=== PATIENT | female | born 1950 | race African-American/Black ===

== ENCOUNTER 2024-08-07 09:36 | Emergency (ER) | payer MEDICARE, MEDICAID, SELFPAY ==
[2024-08-07] VITALS (22 sets, daily range): BP systolic 127–152; BP diastolic 77–89; PULSE 73–99; RESP 16; TEMP 37; O2SAT 97–100
--- NOTE | ~2024-08-07 | XR_ITS ---
EXAMINATION: XR chest 1V portable DATE: 08/07/2024 10:39 INDICATION: Cough and aspiration TECHNIQUE: frontal view of the chest was obtained. COMPARISON: None FINDINGS: Multiple skinfolds project over the right hemithorax. Visualized lungs are clear with no focal airspa ce opacities, pulmonary edema, pleural effusion or pneumothorax. The cardiomediastinal silhouette is normal. Degenerative change at the right shoulder which is partially obscured by the patient's superi mposed hand. Suggestion of prior left acromioplasty and distal clavicle resection. IMPRESSION: 1. No acute cardiopulmonary disease. Reviewed, dictated and finalized at location A. EL TECHNICIAN
--- NOTE | 2024-08-07 10:19 | ED_ITS ---
HPI - General Adult General Chief complaint: Unspecified Stated complaint: choking on sputum, resolved Time Seen by Provider: 08/07/24 10:02 History of Present Illness HPI narrative: 74-year-old female presenting after choking. Coming from a nursing facility. Her daughter is at bedside and states that the patient is currently at baseline. She reportedly had a coughing episode after eating this morning and her oxygen saturation dropped to the upper 80s. She was suctioned and her vitals normalized and EMS was called. Also concerned that her sodium might be too high as it was recently. Related Data Allergies Allergy/AdvReac Type Severity Reaction Status Date / Time No Known Allergies Allergy Verified 08/07/24 11:55 Review of Systems 2 Review of Systems: All systems reviewed & are unremarkable except as noted in HPI and below Exam 2 Narrative: GENERAL: Chronically ill-appearing, no acute distress, chronic contractures, nonverbal at baseline HEAD: Normocephalic, atraumatic. EYES: PERRLA and EOMI. ENT: Mucous membranes moist. NECK: Supple. CHEST: Clear to auscultation. No respiratory distress. HEART: Regular rate and rhythm. EXTREMITIES: Normal range of motion SKIN: Warm, dry, no rash. NEURO: Nonverbal and contracted at baseline PSYCH: Normal mood and affect. Course Vital Signs Vital signs: Vital Signs Temperature 98.6 F 08/07/24 09:32 Pulse Rate 99 08/07/24 09:32 Respiratory Rate 16 08/07/24 09:32 Blood Pressure 134/79 08/07/24 09:32 Pulse Oximetry 100 08/07/24 09:32 Oxygen Delivery Room Air 08/07/24 09:32 Temperature 98.6 F 08/07/24 09:32 Pulse Rate 73 08/07/24 14:46 Respiratory Rate 16 08/07/24 14:46 Blood Pressure 127/82 08/07/24 14:46 Pulse Oximetry 100 08/07/24 14:46 Oxygen Delivery Room Air 08/07/24 09:32 Medical Decision Making MDM Narrative Medical decision making narrative: 74-year-old female presenting with a choking episode. Vitals here within normal limits. She saturating 100% on room air. Exam remarkable for the above. Chest x-ray without acute abnormalities. Patient's daughter was concerned for dehydration so BMP was checked and sodium is 154. She is receiving a L of fluids for hydration and then she is safe for outpatient management. Discussed appropriate supportive care and follow-up. Her daughter is agreeable with this plan. Discharged in stable condition. Differential Diagnosis Differential Diagnosis: Choking episode, cough, aspiration, dehydration Medical Records Medical records reviewed: Yes I reviewed the external patient's medical records. Vital Signs Vital Signs: Vital Signs Temperature 98.6 F 08/07/24 09:32 Pulse Rate 99 08/07/24 09:32 Respiratory Rate 16 08/07/24 09:32 Blood Pressure 134/79 08/07/24 09:32 Pulse Oximetry 100 08/07/24 09:32 Oxygen Delivery Room Air 08/07/24 09:32 Temperature 98.6 F 08/07/24 09:32 Pulse Rate 73 08/07/24 14:46 Respiratory Rate 16 08/07/24 14:46 Blood Pressure 127/82 08/07/24 14:46 Pulse Oximetry 100 08/07/24 14:46 Oxygen Delivery Room Air 08/07/24 09:32 Lab Data Lab results reviewed: Yes I reviewed the patient's lab results. 08/07/24 11:24 Labs: Lab Results 08/07/24 Range/Units 11:24 Sodium 154 H (137-145) mmol/L Potassium 4.1 (3.4-5.0) mmol/L Chloride 117 H (98-107) mmol/L Carbon Dioxide 29 (22-30) mmol/L Anion Gap 8 (4-12) mmol/L BUN 17 (7-17) mg/dL Creatinine 0.70 (0.7-1.0) mg/dL Estim Creat Clear Calc 36 ml/min Estimated GFR > 60 (59 - ) Glucose 118 H (65-110) mg/dL Calcium 11.1 H (8.4-10.2) mg/dL Imaging Data Radiologist's impression: ITS Impressions Chest X-Ray 08/07/24 10:46 IMPRESSION: 1. No acute cardiopulmonary disease. Critical Care Time Critical Care Time Critical Care Time: No Discharge Plan Discharge Clinical Impression: Choking episode, Dehydration Patient Disposition: NH [facility]sp/Asst Living Condition: Stable Instructions: Antibiotic Form Additional Instructions: Please try to drink more hydrating fluids such as water, Gatorade, Powerade. Follow-up closely with your PCP. If your symptoms worsen or other concerning symptoms arise, please return to the ER. Patient Language: Romanian Follow-up/Referrals: Mikcey,MD Julian [Primary Care Provider] -
[2024-08-07 11:40] LABS: Anion Gap 8 mmol/L (4-12); Blood Urea Nitrogen 17 mg/dL (7-17); Calcium 11.1 mg/dL (8.4-10.2); Carbon Dioxide 29 mmol/L (22-30); Chloride 117 mmol/L (98-107); Estimated CRCL calculation 36 ml/min; Estimated Glomerular Filt Rate > 60; Glucose 118 mg/dL (65-110); Potassium 4.1 mmol/L (3.4-5.0); Sodium 154 mmol/L (137-145)
[2024-08-07] MEDS: Please add drug allergy info to patient profile. 1 EACH XX (12:01)
[2024-08-07] MEDS: SODIUM CHLORIDE 0.9% IV 1,000 ML 999 ML IV CONT (12:01)
--- NOTE | 2024-08-07 14:31 | PC.NURSE ---
Tolerated liquids well without choking.
--- OUTSIDE RECORDS SUMMARY | 2024-08-11 01:38 | XMS_ITS | Clinical Summary ---
Author Organization [facility] Address [facility]. [place], [place] [id number] [place] [id number] Care Team Providers Care Lumber Marker Name Role Phone Chuck Gibson MD Primary Care Provider [phone] Allergies No known active allergies Medications Cholecalciferol (VITAMIN D3) 50 MCG (1999 UT) Tab Take 1 tablet (2,000 Units total) by mouth daily. Active divalproex DR sprinkle 125 MG capsule Take 1 capsule (125 mg total) by mouth 3 (three) times a day. Active risperiDONE 1 MG tablet Take 1 tablet (1 mg total) by mouth 2 (two) times daily. Active memantine 10 MG tablet Take 1 tablet (10 mg total) by mouth 2 (two) times daily. Active acetaminophen 325 MG tablet Take 2 tablets (650 mg total) by mouth every 6 (six) hours as needed for Pain. 30 tablet 02/19/2020 Active Senna (SENNOSIDES) 8.6 MG tablet Take 1 tablet (8.6 mg total) by mouth 2 (two) times a day. Active Active Problems Problem Noted Date Diagnosed Date Hip fracture ([facility]) 02/16/2020 Social History Tobacco Use Types Packs/Day Years Used Date Smoking Tobacco: Former Cigarettes Smokeless Tobacco: Never Alcohol Use Standard Drinks/Week Comments No 0 (1 standard drink = 0.6 oz pur e alcohol) AUDIT-C Answer Date Recorded Frequency of Alcohol Consumption Never 2019 Average Number of Drinks Not on file 019 Frequency of Binge Drinking Not on file 02/22 Comments No Sex and Gender Information Value Date Recorded Sex Assigned at Female 02/16/2020 11:50 PM CDT Legal Sex Female 6:29 PM CDT Gender Identity Female 02/16/2020 11:50 PM CDT Sexual Orientation Not on file Last Filed Vital Signs Vital Sign Reading Time Taken Comments Blood Pressure 112/68 02/03/2023 4:00 AM CDT Pulse 79 02/03/2023 4:30 AM CDT Temperature 37.3 ??C (99.2 ??F) 02/02/2023 9:43 PM CD T Respiratory Rate 16 02/03/2023 4:30 AM CDT Oxygen Saturation 100% 02/03/2023 4:30 AM CDT Inhaled Oxygen Concentration - - Weight 49.2 kg (108 lb 7.5 oz) 02/02/2023 9:43 P M CDT Height 162.6 cm (5' 4 ) 02/02/2023 9:43 PM CDT Body Mass Index 18.62 02/02/2023 9:43 PM CDT Plan of Treatment Health Maintenance Due Date Last Done Comments Colorectal Cancer Screening Colonoscopy (10 Years) 1951 DTaP, Tdap and Td Vaccines ( 1 - Tdap) 1970 Mammogram Screening 1991 Zoster Vaccines (1 of 2) 2001 RSV Immunization or 60+ Years (1 - 1-dose 60+ series) 2011 Annual Medicare Wellness Visit 2016 Dexa Scan (General) 2016 Pneumococcal Vaccine: 65+ Years (1 of 1 - PCV) 2016 COVID-19 Vaccine (3 - 2023-2 5 season) 2024 09/22/2020, 09/01/2020 Influenza Adult (#1) 2024 Hepatitis C Completed 02/02/2023 Meningococcal Vaccine Aged Out No shree neeraj eligible based on patient's age to complete this topic RSV Immunizations Under 20 Months Aged Out No longer eligible b ased on patient's age to complete this topic Medical Devices Implanted Type Area Barrel Washer Device Identifier Shelf Expiration Date Model / Serial / Lot Depuy Articul/Bahman Self Centering Bipolar Head Implanted:Qty: 1 on 02/17/2020 by Garfield Canseco MD at [facility] Hip Components Left: Hip [employer] 09/24/2024 1035-47-0 00 / / [id number] Depuy Articul/Bahman Femoral Head Implanted:Qty: 1 on 02/17/2020 by Garfield Canseco MD at [facility] Hip Components Left: Hip [employer] 08/24/2024 1365-11-0 00 / / [id number] Depuy Femoral Stem Actis [employer] Hip Prosthesis Cementless Implanted:Qty: 1 on 02/17/2020 by Garfield Canseco MD at [facility] Hip Components Left: Hip [employer] 09/24/2029 1010-11-0 60 / / [id number] Procedures Procedure Name Priority Date/Time Associated Diagnosis Comments HEPATITIS PANEL,ACUTE Routine 02/02/2023 2:56 AM CDT from Last 3 Months or Most Recently Relevant to Health Maintenance Results * HEPATITIS PANEL,ACUTE (02/02/2023 2:56 AM CDT) HEPATITIS B SURFACE AG NON-REACTI VE NON-REACTI VE 02/03/2023 3:43 AM CDT [facility] HEP B CORE IGM NON-REACTI VE NON-REACTI VE 02/03/2023 4:10 AM CDT [facility] HAV IGM NON-REACTI VE NON-REACTI VE 02/03/2023 4:10 AM CDT [facility] HEPATITIS C AB NON-REACTI VE NON-REACTI VE 02/03/2023 4:10 AM CDT [facility] 02/02/2023 2:56 AM CDT us Del Tang MD,PHD LABORATORY Final Resu lt [facility] [address] [place] [address], from Last 3 Months or Most Recently Relevant to Health Maintenance Additional Health Concerns Infection Onset Date Last Indicated ESBL - Extended Spectrum Bet a-lactamase Comment:02/02/23 +ESBL Urine 02/02/2023 02/02/2023 Insurance MEDICARE MEDICAID Advance Directives Documents on File Type Date Recorded Patient Watch Assembly Instructor Expl anation Advance Directives and Living Will 02/03/2023 2:25 PM Advance Directives and Living Will 02/20/2020 11:12 AM 06/27/18 POA FOR HEALTHCARE Advance Directives and Living Will 02/20/2020 11:10 AM 09/29/19 POLST FORM * Full Code (Latest Code Status on File) Date Activated Date Inactivated Comments 02/16/2020 11:06 PM 02/19/2020 9:13 PM Care Teams Lumber Marker Relationship Specialty Start Date End Date Chuck Gibson MD PCP - General FAMILY PRACTICE 03/08/19
--- OUTSIDE RECORDS SUMMARY | 2024-08-11 01:38 | XMS_ITS | Encounter Summary ---
Author Organization [facility] Address [address] [place] [address]. [place] [address] Care Team Providers Care Audit Officer Name Role Phone Chuck Gibson MD Primary Care Provider [phone] Reason for Referral * Imaging (Emergency) - Closed Specialty Diagnoses / Procedures Referred By Contac t Referred To Contact RADIOLOGY Procedures CT HEAD WO Del Veliz MD,PHD [address] [place] [address] Phone: tel: fax: Referral ID Status Reason Start Date Expiration Date Visits Re quested Visits Authorized [id number] Closed 02/02/2023 02/03/2024 1 1 * Imaging (Urgent) - Closed Specialty Diagnoses / Procedures Referred By Contac t Referred To Contact RADIOLOGY Procedures CT CHEST+ABD+PEL WO Del Veliz MD,PHD [address] [place] [address] Phone: tel: fax: Referral ID Status Reason Start Date Expiration Date Visits Re quested Visits Authorized [id number] Closed 02/02/2023 02/03/2024 1 1 Reason for Visit * Reason Comments Abnormal Lab Results Encounter Details Date Type Department Care Team (Late st Contact Info) Description 02/02/2023 9:32 PM CDT - 02/03/2023 7:02 AM CDT Emergency [facility] [place] [address] Del Tang MD,PHD [address] [place] [id number] Abnormal Lab Results Discharge Disposition: [facility] Social History Tobacco Use Types Packs/Day Years [...] PM CDT Sexual Orientation Not on file documented as of this encounter Last Filed Vital Signs Vital Sign Reading [...] Mass Index 18.62 02/02/2023 9:43 PM CDT documented in this encounter Functional Status * RETIRED Are you deaf or do you have serious difficulty hearing Answer Date of Assessment Author Status No 02/16/2020 11:58 PM CDT Acti ve * RETIRED Are you blind or do you have serious difficulty seeing, even when wearing glasses? Answer Date of Assessment Author Status Yes 02/16/2020 11:58 PM CDT Acti ve * Do you have serious difficulty walking or climbing stairs? Answer Date of Assessment Author Status Yes 02/16/2020 11:58 PM Ange Dye RN Active * Do you have difficulty dressing or bathing? Answer Date of Assessment Author Status Yes 02/16/2020 11:58 PM Ange Dye RN Active * Because of a physical, mental, or emotional condition, do you have difficulty doing errands alone such as visiting a doctor's office or shopping? Answer Date of Assessment Author Status Yes 02/16/2020 11:58 PM Ange Dye RN Active documented as of this encounter Mental Status * Because of a physical, mental, or emotional condition, do you have serious difficulty concentrating, remembering, or making decisions? Answer Entry Date Author Status Yes 02/16/2020 11:58 PM Ange Dye RN Active documented in this encounter Discharge Instructions * Attachments The following attachments cannot be sent through Care Everywhere. * Urinary Tract Infection Discharge Instructions, Adult (Uruguayan) * Constipation Discharge Instructions, Adult ([place]ayan) documented in this encounter Medications at Time of Discharge acetaminophen 325 MG tablet Take 2 tablets (650 mg total) by mouth every 6 (six) hours as needed for Pain. 30 tablet 02/19/[address] sprinkle 125 MG capsule Take 1 capsule (125 mg total) by mouth 3 (three) times a day. memantine 10 MG tablet Take 1 tablet (10 mg total) by mouth 2 (two) times daily. Senna (SENNOSIDES) 8.6 MG tablet Take 1 tablet (8.6 mg total) by mouth 2 (two) times a day. Cholecalciferol (VITAMIN D3) 50 MCG (2000 UT) Tab Take 1 tablet (2,000 Units total) by mouth daily. risperiDONE 1 MG tablet Take 1 tablet (1 mg total) by mouth 2 (two) times daily. cephALEXin (KEFLEX) 500 MG capsule Take 1 capsule (500 mg total) by mouth 4 (four) times daily for 14 days. 56 capsule 02/03/2023 3 lactulose 20 GM/30ML solution Take 30 mLs (20 g total) by mouth daily as needed (constipation). Once daily for the next 3 days, and then once daily as needed for constipation 240 mL 02/03/2023 3 documented as of this encounter ED Notes * Minerva Jamison RN - 02/03/2023 6:59 AM CDT Ems here for tranport. * Bridget Pruitt RN - 02/03/2023 4:15 AM CDT Report called to Lisseth at [facility]. * Bridget Pruitt RN - 02/03/2023 4:10 AM CDT [facility] to [facility] ETA 0500 * Del Tang MD,PHD - 02/02/2023 10:26 PM CDT EMERGENCY DEPARTMENT ENCOUNTER Chief Complaint Chief Complaint Patient presents with Abnormal Lab Results History of Present Illness 72-year-old female presenting to the emergency department due to abnormal labs obtained from her outside facility. As reported by her type facility the patient has not eaten for several days. They obtained labs which indicated that she had a leukocytosis and high sodium. Patient is completely nonverbal and contracted in all 4 extremities and unable to provide subjective history. Physical Exam Filed Vitals: 02/02/23 2139 02/02/23 2143 02/02/23 2200 BP: (!) 159/95 (!) 159/95 119/74 Pulse: 92 94 95 Resp: 18 18 16 Temp: 99.2 ??F (37.3 ??C) SpO2: 93% Weight: 49.2 kg (108 lb 7.5 oz) Height: 5' 4 (1.626 m) CONSTITUTIONAL: Patient is awake, alert, in no acute distress, nonverbal HEAD AND FACE: Normocephalic, atraumatic EYES: Normal sclera, extraocular motions grossly normal NECK: Supple, no obvious asymmetry CARDIOVASCULAR: Regular rate and rhythm RESPIRATORY: No respiratory distress or tachypnea ABDOMEN: Abdominal muscles contracted likely chronically NEUROLOGIC: Nonverbal, contracted in all 4 extremities EXTREMITIES: Warm, very low muscle bulk Diagnostic Studies / Procedures LABORATORY STUDIES: Results for orders placed or performed during the hospital encounter of 02/02/23 CBC W/DIFF AUTOMATED Result Value Ref Range WBC 12.2 (H) 4.5 - 11.0 x10'3/uL RBC 4.01 (L) 4.20 - 5.40 x10'6/uL HGB 12.4 12.0 - 16.0 G/DL HCT 39.4 38.0 - 48.0 % MCV 98.3 81.0 - 99.0 FL MCH 30.9 27.0 - 31.0 PG MCHC 31.5 (L) 32.0 - 36.0 G/DL RDW 14.2 11.5 - 14.5 % PLT 342 130 - 400 x10'3/uL MPV 11.1 9.3 - 12.2 FL DIFFERENTIAL TYPE MANUAL DIFFERENTIAL SEG NEUTROPHILS 73 % LYMPHOCYTES 11 % MONOCYTES 16 % ABS. NEUTROPHIL COUNT 8.91 (H) 1.80 - 7.70 x10'3/uL ABS.LYMPHOCYTES CALCULATED 1.34 1.00 - 4.80 x10'3/uL ABS. MONOCYTES CALCULATED 1.95 (H) 0.24 - 0.86 x10'3/uL RBC MORPHOLOGY SLIDE REVIEWED DEANNA 1+ PLT EST. ADEQUATE COMPREHENSIVE METABOLIC PANEL Result Value Ref Range GLUCOSE 112 (H) 70 - 99 MG/DL BUN 19 (H) 7 - 18 MG/DL CREATININE S/P/B 0.75 0.55 - 1.02 MG/DL SODIUM S/P/B 145 136 - 145 MMOL/L POTASSIUM S/P/B 4.5 3.5 - 5.1 MMOL/L CHLORIDE S/P/B 114 (H) 100 - 108 MMOL/L CO2 28.8 21 - 32 MMOL/L CALCIUM S/P/B 10.7 (H) 8.5 - 10.1 MG/DL BILIRUBIN TOTAL S/P/B 0.8 0.2 - 1.2 MG/DL TOTAL PROTEIN S/P/B 8.1 6.4 - 8.2 G/DL ALBUMIN S/P/B 2.9 (L) 3.4 - 5.0 G/DL AST 55 (H) 15 - 37 U/L ALT 59 (H) 14 - 55 U/L ALKALINE PHOSPHATASE S/P/B 103 50 - 136 U/L ANION GAP 2.2 (L) 5 - 15 MMOL/L BUN CREATININE RATIO 25.4 6 - 26 A/G RATIO 0.6 (L) 1.0 - 2.0 RATIO GFR ESTIMATE 85 (L) >90 ML/MIN/1.73 M2 URINALYSIS Result Value Ref Range Specimen Type URINE STRAIGHT CATH COLOR (U) YELLOW TRANSPARENCY TURBID SPECIFIC GRAVITY (U) 1.026 1.001 - 1.030 U PH 5.5 5.0 - 9.0 LEUKOCYTES (U) 250 (A) NEGATIVE NITRITES 2+ (A) NEGATIVE PROTEIN (U) 70 (H) <30 MG/DL URINE GLUCOSE NORMAL NORMAL MG/DL KETONES (U) TRACE (A) NEGATIVE MG/DL UROBILINOGEN NORMAL NORMAL MG/DL BILIRUBIN (U) NEGATIVE NEGATIVE MG/DL BLOOD (U) 1+ (A) NEGATIVE CULTURE & SENSITIVITY INDICATED? SPECIMEN SETUP FOR CULTURE MUCUS FEW /LPF WBC/HPF 69 (H) <6 /HPF RBC/HPF 4 <6 /HPF BACTERIA (U) MANY (A) NONE /HPF SQUAMOUS EPITHELIALS RARE /HPF PROCALCITONIN (PCT) Result Value Ref Range Procalcitonin 0.12 <0.5 NG/ML VALPROIC ACID Result Value Ref Range VALPROIC ACID 63.9 50 - 100 MCG/ML DOSE UNKNOWN LAST DOSE ACETAMINOPHEN Result Value Ref Range ACETAMINOPHEN S/P/B <2.0 (L) 10.0 - 30.0 MCG/ML HEPATITIS PANEL,ACUTE Result Value Ref Range HEPATITIS B SURFACE AG NON-REACTIVE NON-REACTIVE HEP B CORE IGM NON-REACTIVE NON-REACTIVE HAV IGM NON-REACTIVE NON-REACTIVE HEPATITIS C AB NON-REACTIVE NON-REACTIVE LACTIC ACID Result Value Ref Range LACTIC ACID 2.3 (H) 0.4 - 2.0 MMOL/L LACTIC ACID Result Value Ref Range LACTIC ACID 1.0 0.4 - 2.0 MMOL/L CORONAVIRUS (COVID-19) INFLUENZA A & B ANTIGEN IA PANEL Specimen: NASAL Result Value Ref Range CORONAVIRUS ANTIGEN IA NEGATIVE NEGATIVE INFLUENZA A NEGATIVE NEGATIVE INFLUENZA B NEGATIVE NEGATIVE Specimen Type NASAL IMAGING STUDIES CT CHEST+ABD+PEL WO CON Final Result by User, [email or web address] (02/02 5720) INDICATION: Elevated sodium level and white count. Sepsis. Anorexia. Concern for UTI. COMPARISON: None. TECHNIQUE: Axial images were obtained through the chest, abdomen, and pelvis without intravenous and oral contrast. Additional images were reconstructed in the coronal plane. DOSE OPTIMIZATION: This facility uses dose optimization techniques as appropriate to perform exams, including at least one of the following techniques: 1. Automated exposure control. 2. Adjustment of the mA and/or kV according to patient size (this includes techniques or standardized protocols for targeted exams where dose is matched to the indication/reason for exam, i.e. extremities or head). 3. Use of iterative reconstructive technique. FINDINGS: CT Thorax: Pulmonary artery and thoracic aorta: There are thoracic aortic vascular calcifications. There is no aneurysm. Evaluation of the vasculature is limited given the absence of intravenous contrast. Heart: Normal in size and no pericardial effusion. There are coronary arterial calcifications and a possible coronary arterial stent. Mediastinum: No enlarged hilar or mediastinal lymph nodes. No masses. Lungs: No pulmonary nodules or masses. No airspace disease. No pleural effusion. No pneumothorax. Axilla: No enlarged lymph nodes. Chest wall: Unremarkable. Osseous Structures: There is no acute bony process. The visualized spine is intact. CT Abdomen/Pelvis: Liver: Normal. Gallbladder: Normal. Pancreas: Poorly defined on this unenhanced examination. Spleen: Normal. Adrenal glands: Normal. Kidneys: There is a tiny, less than 2 mm nonobstructing calculus in the upper pole of the left kidney. There is no hydronephrosis. The right kidney appears unremarkable on this unenhanced examination. Abdominal wall: Normal. Stomach: Normal. Large and small bowel: There is a moderate to large degree of colonic stool. The small bowel loops appear unremarkable given the absence of oral contrast. Appendix: Normal. Mesentery: Normal. Free fluid: None. Lymph nodes: No enlarged nodes. Vasculature: There are atherosclerotic calcifications of the aorta and iliac arteries. There is no aneurysm. Urinary bladder: Normal. Uterus: Several large coarse calcifications are noted within the uterine myometrium, most consistent with calcified uterine fibroids. Adnexa: Not visualized. Visualized osseous structures: There is no acute bony process. The visualized spine is intact. IMPRESSION: CT Thorax: 1. No acute process. 2. Atherosclerotic changes of the thoracic aorta. 3. Coronary arterial calcification. CT Abdomen/Pelvis: 1. Tiny, less than 2 mm nonobstructing left renal calculus. 2. Moderate to large degree of colonic stool is most consistent with constipation. 3. Multiple calcified uterine fibroids. 4. Atherosclerotic changes of the aorta and iliac arteries. 5. No acute process. Referred By: Interpreted By: Parker Connors MD, 02/02/2023 10:[address] HEAD WO CON Final Result by User, [email or web address] (02/02 2310) Date: 02/02/2023 10:36 PM Exam: CT HEAD WO CON Comparison: CT head dated 2019. Technique: Thin section images were obtained from the skull base through the vertex without IV contrast infusion. Coronal and sagittal reconstructions. A dose lowering technique was used for this procedure, which may include, but is not limited to, dose reduction technique, automated exposure control, the use of iterative reconstruction, and ALARA (As Low As Reasonably Achievable)/ Image gently techniques. History: Elevated sodium levels and white blood cell count. Decreased appetite. Concerns for UTI. Acute mental status of unknown cause. Findings: There is mild atrophy. There is moderate to advanced white matter disease. There is no intracranial hemorrhage. The schrader white matter differentiation is preserved. There is no hyperdense arterial sign. There is no acute vascular distribution infarct. There are old lacunar infarcts in the basal ganglia and left daniels radiata. There are no masses nor mass effect. The basilar cisterns are preserved. The ventricular system is considerably dilated out of proportion to the degree of atrophy. The ventricular dilation has worsened since the prior study and the findings could indicate normal pressure hydrocephalus. The visualized paranasal sinuses and mastoids are clear. The calvarium is intact. Impression: 1. No acute intracranial abnormality. 2. Mild cerebral atrophy. Moderate to advanced white matter disease. 3. Considerable ventricular dilation out of proportion atrophy. This is a nonspecific finding, but could signify normal pressure hydrocephalus or communicating hydrocephalus. Would consider further workup with MRI brain including CSF flow sequences. Referred By: Interpreted By: Obduilo Rolon MD, 02/02/2023 10:59 PM ED Course / Medical Decision Making I reviewed the patient's labs, which are significant for borderline hyperglycemia, prerenal azotemia, and LFT derangements are noted on CMP. Her first lactic acid is borderline elevated 2.3, but improved to 1.0 following IV hydration. Her valproic acid level is therapeutic. Her acetaminophen level is nondetectable. Hepatitis panel is completely nonreactive. I reviewed the radiologist's interpretation of the patient's radiologic diagnostics, which demonstrates senescent changes on CT of the head without acute intracranial abnormality. A CT of the abdomenpelvis reveals constipation without other pathology requiring immediate medical or surgical intervention. I interpreted the patient's pulse oximeter at rest, which is 100% on room air, which is normal and determined that this patient is not hypoxic I interpreted the patient's patient monitor as showing a sinus rhythm and hemodynamic stability <<<<REPEAT VOLUME STATUS AND TISSUE PERFUSION ASSESSMENT FOR SEPSIS>>>> Sepsis was identified at 110 with the result of her urinalysis identifying a urinary tract infection. Blood cultures and a serum lactate were added onto her work-up. The patient was treated with broad-spectrum antibiotics (ceftriaxone), which was given after blood cultures were obtained. The patient was also treated with IV fluids judiciously, a full 30 cc/kg IV fluid bolus was not indicated because the patient was not hypotensive and the patient's serum lactate was less than 4 The initial lactate was 2.3 The patient's repeat lactate after fluids and antibiotics was 1.0 Medication management: The patient was treated with ceftriaxone for urinary tract infection in the emergency department. Lactulose was administered for treatment of constipation. The patient is prescribed lactulose and Keflex for continued treatment The following social determinates of health were considered when determining a disposition: [facility] a [facility] where ongoing medical care and assistance with activity of daily living will be provided The patient readily tolerates PO intake of water. She is at her mental status baseline. Her vital signs are normal. The feared condition of hypernatremia is not demonstrated on labs obtained in the emergency department. Further treatment of her urinary tract infection and further evaluation and treatment of her condition and incidental imaging findings at her nursing facility in the setting of the patient tolerating p.o. intake is deemed appropriate. Clinical Impression Urinary tract infection (Primary) Constipation Disposition: Discharge to sending facility Del Tang MD,PHD 02/03/23 0545 * Nurse Allison Sarmiento II - 02/02/2023 9:34 PM CDT Pt to ED from [facility] for elevated sodium level and wbc count. [facility] staff said pt has had decreased appetite and have concerns for UTI . Pt is nonverbal and A&O x0 at baseline. Cosigned by Bridget Pruitt RN at 02/02/2023 9:51 PM CDT * Alex Morley RN - 02/02/2023 9:32 PM CDT Bed: 07A Expected date: Expected time: Means of arrival: Comments: Bernadette [id number] documented in this encounter Plan of Treatment Not on file documented as of this encounter Procedures Procedure Name Priority Date/Time Associated Diagnosis Comments LACTIC ACID TIMED 02/03/2023 2:56 AM CDT LACTIC ACID TIMED 02/03/2023 1:02 AM CDT CULTURE, BACTERIA, BLOOD STAT 02/03/2023 1:02 AM CDT CULTURE, BACTERIA, BLOOD STAT 02/03/2023 1:00 AM CDT HC URINALYSIS AUTO W/O MICRO STAT 02/02/2023 11:54 PM CDT URINE BACTERIA CULTURE Routine 11:[address] HEAD WO CON STAT 02/02/2023 10:[address] CHEST+ABD+PEL WO CON STAT 02/02/2023 10:53 PM CDT PROCALCITONIN (PCT) Routine 02/02/2023 9 :55 PM CDT COMPREHENSIVE METABOLIC PANEL STAT 02/02/2023 9:55 PM CDT CBC W/DIFF AUTOMATED STAT 02/02/2023 9:55 PM CDT VALPROIC ACID STAT 02/02/2023 9:55 PM CDT ACETAMINOPHEN STAT 02/02/2023 9:55 PM CDT CORONAVIRUS (COVID-19) INFLUENZA A & B ANTIGEN IA PANEL STAT 02/02/2023 10:39 AM CDT HEPATITIS PANEL,ACUTE Routine 02/02/2023 2:56 AM CDT documented in this encounter Results * LACTIC ACID (02/03/2023 2:56 AM CDT) LACTIC ACID VENOUS 1.0 0.4 - 2.0 MMOL/L 02/03/2023 3:23 AM CDT [facility] 02/03/2023 2:56 AM CDT Del Tang MD,PHD LABORATORY Final Resu lt [facility] [address] [place] [address], [place] [phone] * CULTURE, BACTERIA, BLOOD (02/03/2023 1:02 AM CDT) SPEC DESCRIPTION BLOOD 02/03/2023 12:26 AM CDT [facility] SPECIAL REQUESTS NO SPECIAL REQUEST 02/03/2023 12:26 AM CDT [facility] CULTURE RESULT NO GROWTH 5 DAYS 02/08/2023 8:39 AM CDT [facility] BLOOD SPECIMEN OBTAINED FOR BLOOD CULTURE / Unknown 02/03/2023 1:02 AM CDT 02/03/2023 1:06 AM CDT Del Tang MD,PHD MICROBIOLOGY - GENERAL ORD ERABLES Final Result [facility] [address] [place] [id number], [place] [phone] * (ABNORMAL) LACTIC ACID (02/03/2023 1:02 AM CDT) LACTIC ACID VENOUS 2.3(H) 0.4 - 2.0 MMOL/L 02/03/2023 1:27 AM CDT [facility] Comment: BPM CALLED CRITICAL RESULTS AT [id number] TO AND READ BACK BY DIANA GALLO RN 02/03/2023 1:02 AM CDT Del Tang MD,PHD LABORATORY Final Resu lt [facility] [address] [place] [address], [place] [phone] * CULTURE, BACTERIA, BLOOD (02/03/2023 1:00 AM CDT) SPEC DESCRIPTION BLOOD 02/03/2023 12:26 AM CDT [facility] SPECIAL REQUESTS NO SPECIAL REQUEST 02/03/2023 12:26 AM CDT [facility] CULTURE RESULT NO GROWTH 5 DAYS 02/08/2023 8:39 AM CDT [facility] BLOOD SPECIMEN OBTAINED FOR BLOOD CULTURE / Unknown 02/03/2023 1:00 AM CDT 02/03/2023 1:06 AM CDT Del Tang MD,PHD MICROBIOLOGY - GENERAL ORD ERABLES Final Result Performing Organization Address City/State/[facility] Co de Phone Number [facility] [address] [place] [address], [place] [phone] * (ABNORMAL) CULTURE URINE (02/02/2023 11:54 PM CDT) SPEC DESCRIPTION URINE STRAIGHT CATH 02/03/2023 12:15 AM CDT [facility] SPECIAL REQUESTS NO SPECIAL REQUEST 02/03/2023 12:15 AM CDT [facility] CULTURE RESULT >100,000 COL/ML ESCHERICHIA COLI PROBABLE EXTENDED SPECTRUM BETA LACTAMASE INTERVENTION SPECIALIST (A) 02/05/2023 8:27 AM CDT [facility] URINE SPECIMEN OBTAINED BY SINGLE CATHETERIZATION OF URINARY BLADDER / Unknown 02/02/2023 11:54 PM CDT 02/03/2023 12:15 AM CDT Narrative Organism Antibiotic Method Susceptibility Escherichia coli AMPICILLIN JOSE (VITEK) >=32: Resistant Escherichia coli AMPICILLIN/SULBACTAM JOSE (VITEK) >=32: Resistant Escherichia coli CEFEPIME JOSE (VITEK) <=1: Resistant Escherichia coli CEFTRIAXONE JOSE (VITEK) 16: Resistant Escherichia coli CEFTAZIDIME JOSE (VITEK) <=1: Resistant Escherichia coli CEFAZOLIN JOSE (VITEK) >=64: Resistant Escherichia coli ESBL JOSE (VITEK) POS: Resistant Escherichia coli NITROFURANTOIN JOSE (VITEK) <=16: Sensitive Escherichia coli GENTAMICIN JOSE (VITEK) <=1: Sensitive Escherichia coli LEVOFLOXACIN JOSE (VITEK) <=0.12: Sensitive Escherichia coli MEROPENEM JOSE (VITEK) <=0.25: Sensitive Escherichia coli PIPRACIL/TAZO JOSE (VITEK) <=4: Sensitive Escherichia coli TRIMETH-SULFAMETH. JOSE (VITEK) <=20: Sensitive Del Tang MD,PHD MICROBIOLOGY - GENERAL ORD ERABLES Final Result [facility] [address] [place] [id number], * (ABNORMAL) URINALYSIS (02/02/2023 11:54 PM CDT) SPECIMEN TYPE URINE STRAIGHT CATH 02/02/2023 11:54 PM CDT [facility] COLOR (U) YELLOW 02/03/2023 12:14 AM CDT [facility] TRANSPARENCY TURBID 02/03/2023 12:14 AM CDT [facility] SPECIFIC GRAVITY (U) 1.026 1.001 - 1.030 02/03/2023 12:14 AM CDT [facility] U PH 5.5 5.0 - 9.0 02/03/2023 12:14 AM CDT [facility] LEUKOCYTES (U) 250(A) NEGATIVE 02/03/2023 12:14 AM CDT [facility] NITRITES 2+(A) NEGATIVE 02/03/2023 12:14 AM CDT [facility] PROTEIN (U) 70(H) <30 MG/DL 02/03/2023 12:14 AM CDT [facility] URINE GLUCOSE NORMAL NORMAL MG/DL 02/03/2023 12:14 AM CDT [facility] KETONES MG/DL (U) TRACE(A) NEGATIVE MG/DL 02/03/2023 12:14 AM CDT [facility] UROBILINOGEN NORMAL NORMAL MG/DL 02/03/2023 12:14 AM CDT [facility] BILIRUBIN (U) NEGATIVE NEGATIVE MG/DL 02/03/2023 12:14 AM CDT [facility] BLOOD (U) 1+(A) NEGATIVE 02/03/2023 12:14 AM CDT [facility] CULTURE & SENSITIVITY INDICATED? SPECIMEN SETUP FOR CULTURE 02/03/2023 12:14 AM CDT [facility] MUCUS FEW /LPF 02/03/2023 12:14 AM CDT [facility] WBC/HPF 69(H) <6 /HPF 02/03/2023 12:14 AM CDT [facility] RBC/HPF 4 <6 /HPF 02/03/2023 12:14 AM CDT [facility] BACTERIA (U) MANY(A) NONE /HPF 02/03/2023 12:14 AM CDT [facility] SQUAMOUS EPITHELIALS RARE /HPF 02/03/2023 12:14 AM CDT [facility] URINE, STRAIGHT CATH 02/02/2023 11:54 PM CDT us Del Tang MD,PHD URINE ORDERABLES Final Res ult [facility] [address] [place] [address], [place] [phone] * CT HEAD WO CON (02/02/2023 10:53 PM CDT) Anatomical Region Laterality Modality Head Computed Tomogra phy 02/02/2023 10:5 9 PM CDT Impressions 02/02/2023 11:09 PM CDT Impression: 1. ??No acute intracranial abnormality. 2. ??Mild cerebral atrophy. ??Moderate to advanced white matter disease. 3. ??Considerable ventricular dilation out of proportion atrophy. ??This is a nonspecific finding, but could signify normal pressure hydrocephalus or communicating hydrocephalus. ??Would consider further workup with MRI brain including CSF flow sequences. Referred By: ?? Interpreted By: Obdulio Rolon MD, 02/02/2023 10:59 PM Narrative 02/02/2023 11:09 PM CDT Date: 02/02/2023 10:36 PM Exam: CT HEAD WO CON Comparison: CT head dated 2019. Technique: Thin section images were obtained from the skull base through the vertex without IV contrast infusion. Coronal and sagittal reconstructions. A dose lowering technique was used for this procedure, which may include, but is not limited to, dose reduction technique, automated exposure control, the use of iterative reconstruction, and ALARA (As Low As Reasonably Achievable)/ Image gently techniques. History: Elevated sodium levels and white blood cell count. ??Decreased appetite. ??Concerns for UTI. ??Acute mental status of unknown cause. Findings: There is mild atrophy. ??There is moderate to advanced white matter disease. There is no intracranial hemorrhage. The schrader white matter differentiation is preserved. There is no hyperdense arterial sign. There is no acute vascular distribution infarct. ??There are old lacunar infarcts in the basal ganglia and left daniels radiata. ??There are no masses nor mass effect. The basilar cisterns are preserved. ??The ventricular system is considerably dilated out of proportion to the degree of atrophy. ??The ventricular dilation has worsened since the prior study and the findings could indicate normal pressure hydrocephalus. ??The visualized paranasal sinuses and mastoids are clear. The calvarium is intact. Procedure Note Obdulio Rolon MD - 02/02/2023 Date: 02/02/2023 10:36 PM Exam: CT HEAD WO CON Comparison: CT head dated 2019. Technique: Thin section images were obtained from the skull base throughthe vertex without IV contrast infusion. Coronal and sagittalreconstructions. A dose lowering technique was used for this procedure,which may include, but is not limited to, dose reduction technique,automated exposure control, the use of iterative reconstruction, and ALARA(As Low As Reasonably Achievable)/ Image gently techniques. History: Elevated sodium levels and white blood cell count. Decreasedappetite. Concerns for UTI. Acute mental status of unknown cause. Findings: There is mild atrophy. There is moderate to advanced whitematter disease. There is no intracranial hemorrhage. The schrader white matterdifferentiation is preserved. There is no hyperdense arterial sign. Thereis no acute vascular distribution infarct. 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 There are no masses normass effect. The basilar cisterns are preserved. The ventricular systemis considerably dilated out of proportion to the degree of atrophy. Theventricular dilation has worsened since the prior study and the findingscould indicate normal pressure hydrocephalus. The visualized paranasalsinuses and mastoids are clear. The calvarium is intact. Impression: 1. No acute intracranial abnormality. 2. Mild cerebral atrophy. Moderate to advanced white matter disease. 3. Considerable ventricular dilation out of proportion atrophy. This aye nonspecific finding, but could signify normal pressure hydrocephalus orcommunicating hydrocephalus. Would consider further workup with MRI brainincluding CSF flow sequences. Referred By: Interpreted By: Obdulio Rolon MD, 02/02/2023 10:59 PM us Del Tang MD,PHD CT Final Resu lt * CT CHEST+ABD+PEL WO CON (02/02/2023 10:53 PM CDT) Anatomical Region Laterality Modality Chest, Abdomen, Pelvis Computed Tomography 02/02/2023 10:5 5 PM CDT Impressions 02/02/2023 11:01 PM CDT IMPRESSION: CT Thorax: 1. ??No acute process. 2. ??Atherosclerotic changes of the thoracic aorta. 3. ??Coronary arterial calcification. CT Abdomen/Pelvis: 1. ??Tiny, less than 2 mm nonobstructing left renal calculus. 2. ??Moderate to large degree of colonic stool is most consistent with constipation. 3. ??Multiple calcified uterine fibroids. 4. ??Atherosclerotic changes of the aorta and iliac arteries. 5. ??No acute process. Referred By: ?? Interpreted By: Parker Connors MD, 02/02/2023 10:55 PM Narrative 02/02/2023 11:01 PM CDT INDICATION: Elevated sodium level and white count. ??Sepsis. ??Anorexia. ??Concern for UTI. COMPARISON: None. TECHNIQUE: Axial images were obtained through the chest, abdomen, and pelvis without ??intravenous and oral contrast. ??Additional images were reconstructed in the coronal plane. DOSE OPTIMIZATION: This facility uses dose optimization techniques as appropriate to perform exams, including at least one of the following techniques: 1. Automated exposure control. 2. Adjustment of the mA and/or kV according to patient size (this includes techniques or standardized protocols for targeted exams where dose is matched to the indication/reason for exam, i.e. extremities or head). 3. Use of iterative reconstructive technique. FINDINGS: CT Thorax: Pulmonary artery and thoracic aorta: There are thoracic aortic vascular calcifications. ??There is no aneurysm. ??Evaluation of the vasculature is limited given the absence of intravenous contrast. Heart: Normal in size and no pericardial effusion. There are coronary arterial calcifications and a possible coronary arterial stent. Mediastinum: No enlarged hilar or mediastinal lymph nodes. No masses. Lungs: No pulmonary nodules or masses. No airspace disease. No pleural effusion. No pneumothorax. Axilla: No enlarged lymph nodes. Chest wall: Unremarkable. Osseous Structures: There is no acute bony process. ??The visualized spine is intact. CT Abdomen/Pelvis: Liver: Normal. Gallbladder: Normal. Pancreas: Poorly defined on this unenhanced examination. Spleen: Normal. Adrenal glands: Normal. Kidneys: There is a tiny, less than 2 mm nonobstructing calculus in the upper pole of the left kidney. ??There is no hydronephrosis. ??The right kidney appears unremarkable on this unenhanced examination. Abdominal wall: Normal. Stomach: Normal. Large and small bowel: There is a moderate to large degree of colonic stool. ??The small bowel loops appear unremarkable given the absence of oral contrast. Appendix: Normal. Mesentery: Normal. Free fluid: None. Lymph nodes: No enlarged nodes. Vasculature: There are atherosclerotic calcifications of the aorta and iliac arteries. There is no aneurysm. Urinary bladder: Normal. Uterus: Several large coarse calcifications are noted within the uterine myometrium, most consistent with calcified uterine fibroids. Adnexa: Not visualized. Visualized osseous structures: There is no acute bony process. ??The visualized spine is intact. Procedure Note Parker Connors MD - 02/02/2023 INDICATION: Elevated sodium level and white count. Sepsis. Anorexia.Concern for UTI. COMPARISON: None. TECHNIQUE: Axial images were obtained through the chest, abdomen, andpelvis without intravenous and oral contrast. Additional images werereconstructed in the coronal plane. DOSE OPTIMIZATION: This facility uses dose optimization techniques asappropriate to perform exams, including at least one of the followingtechniques: 1. Automated exposure control. 2. Adjustment of the mA and/or kV according to patient size (this includestechniques or standardized protocols for targeted exams where dose ismatched to the indication/reason for exam, i.e. extremities or head). 3. Use of iterative reconstructive technique. FINDINGS: CT Thorax: Pulmonary artery and thoracic aorta: There are thoracic aortic vascularcalcifications. There is no aneurysm. Evaluation of the vasculature islimited given the absence of intravenous contrast. Heart: Normal in size and no pericardial effusion. There are coronaryarterial calcifications and a possible coronary arterial stent. Mediastinum: No enlarged hilar or mediastinal lymph nodes. No masses. Lungs: No pulmonary nodules or masses. No airspace disease. No pleuraleffusion. No pneumothorax. Axilla: No enlarged lymph nodes. Chest wall: Unremarkable. Osseous Structures: There is no acute bony process. The visualized spineis intact. CT Abdomen/Pelvis: Liver: Normal. Gallbladder: Normal. Pancreas: Poorly defined on this unenhanced examination. Spleen: Normal. Adrenal glands: Normal. Kidneys: There is a tiny, less than 2 mm nonobstructing calculus in theupper pole of the left kidney. There is no hydronephrosis. The rightkidney appears unremarkable on this unenhanced examination. Abdominal wall: Normal. Stomach: Normal. Large and small bowel: There is a moderate to large degree of colonicstool. The small bowel loops appear unremarkable given the absence oforal contrast. Appendix: Normal. Mesentery: Normal. Free fluid: None. Lymph nodes: No enlarged nodes. Vasculature: There are atherosclerotic calcifications of the aorta andiliac arteries. There is no aneurysm. Urinary bladder: Normal. Uterus: Several large coarse calcifications are noted within the uterinemyometrium, most consistent with calcified uterine fibroids. Adnexa: Not visualized. Visualized osseous structures: There is no acute bony process. Thevisualized spine is intact. IMPRESSION: CT Thorax: 1. No acute process. 2. Atherosclerotic changes of the thoracic aorta. 3. Coronary arterial calcification. CT Abdomen/Pelvis: 1. Tiny, less than 2 mm nonobstructing left renal calculus. 2. Moderate to large degree of colonic stool is most consistent withconstipation. 3. Multiple calcified uterine fibroids. 4. Atherosclerotic changes of the aorta and iliac arteries. 5. No acute process. Referred By: Interpreted By: Parker Connors MD, 02/02/2023 10:55 PM Del Tang MD,PHD CT Final Resu lt * (ABNORMAL) ACETAMINOPHEN (02/02/2023 9:55 PM CDT) ACETAMINOPHEN S/P/B <2.0(L) 10.0 - 30.0 MCG/ML 02/02/2023 10:45 PM CDT [facility] Comment: ?THERAPEUTIC: 10-30 ?TOXIC: >200 02/02/2023 9:5 5 PM CDT Del Tang MD,PHD LABORATORY Final Resu lt Performing Organization Address City/State/[facility] Co de Phone Number [facility] [address] [place] [address], * VALPROIC ACID (02/02/2023 9:55 PM CDT) VALPROIC ACID 63.9 50 - 100 MCG/ML 02/02/2023 10:46 PM CDT [facility] Comment: ?THERAPEUTIC: 50-100 ?TOXIC: >150 DOSE UNKNOWN LAST DOSE 02/02/2023 10:31 PM CDT [facility] 02/02/2023 9:55 PM CDT Del Tang MD,PHD LABORATORY Final Resu lt Performing Organization Address [facility] Co de Phone Number [facility] [address] [place] [phone], * PROCALCITONIN (PCT) (02/02/2023 9:55 PM CDT) Procalcitonin 0.12 <0.5 NG/ML 02/02/2023 10:38 PM CDT [facility] 02/02/2023 9:55 PM CDT us Del Tang MD,PHD LABORATORY Final Resu lt Performing Organization Address City/[facility]/ZIP Co de Phone Number [facility] [address] [place] [address], [place] [phone] * (ABNORMAL) COMPREHENSIVE METABOLIC PANEL (02/02/2023 9:55 PM CDT) [facility] GLUCOSE 112(H) 70 - 99 MG/DL 02/02/2023 10:21 PM CDT [facility] BUN 19(H) 7 - 18 MG/DL 02/02/2023 10:21 PM CDT [facility] CREATININE S/P/B 0.75 0.55 - 1.02 MG/DL 02/02/2023 10:21 PM CDT [facility] SODIUM S/P/B 145 136 - 145 MMOL/L 02/02/2023 10:21 PM CDT [facility] POTASSIUM S/P/B 4.5 3.5 - 5.1 MMOL/L 02/02/2023 10:21 PM CDT [facility] Comment:SLIGHT HEMOLYSIS, RE SULT MAY BE AFFECTED. CHLORIDE S/P/B 114(H) 100 - 108 MMOL/L 02/02/2023 10:21 PM CDT [facility] CO2 28.8 21 - 32 MMOL/L 02/02/2023 10:21 PM CDT [facility] CALCIUM S/P/B 10.7(H) 8.5 - 10.1 MG/DL 02/02/2023 10:21 PM CDT [facility] BILIRUBIN TOTAL S/P/B 0.8 0.2 - 1.2 MG/DL 02/02/2023 10:21 PM CDT [facility] Comment: THIS ASSAY IS NOT RECOMMENDED FOR PATIENTS UNDERGOING TREATMENT WITH ELTROMBOPAG DUE TO THE POTENTIAL FOR FALSELY ELEVATED RESULTS. TOTAL PROTEIN S/P/B 8.1 6.4 - 8.2 G/DL 02/02/2023 10:21 PM CDT [facility] ALBUMIN S/P/B 2.9(L) 3.4 - 5.0 G/DL 02/02/2023 10:21 PM CDT [facility] AST 55(H) 15 - 37 U/L 02/02/2023 10:21 PM CDT [facility] Comment:SLIGHT HEMOLYSIS, RE SULT MAY BE AFFECTED. ALT 59(H) 14 - 55 U/L 02/02/2023 10:21 PM CDT [facility] ALKALINE PHOSPHATASE S/P/B 103 50 - 136 U/L 02/02/2023 10:21 PM CDT [facility] ANION GAP 2.2(L) 5 - 15 MMOL/L 02/02/2023 10:21 PM CDT [facility] BUN CREATININE RATIO 25.4 6 - 26 02/02/2023 10:21 PM CDT [facility] A/G RATIO 0.6(L) 1.0 - 2.0 RATIO 02/02/2023 10:21 PM T [facility] GFR ESTIMATE 85(L) >90 ML/MIN/1.7 3 M2 02/02/2023 10:21 PM CDT [facility] Comment: NOTE: eGFR is not calculated for patients <18 years of age. This is an estimated GFR calculation using the new CKD EPI creatinine equation without race and so does not require a correction factor for race. This estimated GFR should not be used for calculating drug doses. 02/02/2023 9:55 PM CDT us Del Tang MD,PHD LABORATORY Final Resu lt [facility] [address] [place] [address], [place] [phone] * (ABNORMAL) CBC W/DIFF AUTOMATED (02/02/2023 9:55 PM CDT) WBC 12.2(H) 4.5 - 11.0 x10'3/uL 02/02/2023 10:07 PM CDT [facility] RBC 4.01(L) 4.20 - 5.40 x10'6/uL 02/02/2023 10:07 PM CDT [facility] HGB 12.4 12.0 - 16.0 G/DL 02/02/2023 10:07 PM CDT [facility] HCT 39.4 38.0 - 48.0 % 02/02/2023 10:07 PM CDT [facility] MCV 98.3 81.0 - 99.0 FL 02/02/2023 10:07 PM CDT [facility] MCH 30.9 27.0 - 31.0 PG 02/02/2023 10:07 PM CDT [facility] MCHC 31.5(L) 32.0 - 36.0 G/DL 02/02/2023 10:07 PM CDT [facility] RDW 14.2 11.5 - 14.5 % 02/02/2023 10:07 PM CDT [facility] PLT 342 130 - 400 x10'3/uL 02/02/2023 10:07 PM CDT [facility] MPV 11.1 9.3 - 12.2 FL 02/02/2023 10:07 PM CDT [facility] DIFFERENTIAL TYPE MANUAL DIFFERENTIAL 02/02/2023 10:29 PM CDT [facility] SEG NEUTROPHILS 73 % 10:29 PM CDT [facility] LYMPHOCYTES 11 % 02/02/2023 10:29 PM CDT [facility] MONOCYTES 16 % 02/02/2023 10:29 PM CDT [facility] ABS. NEUTROPHILS CALCULATED 8.91(H) 1.80 - 7.70 x10'3/uL 02/02/2023 10:29 PM CDT [facility] ABS.LYMPHOCYTES CALCULATED 1.34 1.00 - 4.80 x10'3/uL 02/02/2023 10:29 PM CDT [facility] ABS. MONOCYTES CALCULATED 1.95(H) 0.24 - 0.86 x10'3/uL 02/02/2023 10:29 PM CDT [facility] RBC MORPHOLOGY SLIDE REVIEWED 2022 10:29 PM CDT [facility] POIKLO 1+ 02/02/2023 10:29 PM CDT [facility] PLT EST. ADEQUATE 02/02/2023 10:29 PM CDT [facility] 02/02/2023 9:55 PM CDT Del Tang MD,PHD LABORATORY Final Resu lt [facility] [address] [place] [id number], * CORONAVIRUS (COVID-19) INFLUENZA A & B ANTIGEN IA PANEL (02/02/2023 10:39 AM CDT) Pathologist [facility] CORONAVIRUS ANTIGEN IA NEGATIVE NEGATIVE 02/03/2023 12:19 AM CDT [facility] Comment: NEGATIVE RESULTS SHOULD BE TREATED PRESUMPTIVE AND CONFIRMED WITH A MOLECULAR ASSAY IF NECESSARY FOR PATIENT MANAGEMENT. NEGATIVE RESULTS DO NOT RULE OUT COVID 19 AND SHOULD NOT BE USED THE SOLE BASIS FOR TREATMENT OR PATIENT MANAGEMENT DECISIONS, INCLUDING INFECTION CONTROL DECISIONS. NEGATIVE RESULTS SHOULD BE CONSIDERED IN THE CONTEXT OF A PATIENT'S RECENT EXPOSURES, HISTORY AND THE PRESENCE OF CLINICAL SIGNS AND SYMPTOMS CONSISTENT WITH COVID 19. THIS TEST HAS BEEN AUTHORIZED BY THE FDA UNDER AN EMERGENCY USE AUTHORIZATION (EUA) FOR USE BY AUTHORIZED LABORATORIES. INFLUENZA A NEGATIVE NEGATIVE 02/03/2023 12:19 AM CDT [facility] INFLUENZA B NEGATIVE NEGATIVE 02/03/2023 12:19 AM CDT [facility] Comment: Interpretation: Negative for Influenza A and B. A negative result does not exclude influenza virus infection. If influenza is circulating in your community, a diagnosis of influenza should be considered based on a patient's clinical presentation and empiric antiviral treatment should be considered, if indicated. If more conclusive testing is needed for hospitalized inpatients, follow-up confirmatory testing with RT-PCR requires a separate order. SPECIMEN TYPE NASAL 02/02/2023 11:54 PM CDT [facility] NASAL STRUCTURE / Unknown 02/02/2023 10:39 AM CDT us Del Tang MD,PHD MICROBIOLOGY - GENERAL ORD ERABLES Final Result Performing Organization Address [facility]/ZIP Co de Phone Number [facility] [address] [place], [place] [address], [place] [phone] * HEPATITIS PANEL,ACUTE (02/02/2023 2:56 AM CDT) HEPATITIS B SURFACE AG NON-REACTI VE NON-REACTI VE 02/03/2023 3:43 AM CDT [facility] HEP B CORE IGM NON-REACTI VE NON-REACTI VE 02/03/2023 4:10 AM CDT [facility] HAV IGM NON-REACTI VE NON-REACTI VE 02/03/2023 4:10 AM CDT [facility] HEPATITIS C AB NON-REACTI VE NON-REACTI VE 02/03/2023 4:10 AM CDT [facility] 02/02/2023 2:56 AM CDT us Del Tang MD,PHD LABORATORY Final Resu lt [facility] [address] [place] [address], [place] [phone] documented in this encounter Visit Diagnoses Diagnosis Urinary tract infection- Primary Urinary tract infection, site not specified Constipation Unspecified constipation documented in this encounter Administered Medications Inactive Administered Medications - up to 3 most recent administrations Medication Order MAR Action Action Date Dose Rate Site cefTRIAXone (ROCEPHIN) 2 g in sodium chloride 0.9 % 50 mL IVPB 2 g, Intravenous, at 100 mL/hr, Once, 1 dose, On Fri02/03/23 at 0115 New Bag 02/03/2023 1:48 AM CDT 2 g 100 mL/hr lactated ringers bolus infusion 1,000 mL 1,000 mL, Intravenous, Administer over 30 Minutes, Once, 1 dose, On 02/02/23 at 2345 New Bag 02/02/2023 11:58 PM CDT 1,000 mLs lactulose (CHRONULAC) 10 GM/15ML solution 20 g 20 g, Oral, Once, 1 dose, On Fri02/02/23 at 2345 Given 02/03/2023 1:01 AM CDT 20 g documented in this encounter Active and Recently Administered Medications Times are shown in CDT. Scheduled Medication Order 02/01/2023 02/02/2023 02/03/2023 cefTRIAXone (ROCEPHIN) 2 g in sodium chloride 0.9 % 50 mL IVPB (COMPLETED) 2 g, Intravenous, at 100 mL/hr, Once, 1 dose, On Fri02/03/23 at 0115 0148 (New Bag - Provider: Bridget Pruitt RN)0234 (Infusion Stop Time - Provider: Marleen Kent RN) lactated ringers bolus infusion 1,000 mL (COMPLETED) 1,000 mL, Intravenous, Administer over 30 Minutes, Once, 1 dose, On 02/02/23 at 2345 2358 (New Bag - Provider: Bridget Pruitt RN) 0101 (Infusion Stop Time - Provider: Bridget Pruitt RN) lactulose (CHRONULAC) 10 GM/15ML solution 20 g (COMPLETED) 20 g, Oral, Once, 1 dose, On 02/02/23 at 2345 0101 (Given - Provid er: Bridget Pruitt RN) documented in this encounter Additional Health Concerns Infection Onset Date Last Indicated Resolved Time COVID-19 Rule Out 02/02/2023 02/02/2023 02/03/2023 12:19 AM CDT documented as of this encounter Care Teams Audit Officer Relationship Specialty Start Date End Date Chuck Gibson MD PCP - General FAMILY PRACTICE 03/08/19 documented as of this encounter
--- OUTSIDE RECORDS SUMMARY | 2024-08-11 01:38 | XMS_ITS | Encounter Summary ---
Author Organization [facility] Address [address] [place] [address]. [place], [place] [address] [place] [id number] Care Team Providers Care Mental Health Professional Name Role Phone Chuck Gibson MD Primary Care Provider [phone] Reason for Visit * Reason Comments Image (SCAN) Encounter Details Date Type Department Care Team (Late st Contact Info) Description 05/08/2020 Scan [facility] [place] [address] Scanned, Documents Image (SCAN) Social History Tobacco Use Types Packs/Day Years [...] on file documented as of this encounter Functional Status * RETIRED Are [...] Assessment Author Status Yes 02/16/2020 11:58 PM HALEYT Ange John RN Active * Do you have difficulty dressing or bathing? Answer Date of Assessment Author Status Yes 02/16/2020 11:58 PM HALEYT Ange John RN Active * Because of a physical, [...] Dye RN Active documented in this encounter Plan of Treatment Not on file documented as of this encounter Procedures Procedure Name Priority Date/Time Associated Diagnosis Comments IMAGE GENERIC Routine 02/16/2020 documented in this encounter Results * IMAGE STUDY (02/16/2020) Anatomical Region Laterality Modality Other us Documents Scanned SCANNING Final Result documented in this encounter Visit Diagnoses Not on filedocumented in this encounter Care Teams Mental Health Professional Relationship Specialty Start Date End Date Chuck Gibson MD PCP - General FAMILY PRACTICE 03/08/19 documented as of this encounter
--- OUTSIDE RECORDS SUMMARY | 2024-08-11 01:39 | XMS_ITS | Encounter Summary ---
Author Organization [facility] Address [address] [place] [address]. [place], [place] [id number] [place] [id number] Care Team Providers Care Registration Manager Name Role Phone Ramirez Gibson MD Primary Care Provider [phone] Reason for Visit * Reason Comments Fall Left hip fracture pe r X-Rays from CT * Auth/Cert Specialty Diagnoses / Procedures Referred By Contac t Referred To Contact Diagnoses Hip fx, left, closed, initial encounter ([facility] Hip fracture ([facility]) Procedures NA Referral ID Status Reason Start Date Expiration Date Visits Re quested Visits Authorized [id number] 1 1 Encounter Details Date Type Department Care Team (Late st Contact Info) Description 02/17/2020 3:25 PM CDT - 02/17/2020 5:45 PM CDT Surgery [facility] [place] [address] Garfield Pepper MD [address] [place] [id number] ARTHROPLASTY HIP ROMEO ANTERIOR APPROACH Surgery Details Date/Time Status Location OR Service Patient Class Case Class Case Type Trauma Case? 02/17/2020 3:25 PM Posted [facility] OR OR 8 Orthopedics Inpatient No Panel 1 Procedure LRB Anes Op Region Wound Class Comments ARTHROPLASTY HIP ROMEO ANTERIOR APPROACH Left Spinal Hip Clean Surgeon Surgeon Role Service Panel Garfield Pepper MD Primary Orthopedics 1 documented in this encounter Social History Tobacco Use Types Packs/Day Years [...] PM CDT Sexual Orientation Not on file COVID-19 Exposure Response Date Recorded In the last month, have you been in contact with someone who was confirmed or suspected to have Coronavirus / COVID-19? No / Unsure 02/16/2020 8:32 PM CDT documented as of this encounter Last Filed Vital Signs Vital Sign Reading Time Taken Comments Blood Pressure 132/77 02/17/2020 5:45 PM CDT Pulse 75 02/17/2020 5:45 PM CDT Temperature 36.9 ??C (98.4 ??F) 02/17/2020 5:15 PM CD T Respiratory Rate 23 02/17/2020 5:45 PM CDT Oxygen Saturation 98% 02/17/2020 5:45 PM CDT Inhaled Oxygen Concentration - - Weight 47.6 kg (104 lb 15 oz) 02/16/2020 11:00 P M CDT Height 162.6 cm (5' 4 ) 02/16/2020 11:00 PM CDT Body Mass Index 18.01 02/16/2020 11:00 PM CDT documented in this encounter Functional Status * Question Answer Date of Assessment Author Status Do you have serious difficulty walking or climbing stairs? Yes 02/16/2020 11:58 PM CDT Ange John RN A ctive * Question Answer Date of Assessment Author Status Do you have difficulty dressing or bathing? Yes 02/16/2020 11:58 PM CDT Ange John RN Active Because of a physical, mental, or emotional condition, do you have difficulty doing errands alone such as visiting a doctor's office or shopping? Yes 02/16/2020 11:58 PM CDT Ange John RN Ac tive * RETIRED Are you deaf or do [...] Author Status Yes 02/16/2020 11:58 PM CDT Ange John RN Active * Do you have difficulty dressing or bathing? Answer Date of Assessment Author Status Yes 02/16/2020 11:58 PM CDT Ange John RN Active * Because of a physical, mental, or emotional condition, do you have difficulty doing errands alone such as visiting a doctor's office or shopping? Answer Date of Assessment Author Status Yes 02/16/2020 11:58 PM CDT Ange John RN Active documented as of this encounter Mental Status * Question Answer Entry Date Author Status Because of a physical, mental, or emotional condition, do you have serious difficulty concentrating, remembering, or making decisions? Yes 02/16/2020 11:58 PM CDT Ange John RN Active * Because of a physical, mental, or emotional condition, do you have serious difficulty concentrating, remembering, or making decisions? Answer Entry Date Author Status Yes 02/16/2020 11:58 PM Ange Dye RN Active documented in this encounter Discharge Summaries * Tramaine Gonzalez MD - 02/19/2020 11:00 AM CDT Hospitalist Discharge Summary Patient ID: Diane Kline. female. 1950. Admit date: 02/16/2020 8:42 PM Discharge date and time: 02/19/20 Admitting Physician: Asha Eckert MD Attending Physician: Tramaine Gonzalez MD Primary Care Physician: RAMIREZ GIBSON MD Discharge Physician: TRAMAINE GONZALEZ MD Hospital Diagnosis: Hip fracture ([facility]) Procedures: 02/17/20 - L hip hemiarthroplasty Discharged Condition: Good Code Status: Full Code Indication for Admission: Chief Complaint Patient presents with ??? Fall Left hip fracture per X-Rays from CT History of Present Illness: Diane Kline is a 69-year-old female With past medical history significant for dementia, seizure disorder, glaucoma, patient is nonverbal at baseline, patient presented from nursing facility where patient is at the memory unit. Per ER note patient was getting dressed and had both legs and pants and she stood up and fell landed on her left side. X-ray was obtained and showed left hip fracture so patient was transferred to our facility, in the ER patient was evaluated, Ortho was consulted. Readmission/Mortality Score at discharge: Low 0-28, Medium 29-58, High >59 LACE+ Score Readmission Score: 51 Male Patient: Urgent Admission: 15 Discharge Institution: Length of Stay: 4 Alternative Level of Care Status: 0 ED Visits in Previous 6 Months: 0 Elective Admission in Previous Year: 0 Comorbidity Score (by age & number of urgent admissions): 32 Hospital Course: Hip fracture: XR with acute L subcapital femoral neck fracture. Patient admitted to the medical floor Orthopedic surgery consulted Pain control - monitor for toxicity with IV pain meds. S/p L hip hemiarthroplasty 02/16 Had one fever after surgery, since afebrile. Continue Lovenox for DVT ppx x 30 days. F/U XR hip in 6 weeks and send to Pepper's office. No need for f/u unless complication as in SNF. ?? Dementia: Cont home medication Patient nonverbal at baseline Depakote is taken for behavioral issues. NO history of seizure disorder. Continue home meds on d/c. ?? Underweight BMI 18.01 Normal albumin Encourage increased caloric and protein intake for healing. Dietitian consulted and recommended Glucerna TID. Findings that require further workup: XR hip in 6 weeks - send to Pepper's office. Consults: orthopedic surgery Significant Diagnostic Studies: Recent Results (from the past 24 hour(s)) CBC W/DIFF AUTOMATED Collection Time: 02/19/20 5:31 AM Result Value Ref Range WBC 8.5 4.5 - 11.0 x10'3/uL RBC 3.56 (L) 4.20 - 5.40 x10'6/uL HGB 11.2 (L) 12.0 - 16.0 G/DL HCT 33.6 (L) 38.0 - 48.0 % MCV 94.4 (H) 80.0 - 94.0 FL MCH 31.5 (H) 27.0 - 31.0 PG MCHC 33.3 32.0 - 36.0 G/DL RDW 13.2 11.5 - 14.5 % PLT 172 130 - 400 x10'3/uL MPV 10.4 9.3 - 12.2 FL DIFFERENTIAL TYPE AUTOMATED DIFFERENTIAL NEUTROPHILS 71.7 % LYMPHOCYTES 12.4 % MONOCYTES 14.7 % EOSINOPHILS 0.4 % BASOPHILS 0.2 % IMMATURE GRANS 0.6 % ABS. NEUTROPHILS TOTAL 6.08 1.80 - 7.70 x10'3/uL ABS. LYMPHOCYTES 1.05 1.00 - 4.80 x10'3/uL ABS. MONOCYTES 1.25 (H) 0.24 - 0.86 x10'3/uL ABS. EOSINOPHILS 0.03 (L) 0.04 - 0.36 x10'3/uL ABS. BASOPHILS 0.02 0.01 - 0.08 x10'3/uL ABS. IMMATURE GRANULOCYTES 0.05 0.00 - 0.49 x10'3/uL BASIC METABOLIC PANEL Collection Time: 02/19/20 5:31 AM Result Value Ref Range GLUCOSE 77 70 - 99 MG/DL BUN 12 7 - 18 MG/DL CREATININE S/P/B 0.63 0.55 - 1.02 MG/DL SODIUM 139 136 - 145 MMOL/L POTASSIUM 4.1 3.5 - 5.1 MMOL/L CHLORIDE S/P/B 110 (H) 100 - 108 MMOL/L CO2 27.3 21 - 32 MMOL/L CALCIUM 8.9 8.5 - 10.1 MG/DL ANION GAP 1.7 (L) 5 - 15 MMOL/L BUN CREATININE RATIO 19.0 6 - 26 eGFR Non-Afr. Amer. >90 >90 ML/MIN/1.73 M2 eGFR Afr. Amer. >90 >90 ML/MIN/1.73 M2 Radiology Reports : XR pelvis (02/16/20): 1. ??Acute subcapital left femoral neck fracture. 2. ??Probable calcified uterine fibroids. ?? XR L hip (02/16/20): Acute subcapital femoral neck fracture. ?? Xr Chest Portable: 02/16/2020 No acute chest disease identified. ? Results for orders placed or performed during the hospital encounter of 02/16/20 ECG 12 lead ?? Narrative ?[facility] ?[address], [place] ?Te st Date: ?2020-02-16 Pat Name: ?DIANE BROWN ?Department: ?Room: ?[id number] Gender: ?Female ?Stock Manager: ?VB : ?1950 ?Requested By: SEGUN PETER Order Number: [id number] ?Reading MD: ?Measurements Intervals ?[place] ? Rate: ?72 ?P: ?81 DC: ?211 ?QRS: ?72 QRSD: ?86 ?T: ?79 QT: ?406 ? QTc: ?445 ?Interpretive Statements SINUS RHYTHM WITH FIRST DEGREE AV BLOCK Compared to ECG 2019 21:09:40 First degree AV block now present Discharge Exam: Filed Vitals: 02/18/20 1117 02/18/20 1429 02/18/20 1924 02/19/20 0353 BP: 132/73 (!) 150/97 132/58 107/67 Pulse: 92 97 94 50 Resp: Temp: 98.6 ??F (37 ??C) 98.8 ??F (37.1 ??C) 98.4 ??F (36.9 ??C) 98.7 ??F (37.1 ??C) TempSrc: Axillary Axillary SpO2: 98% 99% 100% 94% Weight: Height: Physical Exam Constitutional: She is well-developed, well-nourished, and in no distress. Cardiovascular: Normal rate, regular rhythm and normal heart sounds. No murmur heard. Pulmonary/Chest: Effort normal and breath sounds normal. No respiratory distress. She has no wheezes. Abdominal: Soft. She exhibits no distension. There is no tenderness. Musculoskeletal: She exhibits no edema. Neurological: She is alert. Skin: No rash noted. Vitals reviewed. Discharge Medications: Medication List START taking these medications acetaminophen 325 MG tablet Commonly known as: TYLENOL Take 2 tablets (650 mg total) by mouth every 6 (six) hours as needed for Pain. enoxaparin 40 MG/0.4ML Soln Commonly known as: LOVENOX Inject 0.4 mLs (40 mg total) into the skin daily for 29 days. Start taking on: February 20, 2020 CONTINUE taking these medications divalproex DR sprinkle 125 MG capsule Commonly known as: DEPAKOTE SPRINKLE memantine 10 MG tablet Commonly known as: NAMENDA risperiDONE 1 MG tablet Commonly known as: RisperDAL Vitamin D3 50 MCG (1999 UT) Tabs Where to Get Your Medications Information about where to get these medications is not yet available Ask your nurse or doctor about these medications ?? acetaminophen 325 MG tablet ?? enoxaparin 40 MG/0.4ML Soln Disposition: Nursing Home Facility Time Spent on Discharge: Greater than 30 minutes Signed: TRAMAINE GONZALEZ MD documented in this encounter Medications at Time [...] total) by mouth 2 (two) times daily. Cholecalciferol (VITAMIN D3) 50 MCG (1999 UT) Tab Take 1 tablet (2,000 Units total) by mouth daily. risperiDONE 1 MG tablet Take 1 tablet (1 mg total) by mouth 2 (two) times daily. enoxaparin 40 MG/0.4ML Solution Inject 0.4 mLs (40 mg total) into the skin daily for 29 days. 11.6 mL 02/20/2020 03/20/2020 documented as of this encounter Progress Notes * Yarelis Nation, ALIREZA - 02/19/2020 7:00 PM CDT PT WAS DC ON THE TO [facility] HAD BEEN PLANNED. THE NH WAS AWARE OF AND IN AGREEMENT WITH PLANS FOR RETURN ON THE AGAIN CHARTED ON THE . PT'S DTR KG HAD CONFIRMED AGREEMENT WITH ANTICIPATED DC ON THE AT THIS AUTHORS LAST CONVERSATION WITH DTR ON THE . IMM COMPLETED AND CHARTED ON THE . PATIENT WAS WITH ADMIT TO INPT ORDERS OF 02/15. WITH A THREE INPATIENT MIDNIGHT QUALIFYING STAY THE PT IS ELIGIBLE FOR SKILLED STATUS AT THE NURSING FACILITY AND WILL BE CONSIDERED SKILLED CARE UPON ADMIT. WITH TRADITIONAL MEDICARE NO PRIOR AUTH REQUIRED. PT ANTICIPATED TO HAVE TRAVELED BY [facility] BUT SW WAS NOT IN HOUSE AND DID NOT ARRANGE. NO NEW PRESCREEN REQUIRED TO RETURN TO THE NH. SW HAD LEFT NUMBERS TO CALL REPORT AND FAX DC INSTRUCTIONS. RN AWARE OF PLANS AND SW ACTIONS. NO FURTHER NEEDS NOTED. SW COMPLETE AND CASE CLOSED. 02/22/20 1652 Discharge Planning Support Systems Children Type of Residence half-way Assistance Needed Yes Patient expects to be discharged to: Long-Term * Beverly Alston PTA - 02/19/2020 12:16 PM CDT 02/19/20926 Therapy Visit Ordering Provider Ajith Clayton Room 317: pt is non-verbal Reason for admission Left hip fx/Left hemiarthroplasty - anterior precautions Relevant Comorbidities/ Personal Factors to PT dementia,seizure d/o, glaucoma Verified Two Patient Identifiers (checked nameband) Patient consents to therapy Yes Acute Inpatient PT Time Calculation PT Start Time 926 PT Stop Time 936 PT Time Calculation (min) 10 min Precautions Precautions Yes/No Yes Total Hip Replacement ADduction;External rotation;Extension Weight Bearing Status LLE;As tolerated General Precautions Bed Alarm;Chair Alarm;Fall Risk;Low Vision Pain Pain Patient does not offer or c/o pain Activity Tolerance Activity Tolerance Comments Unable to perform bed mobiliyt and transfers due to lack of alertness. Not safe to get up at this time. Cognition Overall Cognitive Status Impaired Following Commands Unable to follow one step directions Exercises Heelslides NO HEELSLIDES Straight Leg Raise NO SLR'S Supine LE Exercise PROM to B LE. Patient resistive to some exercises. Other (Comment) LEFT BETTY ANTERIOR PRECAUTIONS AND LEFT HIP HEP LEFT AT BEDSIDE TO BE SENT TO CT WITH PATIENT Patient/Family Training Exercise Program x Recommendation PT Recommendation PT during Hospitalization;PT at Nursing Home Facility Plan PT Treatments/Interventions Therapeutic Exercises;Therapeutic Activities Progress Slow progress, medical status limitations PT Frequency Other (Comment) (BID M-F AND DAILY SAT/SUN) If this is the last treatment note,it will serve as the discharge summary Yes End of Session Safety End of Session Safety Bed alarm set/activated;Call light within reach;Nursing aware of session * Tiff Tucker RN - 02/19/2020 6:46 AM CDT Patient slept well throughout the night. Does not appear to be in pain. Unable to assist patient tochair d/t her inability to follow commands, and resistance of assistance. * Tiff Tucker RN - 02/19/2020 4:50 AM CDT Problem: Mobility - Impaired Goal: Able to use ambulatory assistive device appropriately Outcome: Not Progressing Goal: Knowledge of need for increased mobility Outcome: Not Progressing Problem: Reduced risk for falls/injury Goal: Reduced Risk for Falls/Injury Outcome: Progressing Goal: Reduced Risk of Confusion (Acute vs Chronic) Outcome: Progressing Goal: Reduced Risk of Symptomatic Depression Outcome: Progressing Goal: Reduced Risk of Altered Elimination Outcome: Progressing Goal: Reduced Risk of Dizziness/Vertigo/Balance Outcome: Progressing Goal: Reduced Risk of Polypharmacy Outcome: Progressing Problem: Discharge Planning Goal: Knowledge of discharge instructions Outcome: Progressing Problem: Pain control/comfort Goal: Promote pain control/comfort Outcome: Progressing Problem: Skin integrity, Impaired-wound Goal: Absence of new skin breakdown Outcome: Progressing Goal: Evidence of wound healing Outcome: Progressing Problem: Skin integrity, Impaired-pressure injury/ulcer Goal: Absence of new skin breakdown Outcome: Progressing Goal: Evidence of pressure injury/ulcer healing Outcome: Progressing Problem: Skin integrity, at risk Goal: Absence of new skin breakdown Outcome: Progressing Problem: Moisture associated skin impairment Goal: Reduce moisture exposure Outcome: Progressing Goal: Evidence of wound healing Outcome: Progressing Goal: Evidence of pressure injury/ulcer healing Outcome: Progressing Goal: Absence of new skin breakdown Outcome: Progressing Problem: Daily Care Goal: Daily care needs are met Description Assess and monitor ability to perform self care and identify potential discharge needs. Outcome: Progressing Problem: Pain Goal: Patient's pain/discomfort is manageable Description Assess and monitor patient's pain using appropriate pain scale. Collaborate with interdisciplinary team and initiate plan and interventions as ordered. Re-assess patient's pain level 30 - 60 minutes after pain management intervention. Outcome: Progressing Problem: Psychosocial Needs Goal: Demonstrates ability to cope with hospitalization/illness Description Assess and monitor patients ability to cope with his/her illness. Outcome: Progressing Goal: Collaborate with patient/family/caregiver to identify patient specific goals for this hospitalization Outcome: Progressing Problem: Discharge Barriers Goal: Patient's discharge needs are met Description Collaborate with interdisciplinary team and initiate plans and interventions as needed. Outcome: Progressing Problem: Discharge Planning Goal: Knowledge of discharge instructions Outcome: Progressing Problem: Bowel Function - Altered Goal: Bowel elimination within specified parameters Outcome: Progressing Problem: Venous Thromboembolism - Risk of Goal: Absence of venous thromboembolism Outcome: Progressing Problem: Infection - Risk of, Surgical Site Infection Goal: Absence of infection signs and symptoms Outcome: Progressing Problem: Pain - Acute Goal: Control of acute pain Outcome: Progressing Problem: Urinary Elimination - Impaired Goal: Urinary elimination within specified parameters Outcome: Progressing * Yarelis Nation LCSW - 02/18/2020 4:26 PM CDT PT'S DTR KG SPOKE WITH THIS AUTHOR THIS DATE AND CONFIRMED PLANS FOR PT TO RETURN TO [facility] UPON DC. PT IS FROM THIS FACILITY. PT CAN RETURN ON THE WEEKEND. CALL ALYSE TO NOTIFY OF DC AT [phone] WITH ADMISSIONS. CALL REPORT TO [phone] AND FAX DC INSTRUCTION TO [phone] AND DTR KG AT [phone]. PT INSURED WITH MEDICARE SUCH THAT WITH HER INS AMB OK FOR EITHER [facility] OR [facility]. PER ROUNDS PT IS LIKELY TO BE READY FOR DC ON THE WEEKEND. VERBAL INFORMATION REGARDING IMPORTANT MESSAGE FROM MEDICARE PROVIDED TO PATIENT MACHINE ENGRAVER SLIM PT IS CONFUSED. . EDUCATION PROVIDED AND DTR VERBALIZED UNDERSTANDING AND GAVE VERBAL PERMISSION TO SIGN THE IMM. COPY PLACED INTO THE CHART FOR SCANNING. COPY LEFT IN THE ROOM FOR DTR TO RECEIVE WHEN SHE VISITED LATER TONIGHT. * Tramaine Gonzalez MD - 02/18/2020 2:23 PM CDT Hospitalist Daily Progress Note Subjective This is a 69-year-old y/o female who presents with Hip fracture (CMS/HCC). Patient somnolent and remains nonverbal. Objective Filed Vitals: 02/18/20 0800 02/18/20 0900 02/18/20 1018 02/18/20 1117 BP: 141/66 132/73 Pulse: 76 92 Resp: 14 21 Temp: 99.4 ??F (37.4 ??C) 99 ??F (37.2 ??C) 98.5 ??F (36.9 ??C) 98.6 ??F (37 ??C) TempSrc: Axillary Axillary SpO2: 98% 98% Weight: Height: Physical Exam: Physical Exam Constitutional: No distress. Thin Cardiovascular: Normal rate and regular rhythm. No murmur heard. Pulmonary/Chest: Effort normal and breath sounds normal. No respiratory distress. She has no wheezes. Abdominal: Soft. She exhibits no distension. There is no tenderness. Musculoskeletal: She exhibits no edema. Neurological: Somnolent Skin: No rash noted. Vitals reviewed. Intake/Output 24H Total: Intake/Output Summary (Last 24 hours) at 02/18/2020 1423 Last data filed at 02/18/2020 0654 Gross per 24 hour Intake 2039 ml Output 1200 ml Net 839 ml Medication ??? divalproex DR sprinkle 125 mg Oral TID ??? famotidine 20 mg Intravenous Daily Or ??? famotidine 20 mg Oral Daily ??? memantine 10 mg Oral BID ??? risperiDONE 1 mg Oral BID ??? tranexamic acid (CYLOKAPRON) IVPB 1,000 mg Intravenous Once ??? 0.9 % NaCl with KCl 20 mEq 75 mL/hr (02/18/20 0543) PRN Meds: acetaminophen, ketorolac, ondansetron Labs: Recent Results (from the past 24 hour(s)) CBC W/DIFF AUTOMATED Collection Time: 02/18/20 9:23 AM Result Value Ref Range WBC 11.6 (H) 4.5 - 11.0 x10'3/uL RBC 3.83 (L) 4.20 - 5.40 x10'6/uL HGB 11.8 (L) 12.0 - 16.0 G/DL HCT 36.8 (L) 38.0 - 48.0 % MCV 96.1 (H) 80.0 - 94.0 FL MCH 30.8 27.0 - 31.0 PG MCHC 32.1 32.0 - 36.0 G/DL RDW 13.2 11.5 - 14.5 % PLT 210 130 - 400 x10'3/uL MPV 10.7 9.3 - 12.2 FL DIFFERENTIAL TYPE AUTOMATED DIFFERENTIAL NEUTROPHILS 81.5 % LYMPHOCYTES 9.1 % MONOCYTES 9.0 % EOSINOPHILS 0.0 % BASOPHILS 0.1 % IMMATURE GRANS 0.3 % ABS. NEUTROPHILS TOTAL 9.44 (H) 1.80 - 7.70 x10'3/uL ABS. LYMPHOCYTES 1.05 1.00 - 4.80 x10'3/uL ABS. MONOCYTES 1.04 (H) 0.24 - 0.86 x10'3/uL ABS. EOSINOPHILS 0.00 (L) 0.04 - 0.36 x10'3/uL ABS. BASOPHILS 0.01 0.01 - 0.08 x10'3/uL ABS. IMMATURE GRANULOCYTES 0.03 0.00 - 0.49 x10'3/uL BASIC METABOLIC PANEL Collection Time: 02/18/20 9:23 AM Result Value Ref Range GLUCOSE 102 (H) 70 - 99 MG/DL BUN 12 7 - 18 MG/DL CREATININE S/P/B 0.90 0.55 - 1.02 MG/DL SODIUM 136 136 - 145 MMOL/L POTASSIUM 4.3 3.5 - 5.1 MMOL/L CHLORIDE S/P/B 109 (H) 100 - 108 MMOL/L CO2 22.0 21 - 32 MMOL/L CALCIUM 9.1 8.5 - 10.1 MG/DL ANION GAP 5.0 5 - 15 MMOL/L BUN CREATININE RATIO 13.4 6 - 26 eGFR Non-Afr. Amer. 66 (L) >90 ML/MIN/1.73 M2 eGFR Afr. Amer. 76 (L) >90 ML/MIN/1.73 M2 X-Ray?? XR pelvis (02/16/20): 1. ??Acute subcapital left femoral neck fracture. 2. ??Probable calcified uterine fibroids. ?? XR L hip (02/16/20): Acute subcapital femoral neck fracture. Xr Chest Portable: 02/16/2020 No acute chest disease identified. ? Results for orders placed or performed during the hospital encounter of 02/16/20 ECG 12 lead ?? Narrative ?? [facility] [place] [address] [facility] Test Date: 2020-02-16 Pat Name: DIANE KLINE Department: Room: [id number] Gender: Female Stock Manager: FIOR : 1950 Requested By: SEGUN DEVINE Order Number: [id number] Reading MD: Measurements Intervals [place] Rate: 72 P: 81 DC: 211 QRS: 72 QRSD: 86 T: 79 QT: 406 QTc: 445 Interpretive Statements SINUS RHYTHM WITH FIRST DEGREE AV BLOCK Compared to ECG 2019 21:09:40 First degree AV block now present ?? Assessment/Plan: Hip fracture: XR with acute L subcapital femoral neck fracture. Patient admitted to the medical floor Orthopedic surgery consulted Pain control - monitor for toxicity with IV pain meds. S/p L hip hemiarthroplasty 02/16 IV fluids as minimal po intake. Dementia: Cont home medication Patient nonverbal at baseline Depakote is taken for behavioral issues. NO history of seizure disorder. Underweight BMI 18.01 Normal albumin Encourage increased caloric and protein intake for healing. Consult dietitian for recs. ?? DVT Prophylaxis Lovenox for DVT ppx. TRAMAINE GONZALEZ MD 02/18/2020 2:23 PM * Mary Herrera, PT - 02/18/2020 2:16 PM CDT 02/18/20 1400 Therapy Visit Ordering Provider Ajith PT Received On 02/17/20 Treatment Day 1 Subjective Room 317: pt is non-verbal Reason for admission Left hip fx/Left hemiarthroplasty - anterior precautions Relevant Comorbidities/ Personal Factors to PT dementia,seizure d/o, glaucoma Verified Two Patient Identifiers (checked nameband) Patient consents to therapy Yes Acute Inpatient PT Time Calculation PT Start Time 1347 PT Stop Time 1405 PT Time Calculation (min) 18 min Precautions Precautions Yes/No Yes Total Hip Replacement ADduction;External rotation;Extension Weight Bearing Status LLE;As tolerated General Precautions Bed Alarm;Chair Alarm;Fall Risk;Low Vision Skin Integrity left hip incision/dressing Home Living Type of Home Other (Comment) ([facility]) Prior Function Fall History Yes Most recent fall PRIOR TO ADMISSION Receives Help From Facility staff Pain Pain Patient does not offer or c/o pain Cognition Overall Cognitive Status Impaired Following Commands Unable to follow one step directions Overall Extremity Assessment Lower Extremity Comment pt did not move either le actively. Bed Mobility Supine to Sit Max assist to right;Assist of 2 Other (Comment) sitting balance fair- to fair once adjusted to EOB TRANSFERS Sit to Stand Max assist;Assist of 2 Bed to Chair Max assist;Assist of 2 Balance Sitting - Static CGA Sitting - Dynamic CGA Standing - Static Max Assist;Assist of 2 Persons Standing - Dynamic Max Assist;Assist of 2 Persons Exercises Ankle Pumps X Quad Sets X Heelslides NO HEELSLIDES Straight Leg Raise NO SLR'S Glut Sets X Hip Abduction X Sitting LE Exercise X Other (Comment) LEFT BETTY ANTERIOR PRECAUTIONS AND LEFT HIP HEP LEFT AT BEDSIDE TO BE SENT TO NH WITH PATIENT Patient/Family Training Bed Mobility X Transfer Training X Precautions X Other (Comment) HEP GIVEN Assessment Personal Factors/Comorbidities Impacting Care 3-4 personal factors/comorbidities Examination of Body Systems High (at least 4 Elements) Objectives of Body Systems Impaired bed mobility;Impaired transfers;Impaired ambulation;Decreased ADL status;Decreased LE ROM;Decreased LE strength;Decreased cognition;Decreased endurance Clinical Presentation of Patient Evolving and changing characteristics Complexity Level of Evaluation Moderate Prognosis Fair PT Assess/Eval Other (Comment) This is a 69 yo female with left hip fx who underwent left anterior hemiarthroplasty. PT to see for left hip ex's, precautions and transfer trg wbat left le. Recommendation PT Recommendation PT during Hospitalization;PT at Nursing Home Facility Plan PT Treatments/Interventions Therapeutic Exercises;Therapeutic Activities Progress Slow progress, medical status limitations PT Frequency Other (Comment) (BID M-F AND DAILY SAT/SUN) PT plan for next session EX LEFT HIP, BED MOB, TRANSFERS If this is the last treatment note,it will serve as the discharge summary Yes End of Session Safety End of Session Safety Chair alarm set/activated;Call light within reach;Nursing aware of session * Garfield Pepper MD - 02/18/2020 7:10 AM CDT Orthopedic Progress Note History No acute events Physical Exam Alert, oriented LLE - mild swelling, thigh soft, dressing dry, moves foot up and down Assessment [id number] s/p L hip hemiarthroplasty on 02/16/2020 Plan PT - WBAT, anterior hip precautions DVT ppx - lovenox or aspirin for 30 days Pain control - scheduled tylenol, avoid opioids Dispo - per primary Dressing changes as needed. If the wound is dry after a week, okay to leave it uncovered and showeror bathe. She needs to have an x-ray done of the hip at 6 weeks postoperative and have it sent to our office. She does not need to come to our office in person for follow-up, given the difficulty of transporting the patient. [facility], [address] [address] GARFIELD PEPPER MD Filed Vitals: 02/17/20 2200 02/17/20 2337 02/18/20 0430 02/18/20 06 BP: 137/66 136/72 135/76 Pulse: 82 84 120 Resp: 20 16 24 Temp: 101.5 ??F (38.6 ??C) 99.7 ??F (37.6 ??C) TempSrc: Oral Oral SpO2: 99% 99% 99% Weight: Height: ??? divalproex DR sprinkle 125 mg Oral TID ??? famotidine 20 mg Intravenous Daily Or ??? famotidine 20 mg Oral Daily ??? memantine 10 mg Oral BID ??? risperiDONE 1 mg Oral BID ??? tranexamic acid (CYLOKAPRON) IVPB 1,000 mg Intravenous Once ??? 0.9 % NaCl with KCl 20 mEq 75 mL/hr (02/18/20 0543) acetaminophen, ketorolac, ondansetron Recent Labs Lab 02/16/20 2053 02/17/20 0440 WBC 13.8* 11.5* RBC 4.13* 3.86* HGB 12.8 11.8* HCT 39.0 35.9* MCV 94.4* 93.0 MCH 31.0 30.6 MCHC 32.8 32.9 PLT 249 239 RDW 12.7 12.8 MPV 10.3 10.0 PERNEU 86.5 82.3 PERLYM 5.3 6.6 PERMON 7.5 10.6 LYMC 0.73* 0.76* MONOC 1.03* 1.21* EOSC 0.01* 0.00* BASOC 0.02 0.02 DTYPE AUTOMATED DIFFERENTIAL AUTOMATED DIFFERENTIAL Recent Labs Lab 02/16/20205202/17/20 0440 NA 139 137 K 4.0 3.9 CL 107 107 CO2 26.0 23.7 AGAP 6.0 6.3 BUN 14 14 CR 0.82 0.83 BUNCREATININ 17.0 16.9 GFRNON 74* 72* GFR 85* 84* GLU 146* 143* CA 9.6 9.5 TP 7.6 -- ALB 3.9 -- TBIL 0.4 -- ALKP 88 -- AST 24 -- ALT 18 -- Recent Labs Lab 02/16/20205202/17/20 0440 INR 1.0 1.0 PTT 20.5* -- * Misti Barger RN - 02/18/2020 2:44 AM CDT Problem: Reduced risk for falls/injury Goal: Reduced Risk for Falls/Injury Outcome: Progressing Goal: Reduced Risk of Confusion (Acute vs Chronic) Outcome: Not Progressing Note: Patient responsive to voice. Flat affect this shift. Goal: Reduced Risk of Symptomatic Depression Outcome: Progressing Goal: Reduced Risk of Altered Elimination Outcome: Progressing Goal: Reduced Risk of Dizziness/Vertigo/Balance Outcome: Progressing Goal: Reduced Risk of Polypharmacy Outcome: Progressing Problem: Pain control/comfort Goal: Promote pain control/comfort Outcome: Progressing Note: Patient's left hip pain managed this shift without pain medication. Patient did not grimace when turning and readjusting for comfort and slept most of shift. Problem: Psychosocial Needs Goal: Demonstrates ability to cope with hospitalization/illness Description Assess and monitor patients ability to cope with his/her illness. Outcome: Progressing Goal: Collaborate with patient/family/caregiver to identify patient specific goals for this hospitalization Outcome: Progressing Note: Updated patient's daughter, Kg 02/17/20 at 2200. Kg stated she would be visiting in the morning. Problem: Bowel Function - Altered Goal: Bowel elimination within specified parameters Outcome: Progressing Note: Patient did not have a bowel movement this shift. Problem: Discharge Planning Goal: Knowledge of discharge instructions Outcome: Progressing Problem: Venous Thromboembolism - Risk of Goal: Absence of venous thromboembolism Outcome: Progressing Note: SCDs applied bilaterally to lower extremities for DVT prophylaxis while in bed during shift. Problem: Infection - Risk of, Surgical Site Infection Goal: Absence of infection signs and symptoms Outcome: Progressing Note: Dressing remained clean, dry, and intact during shift. ROENTGENOLOGIST notified this RN that patient had a 101.5 temperature. Physician notified. Tylenol administered. Temperature dropped to 99.7. Day shift RN updated. Problem: Urinary Elimination - Impaired Goal: Urinary elimination within specified parameters Outcome: Progressing Note: Frazier remained in place this shift. * Honey Metcalf RN - 02/17/2020 6:55 PM CDT Problem: Reduced risk for falls/injury Goal: Reduced Risk for Falls/Injury Outcome: Not Progressing Informed by [facility] that patient can be impulsive. Patient at risk for falls related to confusion, medications, weakness and unfamiliar environment. Pt drowsy this shift, so this has not been an issue... Call light within reach, bed alarm armed, non-skid socks applied and rounded on hourly. 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 Patient is withdrawn and will not engage with nurse. She will only pull away when stuck for blood. Problem: Discharge Planning Goal: Knowledge of discharge instructions Outcome: Progressing Planning to send back to [facility] at [place] Problem: Pain control/comfort Goal: Promote pain control/comfort Outcome: Progressing Patient appears to be resting comfortably this shift. Dr. Gonzalez notified that patient clenches herjaw shut and will not swallow food or pills. SBP has risen to the 160's. Patient's daughter, Kg, is requesting IVP toradol if needed. Dr. Gonzalez has agreed to this. HONEY METCALF RN * Yarelis Nation LCSW - 02/17/2020 4:18 PM CDT PT IS A 69 YR OLD FEMALE ADMITTED FROM [facility] WHERE SHE IS REPORTED TO BE A LONG TERMRESIDENT. PT IS AT BASELINE CONFUSED PER THE NURSING TEAM. PT IS TO SURGERY TODAY FOR A HIP FRACTURE. PT IS UNABLE TO PROVIDE INFORMATION BUT SW WILL FOLLOW UP WITH HER DTR MARISELA KLINE TOMORROW FOLLOWING SURGERY TO CONFIRM INFORMATION OBTAINED FROM STAFF AND REGARDING PLANS FOR RETURN TO THE [facility] UPON DC. 02/17/20 1616 Referral Data Referral Reason Discharge Planning Source of Information Chart review (STAFF) Patient Information Primary Caregiver (CT STAFF) Support System Immediate family Baseline ADL's Functional Status Minimum assistance;Moderate assistance Type of Residence half-way Ambulation Assistance Yes Bathing/Grooming Assistance Yes Dressing Assistance Yes Behavior Confused Socioeconomic Needs Caregiver Needed Yes At Risk of Abuse or Neglect No Adequate Resources Yes Psychological Needs: Mental health concerns No Suspected Drug or Alcohol Abuse No Inappropriate Patient/Family Behaviors No Difficult Adjustment to Diagnosis No Anticipated Discharge Needs Change in Living Arrangements No In-Home Care or Equipment No Vocational and/or Role Loss No Inability to Complete ADL's Yes Anticipated DC Plan Support Systems Children Type of Residence half-way Assistance Needed Yes Patient expects to be discharged to: Long-Term * Tramaine Gonzalez MD - 02/17/2020 11:54 AM CDT Hospitalist Daily Progress Note Subjective This is a 69-year-old y/o female who presents with Hip fracture (CMS/HCC). Patient nonverbal and somnolent during my exam. No acute issues per nursing staff. Objective Filed Vitals: 02/16/20203302/16/20203402/16/20 2300 02/17/20 0442 BP: 118/69 (!) 127/91 124/88 Pulse: 75 77 76 Resp: 18 18 28 Temp: 98.1 ??F (36.7 ??C) 97.5 ??F (36.4 ??C) 97.2 ??F (36.2 ??C) TempSrc: Axillary Oral Oral SpO2: 100% 100% 100% Weight: 48.8 kg (107 lb 9.4 oz) 47.6 kg (104 lb 15 oz) Height: 5' 4 (1.626 m) 5' 4 (1.626 m) Physical Exam: Physical Exam Constitutional: No distress. Thin Cardiovascular: Normal rate and regular rhythm. No murmur heard. Pulmonary/Chest: Effort normal and breath sounds normal. No respiratory distress. She has no wheezes. Abdominal: Soft. She exhibits no distension. There is no tenderness. Musculoskeletal: She exhibits no edema. Neurological: She is alert. Skin: No rash noted. Vitals reviewed. Intake/Output 24H Total: Intake/Output Summary (Last 24 hours) at 02/17/2020 1154 Last data filed at 02/17/2020 0442 Gross per 24 hour Intake 500 ml Output 400 ml Net 100 ml Medication ??? ceFAZolin 2 g Intravenous Once ??? divalproex DR sprtonyle 125 mg Oral TID ??? famotidine 20 mg Intravenous Daily Or ??? famotidine 20 mg Oral Daily ??? memantine 10 mg Oral BID ??? risperiDONE 1 mg Oral BID ??? tranexamic acid (CYLOKAPRON) IVPB 1,000 mg Intravenous Once PRN Meds: acetaminophen, ondansetron Labs: Recent Results (from the past 24 hour(s)) COMPREHENSIVE METABOLIC PANEL Collection Time: 02/16/20 8:53 PM Result Value Ref Range GLUCOSE 146 (H) 70 - 99 MG/DL BUN 14 7 - 18 MG/DL CREATININE S/P/B 0.82 0.55 - 1.02 MG/DL SODIUM 139 136 - 145 MMOL/L POTASSIUM 4.0 3.5 - 5.1 MMOL/L CHLORIDE S/P/B 107 100 - 108 MMOL/L CO2 26.0 21 - 32 MMOL/L CALCIUM 9.6 8.5 - 10.1 MG/DL BILIRUBIN TOTAL S/P/B 0.4 0.2 - 1.2 MG/DL TOTAL PROTEIN S/P/B 7.6 6.4 - 8.2 G/DL ALBUMIN S/P/B 3.9 3.4 - 5.0 G/DL AST 24 15 - 37 U/L ALT 18 14 - 55 U/L ALKALINE PHOSPHATASE S/P/B 88 50 - 136 U/L ANION GAP 6.0 5 - 15 MMOL/L BUN CREATININE RATIO 17.0 6 - 26 A/G RATIO 1.1 1.0 - 2.0 RATIO eGFR Non-Afr. Amer. 74 (L) >90 ML/MIN/1.73 M2 eGFR Afr. Amer. 85 (L) >90 ML/MIN/1.73 M2 CBC W/DIFF AUTOMATED Collection Time: 02/16/20 8:53 PM Result Value Ref Range WBC 13.8 (H) 4.5 - 11.0 x10'3/uL RBC 4.13 (L) 4.20 - 5.40 x10'6/uL HGB 12.8 12.0 - 16.0 G/DL HCT 39.0 38.0 - 48.0 % MCV 94.4 (H) 80.0 - 94.0 FL MCH 31.0 27.0 - 31.0 PG MCHC 32.8 32.0 - 36.0 G/DL RDW 12.7 11.5 - 14.5 % PLT 249 130 - 400 x10'3/uL MPV 10.3 9.3 - 12.2 FL DIFFERENTIAL TYPE AUTOMATED DIFFERENTIAL NEUTROPHILS 86.5 % LYMPHOCYTES 5.3 % MONOCYTES 7.5 % EOSINOPHILS 0.1 % BASOPHILS 0.1 % IMMATURE GRANS 0.5 % ABS. NEUTROPHILS TOTAL 11.93 (H) 1.80 - 7.70 x10'3/uL ABS. LYMPHOCYTES 0.73 (L) 1.00 - 4.80 x10'3/uL ABS. MONOCYTES 1.03 (H) 0.24 - 0.86 x10'3/uL ABS. EOSINOPHILS 0.01 (L) 0.04 - 0.36 x10'3/uL ABS. BASOPHILS 0.02 0.01 - 0.08 x10'3/uL ABS. IMMATURE GRANULOCYTES 0.07 0.00 - 0.49 x10'3/uL PROTIME/INR, VENOUS Collection Time: 02/16/20 8:53 PM Result Value Ref Range Protime 11.3 9.6 - 12.2 SEC INR 1.0 PARTIAL THROMBOPLASTIN TIME,PTT Collection Time: 02/16/20 8:53 PM Result Value Ref Range PTT 20.5 (L) 25.5 - 37.6 SEC CBC W/DIFF AUTOMATED Collection Time: 02/17/20 4:40 AM Result Value Ref Range WBC 11.5 (H) 4.5 - 11.0 x10'3/uL RBC 3.86 (L) 4.20 - 5.40 x10'6/uL HGB 11.8 (L) 12.0 - 16.0 G/DL HCT 35.9 (L) 38.0 - 48.0 % MCV 93.0 80.0 - 94.0 FL MCH 30.6 27.0 - 31.0 PG MCHC 32.9 32.0 - 36.0 G/DL RDW 12.8 11.5 - 14.5 % PLT 239 130 - 400 x10'3/uL MPV 10.0 9.3 - 12.2 FL DIFFERENTIAL TYPE AUTOMATED DIFFERENTIAL NEUTROPHILS 82.3 % LYMPHOCYTES 6.6 % MONOCYTES 10.6 % EOSINOPHILS 0.0 % BASOPHILS 0.2 % IMMATURE GRANS 0.3 % ABS. NEUTROPHILS TOTAL 9.43 (H) 1.80 - 7.70 x10'3/uL ABS. LYMPHOCYTES 0.76 (L) 1.00 - 4.80 x10'3/uL ABS. MONOCYTES 1.21 (H) 0.24 - 0.86 x10'3/uL ABS. EOSINOPHILS 0.00 (L) 0.04 - 0.36 x10'3/uL ABS. BASOPHILS 0.02 0.01 - 0.08 x10'3/uL ABS. IMMATURE GRANULOCYTES 0.04 0.00 - 0.49 x10'3/uL PROTHROMBIN TIME, VENOUS Collection Time: 02/17/20 4:40 AM Result Value Ref Range Protime 11.2 9.6 - 12.2 SEC INR 1.0 MAGNESIUM Collection Time: 02/17/20 4:40 AM Result Value Ref Range MAGNESIUM 1.8 1.8 - 2.4 MG/DL BASIC METABOLIC PANEL Collection Time: 02/17/20 4:40 AM Result Value Ref Range GLUCOSE 143 (H) 70 - 99 MG/DL BUN 14 7 - 18 MG/DL CREATININE S/P/B 0.83 0.55 - 1.02 MG/DL SODIUM 137 136 - 145 MMOL/L POTASSIUM 3.9 3.5 - 5.1 MMOL/L CHLORIDE S/P/B 107 100 - 108 MMOL/L CO2 23.7 21 - 32 MMOL/L CALCIUM 9.5 8.5 - 10.1 MG/DL ANION GAP 6.3 5 - 15 MMOL/L BUN CREATININE RATIO 16.9 6 - 26 eGFR Non-Afr. Amer. 72 (L) >90 ML/MIN/1.73 M2 eGFR Afr. Amer. 84 (L) >90 ML/MIN/1.73 M2 TYPE & SCREEN Collection Time: 02/17/20 7:33 AM Result Value Ref Range ABO/RH B POSITIVE ANTIBODY SCREEN NEGATIVE SAMPLE EXPIRATION: 02/20/2020,2359 X-Ray?? XR pelvis (02/16/20): 1. ??Acute subcapital left femoral neck fracture. 2. ??Probable calcified uterine fibroids. ?? XR L hip (02/16/20): Acute subcapital femoral neck fracture. Xr Chest Portable: 02/16/2020 No acute chest disease identified. ? Results for orders placed or performed during the hospital encounter of 02/16/20 ECG 12 lead ?? Narrative ?? [place] Test Date: 2020-02-16 Pat Name: DIANE KLINE Department: Room: [place] [address] Gender: Female Stock Manager: FIOR : 1950 Requested By: SEGUN DEVINE Order Number: [id number] Reading MD: Measurements Intervals [place] Rate: 72 P: 81 DC: 211 QRS: 72 QRSD: 86 T: 79 QT: 406 QTc: 445 Interpretive Statements SINUS RHYTHM WITH FIRST DEGREE AV BLOCK Compared to ECG 2019 21:09:40 First degree AV block now present ?? Assessment/Plan: Hip fracture: XR with acute L subcapital femoral neck fracture. Patient admitted to the medical floor Orthopedic surgery consulted IV fluids as NPO. Pain control Plan for L hip hemiarthroplasty today. Per NSQIP, risk of serious complication is 5.6% which is below average. Dementia: Cont home medication Patient nonverbal at baseline Depakote is taken for behavioral issues. NO history of seizure disorder. Underweight BMI 18.01 Normal albumin Encourage increased caloric and protein intake for healing. Consult dietitian for recs. ?? DVT Prophylaxis Initiate pharmacological DVT prophylaxis when okay with surgery TRAMAINE GONZALEZ MD 02/17/2020 11:54 AM * Misti Barger RN - 02/17/2020 5:51 AM CDT Problem: Reduced risk for falls/injury Goal: Reduced Risk for Falls/Injury Outcome: Progressing Goal: Reduced Risk of Confusion (Acute vs Chronic) Outcome: Progressing Goal: Reduced Risk of Symptomatic Depression Outcome: Progressing Goal: Reduced Risk of Altered Elimination Outcome: Progressing Goal: Reduced Risk of Dizziness/Vertigo/Balance Outcome: Progressing Goal: Reduced Risk of Polypharmacy Outcome: Progressing Problem: Discharge Planning Goal: Knowledge of discharge instructions Outcome: Progressing Problem: Pain control/comfort Goal: Promote pain control/comfort Outcome: Progressing Note: Patient exhibited nonverbal expressions of pain this shift. Tylenol administered. Patient slept through rest of shift. Problem: Skin integrity, Impaired-wound Goal: Absence of new skin breakdown Outcome: Progressing Goal: Evidence of wound healing Outcome: Progressing Problem: Daily Care Goal: Daily care needs are met Description Assess and monitor ability to perform self care and identify potential discharge needs. Outcome: Progressing Problem: Psychosocial Needs Goal: Demonstrates ability to cope with hospitalization/illness Description Assess and monitor patients ability to cope with his/her illness. Outcome: Progressing Goal: Collaborate with patient/family/caregiver to identify patient specific goals for this hospitalization Outcome: Progressing Note: Patient's daughter Kg updated 2311 02/16/2020 via phone call. Kg states that she will be visiting the morning of 02/17/2020. Problem: Urinary Elimination - Impaired Goal: Urinary elimination within specified parameters Outcome: Progressing Note: Patient on bed rest due to left hip fracture. Patient experienced decreased urine production. Bladder scan revealed >428 mL in bladder. Physician notified. 16 Azeri Frazier inserted this shift. documented in this encounter H&P Notes * Asha Eckert MD - 02/16/2020 9:46 PM CDT Hospitalist History and Physical Patient: Diane Kline Date: 02/16/2020 female, 69-year-old Admit Date: 02/16/2020 Attending: Asha Eckert MD REASON FOR ADMISSION: Hip Fracture HISTORY OF PRESENT ILLNESS: Diane Kline is a 69-year-old female With past medical history significant for dementia, seizuredisorder, glaucoma, patient is nonverbal at baseline, patient presenting from nursing facility where patient is at the memory unit, per ER note patient was getting dressed and had both legs and pantsand she stood up and fell landed on her left side, x-ray was obtained and showed left hip fracture so patient was transferred to our facility, in the ER patient was evaluated, Ortho were consulted and patient get admitted for further evaluation and treatment. Allergy No Known Allergies Medication list (Not in a hospital admission) No current facility-administered medications on file prior to encounter. Current Outpatient Medications on File Prior to Encounter Medication Sig Dispense Refill ??? Cholecalciferol (VITAMIN D3) 50 MCG (1999 UT) Tab Take 2,000 Units by mouth daily. ??? divalproex DR sprinkle 125 MG capsule Take 125 mg by mouth 3 (three) times a day. ??? memantine 10 MG tablet Take 10 mg by mouth 2 (two) times daily. ??? risperiDONE 1 MG tablet Take 1 mg by mouth 2 (two) times daily. Past Medical History Past Medical History: Diagnosis Date ??? Cataract ??? Dementia (CMS/HCC) ??? Glaucoma ??? Seizures (CMS/HCC) No past surgical history on file. Social History Social History Socioeconomic History ??? Marital status: Single Spouse name: Not on file ??? Number of children: Not on file ??? Years of education: Not on file ??? Highest education level: Not on file Occupational History ??? Not on file Social Needs ??? Financial resource strain: Not on file ??? Food insecurity: Worry: Not on file Inability: Not on file ??? Transportation needs: Medical: Not on file Non-medical: Not on file Tobacco Use ??? Smoking status: Former Smoker Types: Cigarettes ??? Smokeless tobacco: Never Used Substance and Sexual Activity ??? Alcohol use: No Frequency: Never ??? Drug use: No ??? Sexual activity: Not on file Lifestyle ??? Physical activity: Days per week: Not on file Minutes per session: Not on file ??? Stress: Not on file Relationships ??? Social connections: Talks on phone: Not on file Gets together: Not on file Attends mormonism service: Not on file Active member of club or organization: Not on file Attends meetings of clubs or organizations: Not on file Relationship status: Not on file ??? Intimate partner violence: Fear of current or ex partner: Not on file Emotionally abused: Not on file Physically abused: Not on file Forced sexual activity: Not on file Other Topics Concern ??? Not on file Social History Narrative ??? Not on file Family History Unable to obtain REVIEW OF SYSTEMS: Unable to obtain PHYSICAL EXAMINATION: Vital 24 Hour Range Most Recent Value Temperature Temp Min: 98.1 ??F (36.7 ??C) Max: 98.1 ??F (36.7 ??C) 98.1 ??F (36.7 ??C) Pulse Pulse Min: 75 Max: 75 75 Respiratory Resp Min: 18 Max: 18 18 Blood Pressure BP Min: 118/69 Max: 118/69 118/69 Pulse Oximetry SpO2 Min: 100 % Max: 100 % 100 % O2 No data recorded Vital Most Recent Value First Value Weight 48.8 kg (107 lb 9.4 oz) Weight: 48.8 kg (107 lb 9.4 oz) Height 5' 4 (162.6 cm) Height: 5' 4 (162.6 cm) BMI 18.5 N/A Physical Exam: -GENERAL: No acute distress, breathing comfortably on room air, patient nonverbal. -EYES: Extraocular movements intact -ENT: Neck supple, Septum is midline. -LUNG: Clear to auscultation bilaterally, No wheezes, No crackles -CVS: Regular rate rhythm, S1 and S2 normal, No murmurs, -ABDOMEN: Soft, nondistended, Nontender, Bowel sounds observed -EXT: no lower Ext edema. -NEURO: Alert, awake, limited exam -SKIN: Skin color, texture, turgor normal. No rashes or lesions Intake/Output last 3 shifts: No intake/output data recorded. Labs: No results for input(s): NA, K, CL, CO2, AGAP, BUN, CR, BUNCREATININ, GFRNON, GFR, GLU, CA, MAGNESIUM, PHOS in the last 168 hours. Recent Labs Lab 02/16/202052 WBC 13.8* RBC 4.13* HGB 12.8 HCT 39.0 MCV 94.4* MCH 31.0 MCHC 32.8 PLT 249 RDW 12.7 MPV 10.3 No results for input(s): AST, ALT in the last 168 hours. Invalid input(s): TOTALBILLIRUBIN, ALK No results for input(s): INR, PTT in the last 168 hours. Invalid input(s): ABG arterial blood gases No results for input(s): TROP, TROPIWB, CPK in the last 168 hours. Invalid input(s): CK-MB No results for input(s): PH, PCO2, PO2, [id number], BICARBWB, BASEDEFICIT, BASEEXCESS in the [id number] hours. Imagining & Other Studies Xr Chest Portable Result Date: 02/16/2020 IMPRESSION: No acute chest disease identified. Results for orders placed or performed during the hospital encounter of 02/16/20 ECG 12 lead Narrative [address] Test Date: 2020-02-16 Pat Name: DIANE KLINE Department: Room: [place] [address] Gender: Female Stock Manager: FIOR : 1950 Requested By: SEGUN DEVINE Order Number: [id number] Reading MD: Measurements Intervals [place] Rate: 72 P: 81 DC: 211 QRS: 72 QRSD: 86 T: 79 QT: 406 QTc: 445 Interpretive Statements SINUS RHYTHM WITH FIRST DEGREE AV BLOCK Compared to ECG 2019 21:09:40 First degree AV block now present Assessment & Plan Hip fracture: Patient admitted to the medical floor Orthopedic surgery consulted Pain control Initiate pharmacological DVT prophylaxis when okay with surgery Dementia: Resume home medication Patient nonverbal at baseline Seizure disorder: Resume home medication Asha Eckert MD 02/16/2020 9:45 PM documented in this encounter Consult Notes * Ana Shepherd RD - 02/18/2020 11:02 AM CDTAssociated Order(s): IP CONSULT TO NUTRITION SERVICES A: PT SEEN FOR EARLY F/U WITH CONSULT FOR POOR INTAKE. FULL NUTRITION ASSESSMENT WAS COMPLETED ON 02/17/20. GOALS MET FOR INTAKE > 50%. NO DATA ON TAKING GLUCERNA. PT WAS FED BREAKFAST WITH MOST OFPOTATOES AND EGGS EATEN. PT WITH SKIN SCORE 12, HAS L HIP SURGICAL SITE. REVIEWED LABS AND MEDICATIONS. D: CONTINUE WITH PREVIOUS PES. I: GOALS: RECOMMEND CONTINUING WITH REGULAR DIET, WILL INCREASE GLUCERNA SUPPLEMENT TO TID. M/E; PT AT HIGH NUTRITION RISK. F/U 02/23/20. GOALS: INTAKE > 60%, TAKING GLUCERNA DAILY. * Ana Shepherd RD - 02/17/2020 7:17 AM CDT A: CHART REVIEWED FOR LOW BMI. PT NPO FOR HIP FX REPAIR. PT WITH HX OF DEMENTIA. EST. CALORIE NEEDS: 1293 RUTHIE(MSJX1.3 ) + 500 RUTHIE = 1793 RUTHIE TO SUPPORT DESIRED WEIGHT GAIN. EST. PROTEIN NEEDS; 71 GM PROTEIN ( 1.5 GM PRO/KG) REVIEWED LABS AND MEDICATIONS. D; PES=UNDERWEIGHT RT INADEQUATE ENERGY INTAKE AEB BMI OF 18. I: GOALS: RECOMMEND OFFERING GLUCERNA SUPPLEMENT BID ONCE DIET ADVANCED. M/E;PT AT HIGH NUTRITION RISK. F/U 02/22/20. GOALS: INTAKE > 60%, TAKING GLUCERNA DAILY. * Garfield Pepper MD - 02/17/2020 7:08 AM CDTAssociated Order(s): IP CONSULT TO ORTHOPEDIC SURGERY Orthopedic Consult CC: Hip fracture HPI: She was admitted yesterday for a left femoral neck fracture. She lives in a retirement. History is obtained from her daughter, Kg. Patient has dementia and is nonverbal. She is able to walk and, in fact, they have had trouble getting her to stop walking. This is improved somewhat as she has been transition to a memory care unit. She fell yesterday while at the retirement. Past Medical History: Diagnosis Date ??? Atherosclerosis BLE ??? Blind ??? Cataract ??? Dementia (CMS/HCC) ??? Ex-smoker ??? Falls ??? Glaucoma ??? Hallucinations ??? Nonverbal ??? Seizures (CMS/HCC) ??? Vitamin D deficiency ??? Wandering History reviewed. No pertinent surgical history. No family history on file. Social History Socioeconomic History ??? Marital status: Single Spouse name: Not on file ??? Number of children: Not on file ??? Years of education: Not on file ??? Highest education level: Not on file Occupational History ??? Not on file Social Needs ??? Financial resource strain: Not on file ??? Food insecurity: Worry: Not on file Inability: Not on file ??? Transportation needs: Medical: Not on file Non-medical: Not on file Tobacco Use ??? Smoking status: Former Smoker Types: Cigarettes ??? Smokeless tobacco: Never Used Substance and Sexual Activity ??? Alcohol use: No Frequency: Never ??? Drug use: No ??? Sexual activity: Not Currently Lifestyle ??? Physical activity: Days per week: Not on file Minutes per session: Not on file ??? Stress: Not on file Relationships ??? Social connections: Talks on phone: Not on file Gets together: Not on file Attends mormonism service: Not on file Active member of club or organization: Not on file Attends meetings of clubs or organizations: Not on file Relationship status: Not on file ??? Intimate partner violence: Fear of current or ex partner: Not on file Emotionally abused: Not on file Physically abused: Not on file Forced sexual activity: Not on file Other Topics Concern ??? Not on file Social History Narrative ??? Not on file No current facility-administered medications on file prior to encounter. Current Outpatient Medications on File Prior to Encounter Medication Sig ??? Cholecalciferol (VITAMIN D3) 50 MCG (2000 UT) Tab Take 2,000 Units by mouth daily. ??? divalproex DR sprinkle 125 MG capsule Take 125 mg by mouth 3 (three) times a day. ??? memantine 10 MG tablet Take 10 mg by mouth 2 (two) times daily. ??? risperiDONE 1 MG tablet Take 1 mg by mouth 2 (two) times daily. No Known Allergies Physical Exam: Filed Vitals: 02/16/20 2034 02/16/20 2035 02/16/20 2300 02/17/20 0442 BP: 118/69 (!) 127/91 124/88 Pulse: 75 77 76 Resp: 18 28 Temp: 98.1 ??F (36.7 ??C) 97.5 ??F (36.4 ??C) 97.2 ??F (36.2 ??C) TempSrc: Axillary Oral Oral SpO2: 100% 100% 100% Weight: 48.8 kg (107 lb 9.4 oz) 47.6 kg (104 lb 15 oz) Height: 5' 4 (1.626 m) 5' 4 (1.626 m) The patient is very sleepy today and I am not able to get her to open her eyes. Left lower extremity exam-palpable dorsalis pedis pulse. When I logroll the left lower extremity she winces in pain. IMAGING: X-rays show a displaced left femoral neck fracture ASSESSMENT: Left femoral neck fracture PLAN: Left hip hemiarthroplasty. I talked with the patient's daughter about the diagnosis and treatment plan. Since the patient doeswalk normally and seems to be having pain on exam, surgical treatment is warranted. I talked with her daughter about the risks of surgery but also the problems with nonoperative treatment. I believe the risks of surgery are outweighed by the benefits. The patient's daughter agrees. Plan for surgerylater today as long as the patient is deemed medically stable. Risks include anesthetic risk, blood loss, fracture, need for further surgery, dislocation, difficulty mobilizing, DVT, infection, other problems. documented in this encounter Nursing Notes * Peg Woods RN - 02/17/2020 4:07 PM CDT 1600 MULTIPLE ATTEMPTS TO REACH DAUGHTER BY MYSELF AND DR. PEPPER FAILED. IN REPORT MADELINE DELGADILLO RN MENTIONED THAT [facility] PATIENTS DAUGHTER WAS HAVING PHONE PROBLEMS. * Marlys Lopez RN - 02/17/2020 1:15 PM CDT Chlorhexidine used in hospital room x 2 night before and morning of surgery, betadine swabs x 2 placed in bilateral nares per RN. Pt tolerated well. * Ange John RN - 02/17/2020 12:01 AM CDT Pt on regular diet with finger foods at [facility]. ANGE JOHN RN documented in this encounter OR Notes * Op Note - Garfield Pepper MD - 02/18/2020 12:00 AM CDT SURGEON: Garfield Pepper MD BANK MESSENGER: JON Connor PREOPERATIVE DIAGNOSIS: Left femoral neck fracture, displaced. POSTOPERATIVE DIAGNOSIS: Left femoral neck fracture, displaced. PROCEDURE PERFORMED: Left hip hemiarthroplasty. ANESTHESIA: Spinal. ESTIMATED BLOOD LOSS: 100 mL. IMPLANTS: DePuy all components press fit, Actis standard offset femoral stem, size 6 with a 28 mm cobalt chrome femoral head +1.5 mm length. A 47 mm bipolar component. INDICATIONS FOR PROCEDURE: The patient is a 69-year-old female who sustained a fall. She was diagnosed with a displaced femoral neck fracture. Her daughter was counseled about risks and benefits of operative treatment due to the patient's dementia and limited ability to interact and communicate. She elected to proceed with surgery after discussion of the diagnosis, prognosis, and treatment options . DESCRIPTION OF THE PROCEDURE: The patient was brought back to the operating room. Spinal anestheticwas administered. She was then transitioned to the operating room table. Ancef was used for antibiotic. The bilateral lower extremities were prepped and draped in the usual sterile fashion for an anterior approach hip surgery. We also used tranexamic acid 1 gram. Timeout was performed. An incision was made over the anterior aspect of the left hip just distal and lateral to the anterior superior iliac spine. I came to the interval between the tensor fascia teja and the rectus. I incised the fascia over these 2 muscle groups and peeled the tensor off of the overlying fascia. We then came down between the 2 muscles and identified the lateral circumflex vessels. We exposed these and then used the Aquamantys bipolar cautery to coagulate them. We then came through the floor of the interval exposing the vastus lateralis as well as the fat over the anterior femoral neck. We then developed the interval between the superior hip capsule and the gluteus minimus. Once we had done this, we then inserted the Ad soft tissue protector deep to the tensor and rectus. We then marked out our capsulotomy and made a longitudinal capsulotomy in line with the femoral neck. We then made this a T-shaped capsulotomy by extending this along the intertrochanteric line both superiorly and inferiorly. We then reinserted our cobra retractors within the capsulotomy and then further peeled the capsule from the proximal femur down to the top of the lesser trochanter and then out to the saddle region. Once we had done this, we then osteotomized the remainder of the femoral neck and removed that. We then used a power corkscrew to remove the femoral head. Once we had done that, we inspected the acetabulum. 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 Then we then further released the capsular tissue laterally developing the plane between the gluteus minimus and the lateral and superior hip capsule. We then exposed the femur. I was able to do so without using the bed mounted retractor because of the patient's relative ligamentous laxity and fairly thin stature. We then placed the blunt Hohmann medially along the calcar and then placed the curved blade retractor at the posterolateral region, lateral and posterior to the trochanter. With these [address] and with a combination of a slight Trendelenburg onthe bed and dropping the foot, I was able to expose the femur well. We then began by preparing the femur with the box osteotome and a canal finder. Once we had done this, we then broached up sequentially to a size 6 broach, which had excellent fill of the femur from anterior to posterior. This was rotationally stable. A +1.5 mm head and bipolar component were placed onto the broach with a standard offset stem. The hip was then reduced. It did require some traction to reduce the hip. The labrum was preserved during the exposure to help with hip stability. We then obtained fluoroscopic images. This revealed the broach was in good position and the stem was appropriately sized, filling the canal in the anterior to posterior direction and achieving a fairly good fill in the medial lateral direction. Leg lengths clinically were equal and perhaps a millimeter or 2 long on the fluoroscopic appearance compared to the opposite side. It was stable to external rotational stress. We then dislocated the hip and used the calcar planer. We then removed the broach and we were able to impact a size 6standard offset femoral stem into place and came down without any apparent fracture or problems. Jeromyhen cleaned off the trunnion and impacted the femoral head and bipolar component engaging the Sweeney taper. We then carefully reduced the hip again with a combination of traction and internal rotation, the hip again was stable and leg lengths were restored clinically. Fluoroscopic images were takento confirm that there were no fractures or problems with the implant placement. We then irrigated and closed by tying the Ethibond sutures together which were tagged to the superior and inferior capsule and then running the fascial layer with #1 Stratafix barbed PDS suture. Once we had done this, we then closed the skin with 2-0 Vicryl and 3-0 Monocryl with Dermabond. Sterile soft dressing was applied. The patient was transitioned to recovery room in stable condition. #[id number] /NTS * Brief Op Note - Garfield Pepper MD - 02/17/2020 4:03 PM CDT ARTHROPLASTY HIP ROMEO ANTERIOR APPROACH Procedure Note Diane Kline 02/16/2020 - 02/17/2020 1525 Procedure(s) (LRB): ARTHROPLASTY HIP ROMEO ANTERIOR APPROACH (Left) Surgeon(s): Garfield Pepper MD Staff: Porter [employer]: JON Doll; JON Ramos Relief Circulating Nurse: Peg Woods RN Circulating Nurse 1: Madeline Delgadillo RN Scrub Person 1: Obdulio Cruz, APRON MAN Scrub Person 2: Polo BERTA Hart Anesthesia: Spinal Anesthesiologist: Eros Sterling MD; Consuelo Coronado MD AUTOMOTIVE MANAGER: Sharon Coronado CRNA; Brandy Arteaga CRNA Pre-Op Diagnosis: left femoral neck fracture Post-Op Diagnosis: same Findings: See dictation Complications: None Estimated Blood Loss: 100 mL Specimens:* No orders in the log * Drains: None GARFIELD PEPPER MD Date: 02/17/2020 Time: 4:03 PM documented in this encounter ED Notes * Segun Devine MD - 02/16/2020 9:32 PM CDT Chief Complaint Chief Complaint Patient presents with ??? Fall Left hip fracture per X-Rays from CT History of Present Illness The patient is a very pleasant 69-year-old female examined the emergency department. She presents today with left hip pain. The patient is nonverbal at baseline and presents from a long-term care facility. According to retirement staff, the patient was getting dressed and had both legs into one pant leg. She stood up and fell landing on her left side. X-rays were obtained which suggested a lefthip fracture, so the patient is transferred to our facility for evaluation and treatment. Medical History ALLERGIES: No Known Allergies MEDICATIONS: Prior to Admission medications Medication Sig Start Date End Date Taking? Authorizing Provider Cholecalciferol (VITAMIN D3) 50 MCG (1999 UT) Tab Take 2,000 Units by mouth daily. Yes Doc Abstract divalproex DR sprinkle 125 MG capsule Take 125 mg by mouth 3 (three) times a day. Yes Doc Abstract memantine 10 MG tablet Take 10 mg by mouth 2 (two) times daily. Yes Doc Abstract risperiDONE 1 MG tablet Take 1 mg by mouth 2 (two) times daily. Yes Doc Abstract PAST MEDICAL HISTORY: Past Medical History: Diagnosis Date ??? Cataract ??? Dementia (CMS/HCC) ??? Glaucoma ??? Seizures (CMS/HCC) PAST SURGICAL HISTORY: No past surgical history on file. FAMILY HISTORY: No family history on file. SOCIAL HISTORY: Social History Tobacco Use ??? Smoking status: Former Smoker Types: Cigarettes ??? Smokeless tobacco: Never Used Substance Use Topics ??? Alcohol use: No Frequency: Never ??? Drug use: No Review of Systems Review of Systems Review of systems cannot be obtained due to the patient's longstanding altered mental status. Physical Exam Filed Vitals: 02/16/20203302/16/202034 BP: 118/69 Pulse: 75 Resp: 18 Temp: 98.1 ??F (36.7 ??C) TempSrc: Axillary SpO2: 100% Weight: 48.8 kg (107 lb 9.4 oz) Height: 5' 4 (1.626 m) Physical Exam VITALS: Reviewed GENERAL: The patient is a very pleasant 69-year-old female examined in the Emergency Department. Patient is in no acute distress at the time of my exam. HEENT: Normocephalic, atraumatic. Pupils are PERRL. Eyes focus and track. Sclerae are nonicteric and not injected. Hearing is adequate to conversational voice. Ears are without discharge. Nares are grossly patent, and also without discharge. Mucous membranes are dry. NECK: No JVD, tracheal deviation, or subcutaneous emphysema is noted. The bony spine is nontender. CHEST: The thoracic cage is stable to palpation and nontender. LUNGS: Clear to auscultation bilaterally without wheezes, rales or rhonchi. Equal inspiratory and expiratory phases. HEART: Normal rate, regular rhythm. Grossly normal sounds. ABDOMEN: Soft, nontender, nondistended. No masses, bruits or hepatosplenomegaly are noted. EXTREMITIES: The patient is tender to the left hip. Distal CMS is intact. The remainder the extremity exam is unremarkable. NEURO: No gross focal neuro deficits are appreciated. GCS = 15. No seizure activity is noted in theemergency department. PSYCHIATRIC: The patient's mood, affect and interaction are appropriate to setting. SKIN: Normal color, temperature, and turgor noted throughout. Diagnostic Studies / Procedures ELECTROCARDIOGRAMS: Results for orders placed or performed during the hospital encounter of 02/16/20 ECG [address] [facility] [facility] Test Date: 2020-02-16 Pat Name: DIANE KLINE Department: Room: [facility] Gender: Female Stock Manager: FIOR : 1950 Requested By: SEGUN DEVINE Order Number: [id number] Reading MD: Yazan Watkins Measurements Intervals [place] Rate: 72 P: 81 DC: 211 QRS: 72 QRSD: 86 T: 79 QT: 406 QTc: 445 Interpretive Statements SINUS RHYTHM WITH FIRST DEGREE AV BLOCK Compared to ECG 2019 21:09:40 First degree AV block now present Other ischemic changes, not STEMI Segun Devine M.D. CRITICAL ALERT ISSUED ON 02-16-2020 21:15:40 LABORATORY STUDIES: No results found for this visit on 02/16/20. IMAGING STUDIES XR PEL W HIP LAT LT Final Result by User, [id number] (02/16 1700) Examination: AP pelvis and left hip Exam date/time: 02/17/2020 4:22 PM Reason For Exam: postop check Comparison: 02/16/2020 Technique: 2 views left hip and AP pelvis Findings: Left hip prosthesis is seen in place. No acute fractures noted. Prosthesis is in expected position. Femoral component is well-seated bony calcar. Calcified mass in the pelvis likely due to fibroid. =====IMPRESSION:===== Interval placement of left hip prosthesis in satisfactory position. XR HIP LT 1V Final Result by User, [id number] (02/16 5737) Examination: Intraoperative fluoroscopy Exam date/time: 02/17/2020 3:46 PM Reason For Exam: anterior hip pain Comparison: 02/16/2020 Technique: 10 fluoroscopic images were obtained of the left hip and femur fluoroscopy time is 0.1 minutes Findings: Multiple images show sizing and eventual placement of left hip prosthesis. Prosthesis is in expected position on submitted images. =====IMPRESSION:===== Intraoperative fluoroscopy for surgical control and localization of operative procedure. PELVIS 1 OR 2 VIEWS Final Result by User, [id number] (06/24 2224) Examination: XR PELVIS 1 OR 2 VIEWS Exam time: 02/16/2020 10:10 PM Clinical history: Hip fracture. Comparison: Radiograph February 16, 2020. Technique: AP image of the pelvis. Findings: An acute subcapital left femoral neck fracture is identified. There is slight lateral angulation of the fracture with proximal transition of the femur. The left femoral head maintains relationship with the acetabulum. The right hip appears intact. The pelvic rim is intact. The sacroiliac joints are not well seen due to overlying bowel gas. The pubic symphysis appears maintained. Calcifications are seen within the upper left pelvis, likely related to uterine fibroids. IMPRESSION: 1. Acute subcapital left femoral neck fracture. 2. Probable calcified uterine fibroids. Interpreted By: Flash Guerrero MD, 02/16/2020 10:20 PM XR HIP LT 2V Final Result by User, [id number] (02/15 2209) Examination: XR HIP LT 2V Exam time: 02/16/2020 9:44 PM Clinical history: Fall with fracture. Comparison: No comparison. Technique: AP and crosstable lateral images were obtained. Findings: There is an acute subcapital femoral neck fracture, demonstrating slight lateral angulation. The femoral head appears retained within the left hip acetabulum. No destructive osseous lesion is seen. IMPRESSION: Acute subcapital femoral neck fracture. Interpreted By: Flash Guerrero MD, 02/16/2020 10:06 PM XR CHEST PORTABLE Final Result by User, [id number] (02/15 2110) Examination: XR CHEST PORTABLE Exam time: 02/16/2020 8:57 PM Clinical history: Chest pain. Comparison: Radiograph 2019. Technique: AP image of the chest. Findings: The cardiomediastinal silhouette appears normal. Calcifications are seen within the thoracic aorta. There is no pulmonary consolidation, pleural effusion or pneumothorax. The pulmonary vasculature appears normal. No acute osseous abnormality is identified. IMPRESSION: No acute chest disease identified. Interpreted By: Flash Guerrero MD, 02/16/2020 9:06 PM ED Course / Medical Decision Making This patient was evaluated for the symptoms described in the history of present illness. She was evaluated in the context of the global COVID-19 pandemic, which necessitated consideration that the patient might be at risk for infection with the SARS-CoV-2 virus that causes COVID-19. Institutional protocols and algorithms that pertain to the evaluation of patients at risk for COVID-19 are in a state of rapid change based on information released by regulatory bodies including the CDC and federal and state organizations. These policies and algorithms were followed during the patient's care. Discussed all the pertinent/banuelos information above including H&P and testing and my diagnosis/differential with Dr. Pepper of orthopedic surgery who agrees with the assessment and plan and recommends admission. Hospitalist (Dr. Eckert) service consulted. We thoroughly discussed the history, physical exam, laboratory and imaging studies, as well as, emergency department course. Based upon that discussion, we've decided to admit for further observation and evaluation of their hip fracture. As I have deemed necessary from their history, physical, and studies, I have considered and evaluated for the following diagnoses: DISPLACED FRACTURE, COMPARTMENT SYNDROME, DISLOCATION, or SIGNIFICANT NERVE DAMAGE. Clinical Impression Hip fx, left, closed, initial encounter ([facility]) (Primary) Disposition: Admit Segun Devine MD 02/20/20 0559 * Marlys Mireles RN - 02/16/2020 8:42 PM CDT Bed: 09 Expected date: Expected time: Means of arrival: Comments: [id number] * Grecia Hamm RN - 02/16/2020 8:35 PM CDT EMS from [facility], Pt fell this morning, pt was getting dressed with assistance, put both legs inpants and then stood up and fell, landed on left side. Pt attempted to walk, favoring her left side, x-ray done, showed left hip fracture neck with displacement. documented in this encounter Plan of Treatment Not on file documented as of this encounter Procedures Procedure Name Priority Date/Time Associated Diagnosis Comments BASIC METABOLIC PANEL Routine 02/19/2020 5:31 AM CDT CBC W/DIFF AUTOMATED Routine 02/19/2020 5:31 AM CDT BASIC METABOLIC PANEL Routine 02/18/2020 9:23 AM CDT CBC W/DIFF AUTOMATED Routine 02/18/2020 9:23 AM CDT XR PEL W HIP LAT LT STAT 02/17/2020 4 :43 PM CDT SURG XR HIP LT 1V Routine 02/17/2020 3:4 6 PM CDT ARTHROPLASTY HIP ROMEO ANTERIOR APPROACH 02/17/2020 1:51 PM CDT left hip fracture TYPE & SCREEN STAT 02/17/2020 7:33 AM CDT PROTHROMBIN TIME, VENOUS Routine 02/17/2020 4:40 AM CDT BASIC METABOLIC PANEL Routine 02/17/2020 4:40 AM CDT CBC W/DIFF AUTOMATED Routine 02/17/2020 4:40 AM CDT MAGNESIUM Routine 02/17/2020 4:40 AM CDT XR PELVIS 1 OR 2 VIEWS STAT 0 10:18 PM CDT XR HIP LT 2V STAT 02/16/2020 10:04 PM CDT ECG 12-LEAD Routine 02/16/2020 9:09 PM CDT XR CHEST PORTABLE STAT 02/16/2020 9:0 3 PM CDT PARTIAL THROMBOPLASTIN TIME,PTT STAT 02/16/2020 8:53 PM CDT PROTHROMBIN TIME, VENOUS STAT 02/16/2020 8:53 PM CDT COMPREHENSIVE METABOLIC PANEL STAT 02/16/2020 8:53 PM CDT CBC W/DIFF AUTOMATED STAT 02/16/2020 8:53 PM CDT documented in this encounter Results * (ABNORMAL) BASIC METABOLIC PANEL (02/19/2020 5:31 AM CDT) [facility] GLUCOSE 77 70 - 99 MG/DL 02/19/2020 6:24 AM CDT [facility] BUN 12 7 - 18 MG/DL 02/19/2020 6:24 AM CDT [facility] CREATININE S/P/B 0.63 0.55 - 1.02 MG/DL 02/19/2020 6:24 AM CDT [facility] SODIUM S/P/B 139 136 - 145 MMOL/L 02/19/2020 6:24 AM CDT [facility] POTASSIUM S/P/B 4.1 3.5 - 5.1 MMOL/L 02/19/2020 6:24 AM CDT [facility] CHLORIDE S/P/B 110(H) 100 - 108 MMOL/L 02/19/2020 6:24 AM CDT [facility] CO2 27.3 21 - 32 MMOL/L 02/19/2020 6:24 AM CDT [facility] CALCIUM S/P/B 8.9 8.5 - 10.1 MG/DL 02/19/2020 6:24 AM CDT [facility] ANION GAP 1.7(L) 5 - 15 MMOL/L 02/19/2020 6:24 AM CDT [facility] BUN CREATININE RATIO 19.0 6 - 26 02/19/2020 6:24 AM CDT [facility] EGFR NON-AFR. AMER. >90 >90 ML/MIN/1.7 3 M2 02/19/2020 6:24 AM CDT [facility] EGFR AFR. AMER. >90 >90 ML/MIN/1.7 3 M2 02/19/2020 6:24 AM CDT [facility] Comment: NOTE: eGFR is not calculated for patients <18 years of age. This is an estimated GFR (CKD EPI) and should not be used for calculating drug doses. 02/19/2020 5:31 AM CDT us Tramaine Gonzalez MD LABORATORY Final Result [facility] [address] [place] [address], [place] [phone] * (ABNORMAL) CBC W/DIFF AUTOMATED (02/19/2020 5:31 AM CDT) WBC 8.5 4.5 - 11.0 x10'3/uL 02/19/2020 5:54 AM CDT [facility] RBC 3.56(L) 4.20 - 5.40 x10'6/uL 02/19/2020 5:54 AM CDT [facility] HGB 11.2(L) 12.0 - 16.0 G/DL 02/19/2020 5:54 AM CDT [facility] HCT 33.6(L) 38.0 - 48.0 % 02/19/2020 5:54 AM CDT [facility] MCV 94.4(H) 80.0 - 94.0 FL 02/19/2020 5:54 AM CDT [facility] MCH 31.5(H) 27.0 - 31.0 PG 02/19/2020 5:54 AM CDT [facility] MCHC 33.3 32.0 - 36.0 G/DL 02/19/2020 5:54 AM CDT [facility] RDW 13.2 11.5 - 14.5 % 02/19/2020 5:54 AM CDT [facility] PLT 172 130 - 400 x10'3/uL 02/19/2020 5:54 AM CDT [facility] MPV 10.4 9.3 - 12.2 FL 02/19/2020 5:54 AM CDT [facility] DIFFERENTIAL TYPE AUTOMATED DIFFERENTIAL 02/19/2020 5:54 AM CDT [facility] NEUTROPHILS % 71.7 % 02/19/2020 5:54 AM CDT [facility] LYMPHOCYTES % 12.4 % 02/19/2020 5:54 AM CDT [facility] MONOCYTES % 14.7 % 02/19/2020 5:54 AM CDT [facility] EOSINOPHILS 0.4 % 02/19/2020 5:54 AM CDT [facility] BASOPHILS 0.2 % 02/19/2020 5:54 AM CDT [facility] IMMATURE GRANS % 0.6 % 02/19/20 20 5:54 AM CDT [facility] ABS. NEUTROPHILS TOTAL 6.08 1.80 - 7.70 x10'3/uL 02/19/2020 5:54 AM CDT [facility] ABS. LYMPHOCYTES 1.05 1.00 - 4.80 x10'3/uL 02/19/2020 5:54 AM CDT [facility] ABS. MONOCYTES 1.25(H) 0.24 - 0.86 x10'3/uL 02/19/2020 5:54 AM CDT [facility] ABS. EOSINOPHILS 0.03(L) 0.04 - 0.36 x10'3/uL 02/19/2020 5:54 AM CDT [facility] ABS. BASOPHILS 0.02 0.01 - 0.08 x10'3/uL 02/19/2020 5:54 AM CDT [facility] ABS. IMMATURE GRANULOCYTES 0.05 0.00 - 0.49 x10'3/uL 02/19/2020 5:54 AM CDT [facility] 02/19/2020 5:31 AM CDT us Tramaine Gonzalez MD LABORATORY Final Result [facility] [address] [place] [address], [place] [phone] * (ABNORMAL) BASIC METABOLIC PANEL (02/18/2020 9:23 AM CDT) GLUCOSE 102(H) 70 - 99 MG/DL 02/18/2020 10:26 AM CDT [facility] BUN 12 7 - 18 MG/DL 02/18/2020 10:26 AM CDT [facility] CREATININE S/P/B 0.90 0.55 - 1.02 MG/DL 02/18/2020 10:26 AM CDT [facility] SODIUM S/P/B 136 136 - 145 MMOL/L 02/18/2020 10:26 AM CDT [facility] POTASSIUM S/P/B 4.3 3.5 - 5.1 MMOL/L 02/18/2020 10:26 AM CDT [facility] CHLORIDE S/P/B 109(H) 100 - 108 MMOL/L 02/18/2020 10:26 AM CDT [facility] CO2 22.0 21 - 32 MMOL/L 02/18/2020 10:26 AM CDT [facility] CALCIUM S/P/B 9.1 8.5 - 10.1 MG/DL 02/18/2020 10:26 AM CDT [facility] ANION GAP 5.0 5 - 15 MMOL/L 02/18/2020 10:26 AM CDT [facility] BUN CREATININE RATIO 13.4 6 - 02/18/2020 10:26 AM CDT [facility] EGFR NON-AFR. AMER. 66(L) >90 ML/MIN/1.7 3 M2 02/18/2020 10:26 AM CDT [facility] EGFR AFR. AMER. 76(L) >90 ML/MIN/1.7 3 M2 02/18/2020 10:26 AM CDT [facility] Comment: NOTE: eGFR is not calculated for patients <18 years of age. This is an estimated GFR (CKD EPI) and should not be used for calculating drug doses. 02/18/2020 9:23 AM CDT us Tramaine Gonzalez MD LABORATORY Final Result [facility] [address] [place] [address], [place] [phone] * (ABNORMAL) CBC W/DIFF AUTOMATED (02/18/2020 9:23 AM CDT) WBC 11.6(H) 4.5 - 11.0 x10'3/uL 02/18/2020 11:53 AM CDT [facility] RBC 3.83(L) 4.20 - 5.40 x10'6/uL 02/18/2020 11:53 AM CDT [facility] HGB 11.8(L) 12.0 - 16.0 G/DL 02/18/2020 11:53 AM CDT [facility] HCT 36.8(L) 38.0 - 48.0 % 02/18/2020 11:53 AM CDT [facility] MCV 96.1(H) 80.0 - 94.0 FL 02/18/2020 11:53 AM CDT [facility] MCH 30.8 27.0 - 31.0 PG 02/18/2020 11:53 AM CDT [facility] MCHC 32.1 32.0 - 36.0 G/DL 02/18/2020 11:53 AM CDT [facility] RDW 13.2 11.5 - 14.5 % 02/18/2020 11:53 AM CDT [facility] PLT 210 130 - 400 x10'3/uL 02/18/2020 11:53 AM CDT [facility] MPV 10.7 9.3 - 12.2 FL 02/18/2020 11:53 AM CDT [facility] DIFFERENTIAL TYPE AUTOMATED DIFFERENTIAL 02/18/2020 11:53 AM CDT [facility] NEUTROPHILS % 81.5 % 02/18/2020 11:53 AM CDT [facility] LYMPHOCYTES % 9.1 % 02/18/2020 11:53 AM CDT [facility] MONOCYTES % 9.0 % 02/18/2020 11:53 AM CDT [facility] EOSINOPHILS 0.0 % 02/18/2020 11:53 AM CDT [facility] BASOPHILS 0.1 % 02/18/2020 11:53 AM CDT [facility] IMMATURE GRANS % 0.3 % 02/18/20 20 11:53 AM CDT [facility] ABS. NEUTROPHILS TOTAL 9.44(H) 1.80 - 7.70 x10'3/uL 02/18/2020 11:53 AM CDT [facility] ABS. LYMPHOCYTES 1.05 1.00 - 4.80 x10'3/uL 02/18/2020 11:53 AM CDT [facility] ABS. MONOCYTES 1.04(H) 0.24 - 0.86 x10'3/uL 02/18/2020 11:53 AM CDT [facility] ABS. EOSINOPHILS 0.00(L) 0.04 - 0.36 x10'3/uL 02/18/2020 11:53 AM CDT [facility] ABS. BASOPHILS 0.01 0.01 - 0.08 x10'3/uL 02/18/2020 11:53 AM CDT [facility] ABS. IMMATURE GRANULOCYTES 0.03 0.00 - 0.49 x10'3/uL 02/18/2020 11:53 AM CDT [facility] 02/18/2020 9:23 AM CDT Tramaine Gonzalez MD LABORATORY Final Result [facility] [address] [place] [id number], [place] [phone] * XR PEL W HIP LAT LT (02/17/2020 4:43 PM CDT) Anatomical Region Laterality Modality Pelvis, Hip Radiographic Narda ging 02/17/2020 4:57 PM CDT Impressions 02/17/2020 4:58 PM CDT =====IMPRESSION:===== Interval placement of left hip prosthesis in satisfactory position. Narrative 02/17/2020 4:58 PM CDT Examination: AP pelvis and left hip Exam date/time: 02/17/2020 4:22 PM ?? Reason For Exam: ??postop check ? Comparison: 02/16/2020 Technique: 2 views left hip and AP pelvis Findings: Left hip prosthesis is seen in place. No acute fractures noted. Prosthesis is in expected position. Femoral component is well-seated bony calcar. Calcified mass in the pelvis likely due to fibroid. Procedure Note Ramirez Roth MD - 02/17/2020 Examination: AP pelvis and left hip Exam date/time: 02/17/2020 4:22 PM Reason For Exam: postop check Comparison: 02/16/2020 Technique: 2 views left hip and AP pelvis Findings: Left hip prosthesis is seen in place. No acute fracturesnoted. Prosthesis is in expected position. Femoral component is well-seatedbony calcar. Calcified mass in the pelvis likely due to fibroid. =====IMPRESSION:===== Interval placement of left hip prosthesis in satisfactory position. Garfield Pepper MD GENERAL IMAGING Final Result * SURG XR HIP LT 1V (02/17/2020 3:46 PM CDT) Anatomical Region Laterality Modality Hip Radiographic Narda ging 02/17/2020 4:53 PM CDT Impressions 02/17/2020 4:55 PM CDT =====IMPRESSION:===== Intraoperative fluoroscopy for surgical control and localization of operative procedure. Narrative 02/17/2020 4:55 PM CDT Examination: Intraoperative fluoroscopy Exam date/time: 02/17/2020 3:46 PM ?? Reason For Exam: ??anterior hip pain ? Comparison: 02/16/2020 Technique: 10 fluoroscopic images were obtained of the left hip and femur fluoroscopy time is 0.1 minutes Findings: Multiple images show sizing and eventual placement of left hip prosthesis. Prosthesis is in expected position on submitted images. Procedure Note Ramirez Roth MD - 02/17/2020 Examination: Intraoperative fluoroscopy Exam date/time: 02/17/2020 3:46 PM Reason For Exam: anterior hip pain Comparison: 02/16/2020 Technique: 10 fluoroscopic images were obtained of the left hip andfemur fluoroscopy time is 0.1 minutes Findings: Multiple images show sizing and eventual placement of left hip prosthesis. Prosthesis is in expected position on submitted images. =====IMPRESSION:===== Intraoperative fluoroscopy for surgical control and localization of operative procedure. us Garfield Pepper MD IMAGES ONLY Final Result * TYPE & SCREEN (02/17/2020 7:33 AM CDT) ABO/RH B POSITIVE 02/17/2020 8:50 AM CDT [facility] ANTIBODY SCREEN NEGATIVE 02/17/2020 8:50 AM CDT [facility] SAMPLE EXPIRATION 02/20/2020,2 359 02/17/2020 8:50 AM CDT [facility] 02/17/2020 7:33 AM CDT us Garfield Pepper MD BLOOD BANK TEST ORDERABLES F inal Result [facility] [address] [place] [address], [place] [phone] * (ABNORMAL) BASIC METABOLIC PANEL (02/17/2020 4:40 AM CDT) GLUCOSE 143(H) 70 - 99 MG/DL 02/17/2020 5:25 AM CDT [facility] BUN 14 7 - 18 MG/DL 02/17/2020 5:25 AM CDT [facility] CREATININE S/P/B 0.83 0.55 - 1.02 MG/DL 02/17/2020 5:25 AM CDT [facility] SODIUM S/P/B 137 136 - 145 MMOL/L 02/17/2020 5:25 AM CDT [facility] POTASSIUM S/P/B 3.9 3.5 - 5.1 MMOL/L 02/17/2020 5:25 AM CDT [facility] CHLORIDE S/P/B 107 100 - 108 MMOL/L 02/17/2020 5:25 AM CDT [facility] CO2 23.7 21 - 32 MMOL/L 02/17/2020 5:25 AM CDT [facility] CALCIUM S/P/B 9.5 8.5 - 10.1 MG/DL 02/17/2020 5:25 AM CDT [facility] ANION GAP 6.3 5 - 15 MMOL/L 02/17/2020 5:25 AM CDT [facility] BUN CREATININE RATIO 16.9 6 - 26 02/17/2020 5:25 AM CDT [facility] EGFR NON-AFR. AMER. 72(L) >90 ML/MIN/1.7 3 M2 02/17/2020 5:25 AM CDT [facility] EGFR AFR. AMER. 84(L) >90 ML/MIN/1.7 3 M2 02/17/2020 5:25 AM CDT [facility] Comment: NOTE: eGFR is not calculated for patients <18 years of age. This is an estimated GFR (CKD EPI) and should not be used for calculating drug doses. 02/17/2020 4:40 AM CDT us Asha Eckert MD LABORATORY Final Resul t [facility] [address] [place] [address], [place] [phone] * MAGNESIUM (02/17/2020 4:40 AM CDT) MAGNESIUM 1.8 1.8 - 2.4 MG/DL 02/17/2020 5:25 AM CDT [facility] 02/17/2020 4:40 AM CDT Asha Eckert MD LABORATORY Final Resul t [facility] [address] [place] [address], [place] [phone] * PROTHROMBIN TIME, VENOUS (02/17/2020 4:40 AM CDT) PROTIME 11.2 9.6 - 12.2 SEC 02/17/2020 5:31 AM CDT [facility] INR 1.0 02/17/2020 5:31 AM CDT [facility] Comment: Recommended INR Therapeutic Goals: ??2.0-3.0 Routine Therapy ??2.5-3.5 Mechanical Prosthetic Valves (High Risk) ??3.0-4.0 Acute SD (to prevent Systemic Embolism) The INR is used only for patients on stable oral anticoagulant therapy. It makes no significant contribution to the diagnosis or treatment of patients whose Protime is prolonged for other reasons. 02/17/2020 4:40 AM CDT Asha Eckert MD LABORATORY Final Resul t [facility] [address] [place] [address], [place] [phone] * (ABNORMAL) CBC W/DIFF AUTOMATED (02/17/2020 4:40 AM CDT) WBC 11.5(H) 4.5 - 11.0 x10'3/uL 02/17/2020 6:48 AM CDT [facility] RBC 3.86(L) 4.20 - 5.40 x10'6/uL 02/17/2020 6:48 AM CDT [facility] HGB 11.8(L) 12.0 - 16.0 G/DL 02/17/2020 6:48 AM CDT [facility] HCT 35.9(L) 38.0 - 48.0 % 02/17/2020 6:48 AM CDT [facility] MCV 93.0 80.0 - 94.0 FL 02/17/2020 6:48 AM CDT [facility] MCH 30.6 27.0 - 31.0 PG 02/17/2020 6:48 AM CDT [facility] MCHC 32.9 32.0 - 36.0 G/DL 02/17/2020 6:48 AM CDT [facility] RDW 12.8 11.5 - 14.5 % 02/17/2020 6:48 AM CDT [facility] PLT 239 130 - 400 x10'3/uL 02/17/2020 6:48 AM CDT [facility] MPV 10.0 9.3 - 12.2 FL 02/17/2020 6:48 AM CDT [facility] DIFFERENTIAL TYPE AUTOMATED DIFFERENTIAL 02/17/2020 6:48 AM CDT [facility] NEUTROPHILS % 82.3 % 02/17/2020 6:48 AM CDT [facility] LYMPHOCYTES % 6.6 % 02/17/2020 6:48 AM CDT [facility] MONOCYTES % 10.6 % 02/17/2020 6:48 AM CDT [facility] EOSINOPHILS 0.0 % 02/17/2020 6:48 AM CDT [facility] BASOPHILS 0.2 % 02/17/2020 6:48 AM CDT [facility] IMMATURE GRANS % 0.3 % 02/17/20 6:48 AM CDT [facility] ABS. NEUTROPHILS TOTAL 9.43(H) 1.80 - 7.70 x10'3/uL 02/17/2020 6:48 AM CDT [facility] ABS. LYMPHOCYTES 0.76(L) 1.00 - 4.80 x10'3/uL 02/17/2020 6:48 AM CDT [facility] ABS. MONOCYTES 1.21(H) 0.24 - 0.86 x10'3/uL 02/17/2020 6:48 AM CDT [facility] ABS. EOSINOPHILS 0.00(L) 0.04 - 0.36 x10'3/uL 02/17/2020 6:48 AM CDT [facility] ABS. BASOPHILS 0.02 0.01 - 0.08 x10'3/uL 02/17/2020 6:48 AM CDT [facility] ABS. IMMATURE GRANULOCYTES 0.04 0.00 - 0.49 x10'3/uL 02/17/2020 6:48 AM CDT [facility] 02/17/2020 4:40 AM CDT Asha Eckert MD LABORATORY Final Resul t [facility] [address] [place] [address], [place] [phone] * XR PELVIS 1 OR 2 VIEWS (02/16/2020 10:18 PM CDT) Anatomical Region Laterality Modality Pelvis Radiographic Narda ging 02/16/2020 10:2 0 PM CDT Impressions 02/16/2020 10:23 PM CDT IMPRESSION: 1. ??Acute subcapital left femoral neck fracture. 2. ??Probable calcified uterine fibroids. Interpreted By: Flash Guerrero MD, 02/16/2020 10:20 PM Narrative 02/16/2020 10:23 PM CDT Examination: XR PELVIS 1 OR 2 VIEWS Exam time: 02/16/2020 10:10 PM Clinical history: Hip fracture. Comparison: Radiograph February 16, 2020. Technique: AP image of the pelvis. Findings: An acute subcapital left femoral neck fracture is identified. ??There is slight lateral angulation of the fracture with proximal transition of the femur. ??The left femoral head maintains relationship with the acetabulum. ??The right hip appears intact. ??The pelvic rim is intact. ??The sacroiliac joints are not well seen due to overlying bowel gas. ??The pubic symphysis appears maintained. ??Calcifications are seen within the upper left pelvis, likely related to uterine fibroids. Procedure Note Flash Guerrero MD - 02/16/2020 Examination: XR PELVIS 1 OR 2 VIEWS Exam time: 02/16/2020 10:10 PM Clinical history: Hip fracture. Comparison: Radiograph February 16, 2020. Technique: AP image of the pelvis. Findings: An acute subcapital left femoral neck fracture is identified. There isslight lateral angulation of the fracture with proximal transition of thefemur. The left femoral head maintains relationship with the acetabulum.The right hip appears intact. The pelvic rim is intact. The sacroiliacjoints are not well seen due to overlying bowel gas. The pubic symphysisappears maintained. Calcifications are seen within the upper left pelvis,likely related to uterine fibroids. IMPRESSION: 1. Acute subcapital left femoral neck fracture. 2. Probable calcified uterine fibroids. Interpreted By: Flash Guerrero MD, 02/16/2020 10:20 PM Garfield Pepper MD GENERAL IMAGING Final Result * XR HIP LT 2V (02/16/2020 10:04 PM CDT) Anatomical Region Laterality Modality Hip Radiographic Narda ging 02/16/2020 10:0 6 PM CDT Impressions 02/16/2020 10:08 PM CDT IMPRESSION: Acute subcapital femoral neck fracture. Interpreted By: Flash Guerrero MD, 02/16/2020 10:06 PM Narrative 02/16/2020 10:08 PM CDT Examination: XR HIP LT 2V Exam time: 02/16/2020 9:44 PM Clinical history: Fall with fracture. Comparison: No comparison. Technique: AP and crosstable lateral images were obtained. Findings: There is an acute subcapital femoral neck fracture, demonstrating slight lateral angulation. ??The femoral head appears retained within the left hip acetabulum. ??No destructive osseous lesion is seen. Procedure Note Flash Guerrero MD - 02/16/2020 Examination: XR HIP LT 2V Exam time: 02/16/2020 9:44 PM Clinical history: Fall with fracture. Comparison: No comparison. Technique: AP and crosstable lateral images were obtained. Findings: There is an acute subcapital femoral neck fracture, demonstrating slightlateral angulation. The femoral head appears retained within the left hipacetabulum. No destructive osseous lesion is seen. IMPRESSION: Acute subcapital femoral neck fracture. Interpreted By: Flash Guerrero MD, 02/16/2020 10:06 PM Segun Devine MD GENERAL IMAGING Final Result * ECG 12 lead (02/16/2020 9:09 PM CDT) 02/16/2020 9:09 PM CDT Narrative [facility] - 02/16/2020 10:25 PM CDT ?[facility] [place] ? [address], [place] ? Test Date: ?2020-02-16 Pat Name: ? DIANE KLINE ? Department: ? Room: ? [facility] Gender: ? Female ? Stock Manager: ?? VB : ?1950 ? Requested By: SEGUN PETER Order Number: [id number] ? Reading MD: ?? Yazan Hushion ? Measurements Intervals ?[place] ? Rate: ? 72 ? P: ?81 DC: ? 211 ?QRS: ?72 QRSD: ? 86 ? T: ?79 QT: ? 406 ? QTc: ?445 ? Interpretive Statements SINUS RHYTHM WITH FIRST DEGREE AV BLOCK Compared to ECG 2019 21:09:40 First degree AV block now present Other ischemic changes, not STEMI Segun Devine M.D. CRITICAL ALERT ISSUED ON 02-16-2020 21:15:40 Procedure Note Yazan Watkins MD - 02/16/[address] [facility] [address] Test Date: 2020-02-16 Pat Name: DIANE KLINE Department: Room: [facility] Gender: Female Stock Manager: FIOR : 1950 Requested By: SEGUN DEVINE Order Number: [id number] Reading MD: Yazan Watkins Measurements Intervals [place] Rate: 72 P: 81 DC: 211 QRS: 72 QRSD: 86 T: 79 QT: 406 QTc: 445 Interpretive Statements SINUS RHYTHM WITH FIRST DEGREE AV BLOCK Compared to ECG 2019 21:09:40 First degree AV block now present Other ischemic changes, not STEMI Segun Devine M.D. CRITICAL ALERT ISSUED ON 02-16-2020 21:15:40 us Segun Devine MD ECG ORDERABLES Final Result [facility] * XR CHEST PORTABLE (02/16/2020 9:03 PM CDT) Anatomical Region Laterality Modality Chest Fluoroscopy 02/16/2020 9:0 6 PM CDT Impressions 02/16/2020 9:09 PM CDT IMPRESSION: No acute chest disease identified. Interpreted By: Flash Guerrero MD, 02/16/2020 9:06 PM Narrative 02/16/2020 9:09 PM CDT Examination: XR CHEST PORTABLE Exam time: 02/16/2020 8:57 PM Clinical history: Chest pain. Comparison: Radiograph 2019. Technique: AP image of the chest. Findings: The cardiomediastinal silhouette appears normal. ??Calcifications are seen within the thoracic aorta. ??There is no pulmonary consolidation, pleural effusion or pneumothorax. The pulmonary vasculature appears normal. ??No acute osseous abnormality is identified. Procedure Note Flash Guerrero MD - 02/16/2020 Examination: XR CHEST PORTABLE Exam time: 02/16/2020 8:57 PM Clinical history: Chest pain. Comparison: Radiograph 2019. Technique: AP image of the chest. Findings: The cardiomediastinal silhouette appears normal. Calcifications are seenwithin the thoracic aorta. There is no pulmonary consolidation, pleuraleffusion or pneumothorax. The pulmonary vasculature appears normal. Noacute osseous abnormality is identified. IMPRESSION: No acute chest disease identified. Interpreted By: Flash Guerrero MD, 02/16/2020 9:06 PM us Segun Devine MD GENERAL IMAGING Final Result * (ABNORMAL) PARTIAL THROMBOPLASTIN TIME,PTT (02/16/2020 8:53 PM CDT) PTT 20.5(L) 25.5 - 37.6 SEC 02/16/2020 9:57 PM CDT [facility] 02/16/2020 8:53 PM CDT us Segun Devine MD LABORATORY Final Result [facility] [address] [place] [address], [place] [phone] * PROTIME/INR, VENOUS (02/16/2020 8:53 PM CDT) [facility] PROTIME 11.3 9.6 - 12.2 SEC 02/16/2020 9:57 PM CDT [facility] INR 1.0 02/16/2020 9:57 PM CDT [facility] Comment: Recommended INR Therapeutic Goals: ??2.0-3.0 Routine Therapy ??2.5-3.5 Mechanical Prosthetic Valves (High Risk) ??3.0-4.0 Acute SD (to prevent Systemic Embolism) The INR is used only for patients on stable oral anticoagulant therapy. It makes no significant contribution to the diagnosis or treatment of patients whose Protime is prolonged for other reasons. 02/16/2020 8:53 PM CDT Segun Devine MD LABORATORY Final Result [facility] [address] [place] [id number], * (ABNORMAL) CBC W/DIFF AUTOMATED (02/16/2020 8:53 PM CDT) [facility] WBC 13.8(H) 4.5 - 11.0 x10'3/uL 02/16/2020 9:33 PM CDT [facility] RBC 4.13(L) 4.20 - 5.40 x10'6/uL 02/16/2020 9:33 PM CDT [facility] HGB 12.8 12.0 - 16.0 G/DL 02/16/2020 9:33 PM CDT [facility] HCT 39.0 38.0 - 48.0 % 02/16/2020 9:33 PM CDT [facility] MCV 94.4(H) 80.0 - 94.0 FL 02/16/2020 9:33 PM CDT [facility] MCH 31.0 27.0 - 31.0 PG 02/16/2020 9:33 PM CDT [facility] MCHC 32.8 32.0 - 36.0 G/DL 02/16/2020 9:33 PM CDT [facility] RDW 12.7 11.5 - 14.5 % 02/16/2020 9:33 PM CDT [facility] PLT 249 130 - 400 x10'3/uL 02/16/2020 9:33 PM CDT [facility] MPV 10.3 9.3 - 12.2 FL 02/16/2020 9:33 PM CDT [facility] DIFFERENTIAL TYPE AUTOMATED DIFFERENTIAL 02/16/2020 9:33 PM CDT [facility] NEUTROPHILS % 86.5 % 02/16/2020 9:33 PM CDT [facility] LYMPHOCYTES % 5.3 % 02/16/2020 9:33 PM CDT [facility] MONOCYTES % 7.5 % 02/16/2020 9:33 PM CDT [facility] EOSINOPHILS 0.1 % 02/16/2020 9:33 PM CDT [facility] BASOPHILS 0.1 % 02/16/2020 9:33 PM CDT [facility] IMMATURE GRANS % 0.5 % 02/16/20 20 9:33 PM CDT [facility] ABS. NEUTROPHILS TOTAL 11.93(H) 1.80 - 7.70 x10'3/uL 02/16/2020 9:33 PM CDT [facility] ABS. LYMPHOCYTES 0.73(L) 1.00 - 4.80 x10'3/uL 02/16/2020 9:33 PM CDT [facility] ABS. MONOCYTES 1.03(H) 0.24 - 0.86 x10'3/uL 02/16/2020 9:33 PM CDT [facility] ABS. EOSINOPHILS 0.01(L) 0.04 - 0.36 x10'3/uL 02/16/2020 9:33 PM CDT [facility] ABS. BASOPHILS 0.02 0.01 - 0.08 x10'3/uL 02/16/2020 9:33 PM CDT [facility] ABS. IMMATURE GRANULOCYTES 0.07 0.00 - 0.49 x10'3/uL 02/16/2020 9:33 PM CDT [facility] 02/16/2020 8:53 PM CDT us Segun Devine MD LABORATORY Final Result [facility] [address] [place] [id number], * (ABNORMAL) COMPREHENSIVE METABOLIC PANEL (02/16/2020 8:53 PM CDT) GLUCOSE 146(H) 70 - 99 MG/DL 02/16/2020 9:55 PM CDT [facility] BUN 14 7 - 18 MG/DL 02/16/2020 9:55 PM CDT [facility] CREATININE S/P/B 0.82 0.55 - 1.02 MG/DL 02/16/2020 9:55 PM CDT [facility] SODIUM S/P/B 139 136 - 145 MMOL/L 02/16/2020 9:55 PM CDT [facility] POTASSIUM S/P/B 4.0 3.5 - 5.1 MMOL/L 02/16/2020 9:55 PM CDT [facility] Comment:SLIGHT HEMOLYSIS, RE SULT MAY BE AFFECTED. CHLORIDE S/P/B 107 100 - 108 MMOL/L 02/16/2020 9:55 PM CDT [facility] CO2 26.0 21 - 32 MMOL/L 02/16/2020 9:55 PM CDT [facility] CALCIUM S/P/B 9.6 8.5 - 10.1 MG/DL 02/16/2020 9:55 PM T [facility] BILIRUBIN TOTAL S/P/B 0.4 0.2 - 1.2 MG/DL 02/16/2020 9:55 PM CDT [facility] Comment: THIS ASSAY IS NOT RECOMMENDED FOR PATIENTS UNDERGOING TREATMENT WITH ELTROMBOPAG DUE TO THE POTENTIAL FOR FALSELY ELEVATED RESULTS. TOTAL PROTEIN S/P/B 7.6 6.4 - 8.2 G/DL 02/16/2020 9:55 PM T [facility] ALBUMIN S/P/B 3.9 3.4 - 5.0 G/DL 02/16/2020 9:55 PM T [facility] AST 24 15 - 37 U/L 02/16/2020 9:55 PM T [facility] Comment:SLIGHT HEMOLYSIS, RE SULT MAY BE AFFECTED. ALT 18 14 - 55 U/L 02/16/2020 9:55 PM T [facility] ALKALINE PHOSPHATASE S/P/B 88 50 - 136 U/L 02/16/2020 9:55 PM T [facility] ANION GAP 6.0 5 - 15 MMOL/L 02/16/2020 9:55 PM T [facility] BUN CREATININE RATIO 17.0 6 - 26 02/16/2020 9:55 PM T [facility] A/G RATIO 1.1 1.0 - 2.0 RATIO 02/16/2020 9:55 PM [facility] EGFR NON-AFR. AMER. 74(L) >90 ML/MIN/1.7 3 M2 02/16/2020 9:55 PM T [facility] EGFR AFR. AMER. 85(L) >90 ML/MIN/1.7 3 M2 02/16/2020 9:55 PM CDT [facility] Comment: NOTE: eGFR is not calculated for patients <18 years of age. This is an estimated GFR (CKD EPI) and should not be used for calculating drug doses. 02/16/2020 8:53 PM CDT Segun Devine MD LABORATORY Final Result [facility] [address] [place] [address], [place] [phone] documented in this encounter Visit Diagnoses Not on filedocumented in this encounter Administered Medications Inactive Administered Medications - up to 3 most recent administrations Medication Order MAR Action Action Date Dose Rate Site 0.9 % NaCl with KCl 20 mEq infusion at 75 mL/hr, Intravenous, Continuous, Starting on Yara 02/17/20 at 1215, Until 02/19/20 at 2108 New Bag 02/18/2020 7:42 PM CDT 75 mL/hr 75 mL/hr New Bag 02/18/2020 5:43 AM CDT 75 mL/hr 75 mL/hr New Bag 02/17/2020 5:26 PM CDT 75 mL/hr 75 mL/hr acetaminophen (TYLENOL) tablet 650 mg 650 mg, Oral, Every 4 hours PRN, Mild pain (Scale 1 - 3), Headaches, Fever, Starting on Fri02/16/20 at 2306, Until 02/19/20 at 2108, Maximum dose of acetaminophen is 4000 mg from all sources in 24 hours. Given 02/18/2020 10:19 AM CDT 650 mg Given 02/18/2020 5:43 AM CDT 650 mg Given 02/16/2020 11:56 PM CDT [address] sprinkle (DEPAKOTE SPRINKLE) capsule 125 mg 125 mg, Oral, 3 times daily, First dose on Fri02/16/20 at 2315, Until Discontinued, Do not break, chew, or crush. HAZARDOUS MEDICATION Given 02/19/2020 8:13 AM CDT 125 mg Given 02/18/2020 9:24 PM CDT 125 mg Given 02/18/2020 4:03 PM CDT 125 mg enoxaparin (LOVENOX) 40 MG/0.4ML syringe 40 mg 40 mg, Subcutaneous, Every 24 hours scheduled (Daily), First dose on Fri02/18/20 at 1600, Until Discontinued, Administer by deep SubQ injection alternating between the left or right anterolateral and left or right posterolateral abdominal wall. Given 02/19/2020 8:13 AM CDT 40 mg Right Lower Abdomen Given 02/18/2020 4:03 PM CDT 40 mg Ri ght Lower Abdomen famotidine (PEPCID) injection 20 mg 20 mg, Intravenous, Daily, First dose (after last modification) on Yara 02/17/20 at 0900, Until Discontinued, Give if unable to take PO. Renally adjusted for CrCl <50ml/min IV Push over 2 minutes Given 02/17/2020 9:47 AM CDT 20 mg famotidine (PEPCID) tablet 20 mg 20 mg, Oral, Daily, First dose (after last modification) on Fri02/17/20 at 0900, Until Discontinued, Renally adjusted for CrCl <50ml/min Given 02/19/2020 8:13 AM CDT 20 mg Given 02/18/2020 8:55 AM CDT 20 mg ketorolac (TORADOL) injection 15 mg 15 mg, Intravenous, Every 6 hours PRN, Moderate pain (Scale 4 - 7), Starting on Yara 02/17/20 at 1901, Until 02/19/20 at 2108, For IV administration, give over 15 seconds. Given 02/18/2020 4:04 PM CDT 15 mg memantine (NAMENDA) tablet 10 mg 10 mg, Oral, 2 times daily, First dose on Fri02/16/20 at 2330, Until Discontinued Given 02/19/2020 8:13 AM CDT 10 mg Given 02/18/2020 9:24 PM CDT 10 mg Given 02/18/2020 8:55 AM CDT 10 mg risperiDONE (RisperDAL) tablet 1 mg 1 mg, Oral, 2 times daily, First dose on Fri02/16/20 at 2330, Until Discontinued, HAZARDOUS MEDICATION Given 02/19/2020 8:13 AM CDT 1 mg Given 02/18/2020 9:24 PM CDT 1 mg Given 02/18/2020 8:55 AM CDT 1 mg documented in this encounter Active and Recently Administered Medications Times are shown in CDT. Scheduled Medication Order 02/17/2020 02/18/2020 02/19/2020 ceFAZolin (ANCEF) 2 g in sodium chloride 0.9 % 100 mL IVPB (COMPLETED) 2 g, Intravenous, at 200 mL/hr, Once, 1 dose, On Yara 02/17/20 at 1500, preop only - in OR 1351 (OCT Hold - Provider: User Epic - Reason: Unreviewed Transfer Orders)1357 (New Bag - Provider: Brandy Arteaga CRNA)1400 (Bolus - Provider: Brandy Arteaga CRNA)1415 (Infusion Stop Time - Provider: Brandy Arteaga CRNA)1500 (Automatically Held - Provider: Adriel Mratines)1619 (OCT Unhold - Provider: User Epic) ceFAZolin (ANCEF) 2 g in sodium chloride 0.9 % 100 mL IVPB (COMPLETED) 2 g, Intravenous, at 200 mL/hr, Every 8 hours, 2 doses, First dose on Fri02/17/20 at 2200, Last dose on Fri02/18/20 at 0600 2241 (New Bag - Provider: Misti Barger RN)2311 (Infusion Stop Time - Provider: Misti Barger RN) 0624 (New Bag - Provider: Misti Barger RN)0654 (Infusion Stop Time - Provider: Misti Barger RN) divalproex DR sprinkle (DEPAKOTE SPRINKLE) capsule 125 mg 125 mg, Oral, 3 times daily, First dose on Fri02/16/20 at 2315, Until Discontinued, Do not break, chew, or crush. HAZARDOUS MEDICATION 0832 (Not Given - Provider: Honey Metcalf RN - Reason: NPO)1351 (OCT Hold - Provider: User Epic - Reason: Unreviewed Transfer Orders)1600 (Automatically Held - Provider: User Epic)1619 (OCT Unhold - Provider: User Epic)2200 (Given - Provider: Misti Barger RN) 0855 (Given - Provider: Arminda Dove RN)1603 (Given - Provider: Arminda Dove RN)2124 (Given - Provider: Tiff Tucker, RN) 0813 (Given - Provider: Arminda Dove, TRACIE)1600 (Canceled Entry - Provider: Automatic Discharge Provider - Comment: Automatically canceled at discontinue of medication order)2100 (Canceled Entry - Provider: Automatic Discharge Provider - Comment: Automatically canceled at discontinue of medication order) enoxaparin (LOVENOX) 40 MG/0.4ML syringe 40 mg 40 mg, Subcutaneous, Every 24 hours scheduled (Daily), First dose on Fri02/18/20 at 1600, Until Discontinued, Administer by deep SubQ injection alternating between the left or right anterolateral and left or right posterolateral abdominal wall. 1603 (Given - Provider: Arminda Dove RN) 0813 (Given - Provider: Arminda Dove RN) famotidine (PEPCID) injection 20 mg(Linked Group 1) 20 mg, Intravenous, Daily, First dose (after last modification) on Fri02/17/20 at 0900, Until Discontinued, Give if unable to take PO. Renally adjusted for CrCl <50ml/min IV Push over 2 minutes 0947 (Given - Provider: Honey Metcalf RN)1351 (OCT Hold - Provider: User [employer] / HangPic - Reason: Unreviewed Transfer Orders)1619 (OCT Unhold - Provider: User [employer] / [employer]) 0855 (See Alternative - Provider: Arminda Dove RN) 0813 (See Alternative - Provider: Arminda Dove RN) famotidine (PEPCID) tablet 20 mg(Linked Group 1) 20 mg, Oral, Daily, First dose (after last modification) on Fri02/17/20 at 0900, Until Discontinued, Renally adjusted for CrCl <50ml/min 0947 (See Alternative - Provider: Honey Metcalf RN)1351 (OCT Hold - Provider: User [employer] / [employer] - Reason: Unreviewed Transfer Orders)1619 (OCT Unhold - Provider: User [employer] / [employer]) 0855 (Given - Provider: Arminda Dove RN) 0813 (Given - Provider: Arminda Dove RN) memantine (NAMENDA) tablet 10 mg 10 mg, Oral, 2 times daily, First dose on Fri02/16/20 at 2330, Until Discontinued 0832 (Not Given - Provider: Honey Metcalf RN - Reason: NPO)1351 (OCT Hold - Provider: User Epic - Reason: Unreviewed Transfer Orders)1619 (OCT Unhold - Provider: User Epic)2200 (Given - Provider: Misti Barger RN) 0855 (Given - Provider: Arminda Dove RN)2124 (Given - Provider: Tiff Tucker, TRACIE) 0813 (Given - Provider: Arminda Dove RN)2100 (Canceled Entry - Provider: Automatic Discharge Provider - Comment: Automatically canceled at discontinue of medication order) risperiDONE (RisperDAL) tablet 1 mg 1 mg, Oral, 2 times daily, First dose on Fri02/16/20 at 2330, Until Discontinued, HAZARDOUS MEDICATION 0832 (Not Given - Provider: Honey Metcalf RN - Reason: NPO)1351 ([facility] Hold - Provider: User Epic - Reason: Unreviewed Transfer Orders)1619 ([facility] Unhold - Provider: User Epic)2200 (Given - Provider: Misti Barger RN) 0855 (Given - Provider: Arminda Dove RN)2124 (Given - Provider: Tiff Tucker RN) 0813 (Given - Provider: Arminda Dove RN)2100 (Canceled Entry - Provider: Automatic Discharge Provider - Comment: Automatically canceled at discontinue of medication order) tranexamic acid (CYKLOKAPRON) 1,000 mg in sodium chloride 0.9 % 50 mL 1,000 mg, Intravenous, Administer over 30 Minutes, Once, 1 dose, On Yara 02/17/20 at 1500, To be given in the OR only - just prior to incision 1351 ([facility] Hold - Provider: User Epic - Reason: Unreviewed Transfer Orders)1500 (Automatically Held - Provider: User Epic)1619 (OCT Unhold - Provider: User Epic) Continuous Medication Order 02/17/2020 02/18/2020 02/19/2020 0.9 % NaCl with KCl 20 mEq infusion at 75 mL/hr, Intravenous, Continuous, Starting on Yara 02/17/20 at 1215, Until 02/19/20 at 2108 1300 (Hold - Provider: Honey Metcalf RN - Reason: Transfer to a Procedural area)1351 (OCT Hold - Provider: User Epic - Reason: Unreviewed Transfer Orders)1619 (OCT Unhold - Provider: User Epic)1726 (New Bag - Provider: Honey Metcalf RN) 0542 (Infusion Stop Time - Provider: Misti Barger, TRACIE)0543 (New Bag - Provider: Misti Barger, RN)1942 (New Bag - Provider: Arminda Dove, TRACIE) PRN Medication Order 02/17/2020 02/18/2020 02/19/2020 acetaminophen (TYLENOL) tablet 650 mg 650 mg, Oral, Every 4 hours PRN, Mild pain (Scale 1 - 3), Headaches, Fever, Starting on 02/16/20 at 2306, Until 02/19/20 at 2108, Maximum dose of acetaminophen is 4000 mg from all sources in 24 hours. 1351 (OCT Hold - Provider: User Epic - Reason: Unreviewed Transfer Orders)1619 (OCT Unhold - Provider: User Epic) 0543 (Given - Provider: Misti Barger RN)1019 (Given - Provider: Arminda Dove RN) ketorolac (TORADOL) injection 15 mg 15 mg, Intravenous, Every 6 hours PRN, Moderate pain (Scale 4 - 7), Starting on Yara 02/17/20 at 1901, Until 02/19/20 at 2108, For IV administration, give over 15 seconds. 1604 (Given - Provider: Arminda Dove, TRACIE) ondansetron (ZOFRAN) injection 4 mg 4 mg, Intravenous, Every 8 hours PRN, Nausea, Vomiting, Starting on 02/16/20 at 2306, Until 02/19/20 at 2108, IV push over 2-5 minutes. 1351 (OCT Hold - Provider: User Epic - Reason: Unreviewed Transfer Orders)1619 (OCT Unhold - Provider: User Epic) Linked Groups Order Group 1: famotidine (PEPCID) injection 20 mgJump to med 20 mg, Intravenous, Daily, First dose (after last modification) on Yara 02/17/20 at 0900, Until Discontinued, Give if unable to take PO. Renally adjusted for CrCl <50ml/min IV Push over 2 minutes Or famotidine (PEPCID) tablet 20 mgJump to med 20 mg, Oral, Daily, First dose (after last modification) on Yara 02/17/20 at 0900, Until Discontinued, Renally adjusted for CrCl <50ml/min documented in this encounter Care Teams Registration Manager Relationship Specialty Start Date End Date Ramirez Gibson MD PCP - General FAMILY PRACTICE 03/08/19 documented as of this encounter
--- OUTSIDE RECORDS SUMMARY | 2024-08-11 01:39 | XMS_ITS | Encounter Summary ---
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 clear. No interstitial edema, pleural fluid, or pneumothorax.No acute bone findings. Mild scoliosis. IMPRESSION: No acute findings. Interpreted By: Oli Murrell MD, 2019 7:36 PM [facility] Final Resul t * CT CERV SPINE WO CON (2019 7:06 PM CDT) Anatomical Region Laterality Modality Spine Computed Tomogra phy 2019 7:31 PM CDT Impressions 2019 7:35 PM CDT IMPRESSION: 1. ??No acute bone findings. 2. ??Indeterminate findings in the upper lobes. A dose lowering technique was used for this procedure, which may include, but is not limited to, dose reduction technique, automated exposure control, iterative reconstruction, ALARA (As Low As Reasonably Achievable), or Image Gently techniques. Interpreted By: Oli Murrell MD, 2019 7:31 PM Narrative 2019 7:35 PM CDT EXAM: CT CERV SPINE WO CON DATE: 2019 COMPARISON: None INDICATION: Fell TECHNIQUE: Noncontrast imaging FINDINGS: Straightening of the cervical spine could be positioning or muscle spasm. ??No prevertebral soft tissue swelling. ??No fracture or malalignment. ??Degenerative disc disease C6-7 with decreased disc height and small anterior and posterior osteophytes. ??No paraspinal soft tissue abnormality. ??Soft tissue calcifications probably associated with the carotid arteries. ??Indeterminant findings in the lung apices are probably a combination of pleural and parenchymal fibrosis. ??Small nodular structure in the right apex measures about 9 mm. Procedure Note Oli Murrell MD - 2019 EXAM: CT CERV SPINE WO CON DATE: 2019 COMPARISON: None INDICATION: Fell TECHNIQUE: Noncontrast imaging FINDINGS: Straightening of the cervical spine could be positioning ormuscle spasm. No prevertebral soft tissue swelling. No fracture ormalalignment. Degenerative disc disease C6-7 with decreased disc heightand small anterior and posterior osteophytes. No paraspinal soft tissueabnormality. Soft tissue calcifications probably associated with thecarotid arteries. Indeterminant findings in the lung apices are probablya combination of pleural and parenchymal fibrosis. Small nodularstructure in the right apex measures about 9 mm. IMPRESSION: 1. No acute bone findings. 2. Indeterminate findings in the upper lobes. A dose lowering technique was used for this procedure, which may include,but is not limited to, dose reduction technique, automated exposurecontrol, iterative reconstruction, ALARA (As Low As ReasonablyAchievable), or Image Gently techniques. Interpreted By: Oli Murrell MD, 2019 7:[address] Final Resul t * CT HEAD WO CON (2019 7:06 PM CDT) Anatomical Region Laterality Modality Head Computed Tomogra phy 2019 7:22 PM CDT Impressions 2019 7:29 PM CDT IMPRESSION: 1. ??No acute hemorrhage or mass effect. 2. ??Multiple other abnormalities are likely chronic. A dose lowering technique was used for this procedure, which may include, but is not limited to, dose reduction technique, automated exposure control, iterative reconstruction, ALARA (As Low As Reasonably Achievable), or Image Gently techniques. Interpreted By: Oli Murrell MD, 2019 7:22 PM Narrative 2019 7:29 PM CDT EXAM: CT HEAD WO CON DATE: 2019 COMPARISON: None INDICATION: Fell, confusion. TECHNIQUE: Noncontrast imaging FINDINGS: No hemorrhage, mass effect, or extra-axial fluid collection. ??Low density regions in the deep white matter, basal ganglia, and left thalamus probably represent a combination of old lacunar stroke and patchy small vessel disease. ??Mild colpocephaly configuration of the lateral ventricles with mild reduced brain volume adjacent to the ventricles. ??This can be a congenital appearance. ??Dense calcifications in the cavernous internal carotid arteries. ??No acute bone findings. ??Mastoid air cells are clear. ??Near complete opacification of the left sphenoid chamber with mixed density debris. ??Possible hyperdense or partially calcified secretions versus fungal infection component. Procedure Note Oli Murrell MD - 2019 EXAM: CT HEAD WO CON DATE: 2019 COMPARISON: None INDICATION: Fell, confusion. TECHNIQUE: Noncontrast imaging FINDINGS: No hemorrhage, mass effect, or extra-axial fluid collection.Low density regions in the deep white matter, basal ganglia, and leftthalamus probably represent a combination of old lacunar stroke and patchysmall vessel disease. Mild colpocephaly configuration of the lateralventricles with mild reduced brain volume adjacent to the ventricles.This can be a congenital appearance. Dense calcifications in thecavernous internal carotid arteries. No acute bone findings. Mastoid aircells are clear. Near complete opacification of the left sphenoid chamberwith mixed density debris. Possible hyperdense or partially calcifiedsecretions versus fungal infection component. IMPRESSION: 1. No acute hemorrhage or mass effect. 2. Multiple other abnormalities are likely chronic. A dose lowering technique was used for this procedure, which may include,but is not limited to, dose reduction technique, automated exposurecontrol, iterative reconstruction, ALARA (As Low As ReasonablyAchievable), or Image Gently techniques. Interpreted By: Oli Murrell MD, 2019 7:[address] Final Resul t documented in this encounter Visit Diagnoses Diagnosis Closed nondisplaced fracture of left calcaneus, unspecified portion of calcaneus, initial encounter- Primary Fall, initial encounter History of dementia Hypokalemia Hypopotassemia documented in this encounter Administered Medications Inactive Administered Medications - up to 3 most recent administrations Medication Order MAR Action Action Date Dose Rate Site ketorolac (TORADOL) injection 15 mg 15 mg, Intravenous, Once, 1 dose, On Fri03/08/19 at 2130, For IV administration, give over 15 seconds. Given 2019 9:52 PM CDT 15 mg sodium chloride 0.9% bolus infusion SOLN 1,000 mL 1,000 mL, Intravenous, Administer over 15 Minutes, Bolus (Once), 1 dose, On Fri03/08/19 at 2130 New Bag 2019 9:52 PM CDT 1,000 mLs documented in this encounter Active and Recently Administered Medications Times are shown in CDT. Scheduled Medication Order 03/06/2019 03/07/2019 2019 ketorolac (TORADOL) injection 15 mg (COMPLETED) 15 mg, Intravenous, Once, 1 dose, On Fri03/08/19 at 2130, For IV administration, give over 15 seconds. 215 (Given - Provid er: Rosalina Ruiz RN) potassium chloride 20 MEQ/15ML (10%) solution 40 mEq 40 mEq, Oral, Once, 1 dose, On Fri03/08/19 at 2245, Dilute with 240 mL water or juice. 2304 (Not Given - Pr ovider: Rosalina Ruiz RN - Reason: Patient/family declined - Comment: pt refusing to drink medication) sodium chloride 0.9% bolus infusion SOLN 1,000 mL (COMPLETED) 1,000 mL, Intravenous, Administer over 15 Minutes, Bolus (Once), 1 dose, On Fri03/08/19 at 2130 2152 (New Bag - Prov ider: Rosalina Ruiz RN)2355 (Infusion Stop Time - Provider: Rosalina Ruiz RN) documented in this encounter Care Teams Sizing Machine Tender Relationship Specialty Start Date End Date Ramirez Gibson MD PCP - General FAMILY PRACTICE 03/08/19 documented as of this encounter
--- OUTSIDE RECORDS SUMMARY | 2024-08-11 01:39 | XMS_ITS | Encounter Summary ---
Author Organization [facility] Address [address] [place] [address]. [place], [place] [id number] [place] [id number] Care Team Providers Care Ceramics Technician Name Role Phone Ramirez Gibson MD Primary Care Provider [phone] Reason for Referral * (Routine) - Canceled Specialty Diagnoses / Procedures Referred By Contac t Referred To Contact Procedures PT eval and treat Garfield Pepper MD Phone: tel: fax: Referral ID Status Reason Start Date Expiration Date V isits Requested Visits Authorized [id number] Canceled 02/17/2020 03/18/2021 1 1 * Surgical (Routine) - Closed Specialty Diagnoses / Procedures Referred By Contac t Referred To Contact Procedures Case request operating room: ARTHROPLASTY HIP ROMEO Garfield Pepper MD Phone: tel: fax: Referral ID Status Reason Start Date Expiration Date Visits Re quested Visits Authorized [id number] Closed 02/17/2020 03/18/2021 1 1 Reason for Visit * Reason Comments Fall Left hip fracture pe [place] from [place] * Auth/Cert Specialty Diagnoses / Procedures Referred By Contac t Referred To Contact Diagnoses Hip fx, left, closed, initial encounter (CMS/HCC HHS/HCC) Hip fracture (CMS/[facility]) Procedures NA Referral ID Status Reason Start Date Expiration Date Visits Re quested Visits Authorized [id number] 1 1 Encounter Details Date Type Department Care Team (Late st Contact Info) Description 02/16/2020 8:42 PM CDT - 02/19/2020 7:00 PM CDT Hospital Encounter [facility] Med/Surg [address] [place] [address] Segun Devine MD [address] [facility] [address] Asha Eckert MD 1 [place] [address] [phone] (Work) Tramaine Gonzalez MD [facility] [place] [address] [phone] (Work) Fall (Left hip fracture per [place]ays from [place]) Discharge Disposition: Retirement Facility Social History Tobacco Use Types Packs/Day Years [...] Sign Reading Time Taken Comments Blood Pressure 120/75 02/19/2020 2:42 PM CDT Pulse 73 02/19/2020 2:42 PM CDT Temperature 36.8 ??C (98.2 ??F) 02/19/2020 2:42 PM CD T Respiratory Rate 18 02/19/2020 2:42 PM CDT Oxygen Saturation 96% 02/19/2020 2:42 PM CDT Inhaled Oxygen Concentration - - [...] Date Author Status Yes 02/16/2020 11:58 PM CDT Ange John RN Active documented in this encounter Discharge Summaries * Tramaine Gonzalez MD - 02/19/2020 11:00 AM CDT Hospitalist Discharge Summary Patient ID: Diane Kline. female. 1950. Admit date: 02/16/2020 8:42 PM Discharge date and time: 02/19/20 Admitting Physician: Asha Eckert MD Attending Physician: Tramaine Gonzalez MD Primary Care Physician: RAMIREZ GIBSON MD Discharge Physician: TRAMAINE GONZALEZ MD Hospital Diagnosis: Hip fracture ([facility]) Procedures: 02/17/20 - L hip hemiarthroplasty Discharged Condition: Good Code Status: Full Code Indication for Admission: Chief Complaint Patient presents with ??? Fall Left hip fracture per [place] from [place] History of Present Illness: Diane Kline is [...] of 02/16/20 ECG 12 lead ?? Narrative ?[place] ?[address] [place] ?Te st Date: ?2020-02-16 Pat Name: ?DIANE BROWN ?Department: ?Room: ?[id number] Gender: ?Female ?Feed Adviser: ?VB : ?1950 ?Requested By: SEGUN PETER Order Number: [id number] ?Reading MD: ?Measurements Intervals ?[place] ? Rate: ?72 ?P: ?81 TX: ?211 ?QRS: ?72 QRSD: ?86 ?T: ?79 QT: ?406 ? QTc: ?445 ?Interpretive Statements SINUS RHYTHM WITH FIRST DEGREE AV BLOCK Compared to ECG 2019 21:09:40 First degree AV block now present Discharge Exam: Filed Vitals: 02/18/20 1117 02/18/20 1429 02/18/20 1924 02/19/20 0353 BP: 132/73 (!) 150/97 132/58 107/67 Pulse: 92 97 94 50 Resp: 21 22 20 20 Temp: 98.6 ??F (37 ??C) 98.8 ??F [...] tablet ?? enoxaparin 40 MG/0.4ML Soln Disposition: Retirement Facility Time Spent on Discharge: Greater than [...] times daily. Cholecalciferol (VITAMIN D3) 50 MCG (2000 UT) Tab Take 1 tablet (2,000 Units total) by mouth daily. risperiDONE 1 MG tablet Take 1 tablet (1 mg total) by mouth 2 (two) times daily. enoxaparin 40 MG/0.4ML Solution Inject 0.4 mLs (40 mg total) into the skin daily for 29 days. 11.6 mL 02/20/2020 03/20/2020 documented as of this encounter Progress Notes * Yarelis Nation LCSW - 02/19/2020 7:00 PM CDT PT WAS DC ON THE TO [facility] HAD BEEN PLANNED. THE NH [...] REQUIRED. PT ANTICIPATED TO HAVE TRAVELED BY [facility] BUT SW WAS NOT IN HOUSE AND DID NOT ARRANGE. NO NEW PRESCREEN REQUIRED TO RETURN TO THE NH. SW HAD LEFT NUMBERS TO CALL REPORT AND FAX DC INSTRUCTIONS. RN AWARE OF PLANS AND SW ACTIONS. NO FURTHER NEEDS NOTED. SW COMPLETE AND CASE CLOSED. 02/22/20 2852 Discharge Planning Support Systems Children Type of Residence detention Assistance Needed Yes Patient expects to be discharged to: Snf * Beverly Alston PTA - 02/19/2020 12:16 PM CDT 02/19/20 7171 Therapy Visit Ordering Provider Ajith Clayton Room [...] SENT TO NH WITH PATIENT Patient/Family Training Exercise Program x Recommendation PT Recommendation PT during Hospitalization;PT at Retirement Facility Plan PT Treatments/Interventions Therapeutic Exercises;Therapeutic Activities [...] CONFIRMED PLANS FOR PT TO RETURN TO [facility] UPON DC. PT IS FROM THIS FACILITY. PT CAN RETURN ON THE WEEKEND. CALL ALYSE TO NOTIFY OF DC AT [phone] WITH ADMISSIONS. CALL REPORT TO [phone] AND FAX DC INSTRUCTION TO [phone] AND DTR KG AT [phone]. PT INSURED WITH MEDICARE SUCH THAT WITH HER INS AMB OK FOR EITHER [facility] OR [facility]. PER ROUNDS PT IS LIKELY TO BE READY FOR DC ON THE WEEKEND. VERBAL INFORMATION REGARDING IMPORTANT MESSAGE FROM MEDICARE PROVIDED TO PATIENT ADVERTISEMENT DISTRIBUTOR SLIM PT IS CONFUSED. . EDUCATION PROVIDED [...] Net 839 ml Medication ??? divalproex DR ritale 125 mg Oral TID ??? famotidine 20 mg Intravenous Daily Or ??? famotidine 20 mg Oral Daily ??? memantine 10 mg Oral BID ??? risperiDONE 1 mg Oral BID ??? tranexamic acid (CYLOKAPRON) IVPB 1,000 mg Intravenous Once ??? 0.9 % NaCl with KCl 20 mEq 75 mL/hr (02/18/20 9584) PRN Meds: acetaminophen, ketorolac, ondansetron Labs: Recent [...] 02/16/20 ECG 12 lead ?? Narrative ?? [facility] Test Date: 2020-02-16 Pat Name: DIANE KLINE Department: Room: [place] [address] Gender: Female Feed Adviser: FIOR : 1950 Requested By: SEGUN DEVINE Order Number: [id number] Reading MD: Measurements Intervals [place] Rate: 72 P: 81 TX: 211 QRS: 72 QRSD: 86 T: 79 [...] Home Living Type of Home Other (Comment) ([place] - [facility] CARE) Prior Function Fall History [...] LEFT AT BEDSIDE TO BE SENT TO [place] WITH PATIENT Patient/Family Training Bed Mobility X [...] Recommendation PT Recommendation PT during Hospitalization;PT at Retirement Facility Plan PT Treatments/Interventions Therapeutic Exercises;Therapeutic Activities [...] dry, moves foot up and down Assessment [id number] s/p L hip hemiarthroplasty on 02/16/2020 Plan [...] given the difficulty of transporting the patient. [facility], [place] [address] [place] [address] GARFIELD PEPPER MD Filed Vitals: 02/17/20219902/17/20 2337 02/18/20 0430 02/18/20626 BP: 137/66 136/72 135/76 Pulse: 82 84 120 Resp: Temp: 101.5 ??F (38.6 ??C) 99.7 ??F (37.6 ??C) TempSrc: Oral Oral SpO2: 99% 99% 99% Weight: Height: ??? divalproex DR cartwright 125 mg Oral TID ??? famotidine 20 mg Intravenous Daily Or ??? famotidine 20 mg Oral Daily ??? memantine 10 mg Oral BID ??? risperiDONE 1 mg Oral BID ??? tranexamic acid (CYLOKAPRON) IVPB 1,000 mg Intravenous Once ??? 0.9 % NaCl with KCl 20 mEq 75 mL/hr (02/18/20 0543) acetaminophen, ketorolac, ondansetron Recent Labs Lab 02/16/20205202/17/20 0440 WBC 13.8* 11.5* RBC 4.13* 3.86* [...] remained clean, dry, and intact during shift. BOARD OF EDUCATION SECRETARY notified this RN that patient had a [...] for Falls/Injury Outcome: Not Progressing Informed by [facility] that patient can be impulsive. Patient at [...] Outcome: Progressing Planning to send back to [facility] [place] Problem: Pain control/comfort Goal: Promote pain control/comfort Outcome: Progressing Patient appears to be resting comfortably this shift. Dr. Gonzalez notified that patient clenches herjaw shut and will not swallow food or pills. SBP has risen to the 160's. Patient's daughter, Kg, is requesting IVP toradol if needed. Dr. Gonzalez has agreed to this. HONEY METCALF RN * Yarelis Kaylin Nation, [facility] - 02/17/2020 4:18 PM CDT PT IS A 69 YR OLD FEMALE ADMITTED FROM [facility] WHERE SHE IS REPORTED TO BE A LONG TERMRESIDENT. PT IS AT BASELINE CONFUSED PER THE NURSING TEAM. PT IS TO SURGERY TODAY FOR A HIP FRACTURE. PT IS UNABLE TO PROVIDE INFORMATION BUT SW WILL FOLLOW UP WITH HER DTR MARISELA KLINE TOMORROW FOLLOWING SURGERY TO CONFIRM INFORMATION OBTAINED FROM STAFF AND REGARDING PLANS FOR RETURN TO THE [place]. 02/17/20 5276 Referral Data Referral Reason Discharge Planning Source of Information Chart review (STAFF) Patient Information Primary Caregiver ([place] STAFF) Support System Immediate family Baseline ADL's Functional Status Minimum assistance;Moderate assistance Type of Residence detention Ambulation Assistance Yes Bathing/Grooming Assistance Yes Dressing [...] Plan Support Systems Children Type of Residence detention Assistance Needed Yes Patient expects to be discharged to: Snf * Tramaine Gonzalez MD - 02/17/2020 11:54 [...] 2 g Intravenous Once ??? divalproex DR cartwright 125 mg Oral TID ??? famotidine 20 [...] 02/16/20 ECG 12 lead ?? Narrative ?? [facility] [address] Test Date: 2020-02-16 Pat Name: DIANE KLINE Department: Room: [id number] Gender: Female Feed Adviser: FIOR : 1950 Requested By: SEGUN DEVINE Order Number: [id number] Reading MD: Measurements Intervals [place] Rate: 72 P: 81 TX: 211 QRS: 72 QRSD: 86 T: 79 [...] >428 mL in bladder. Physician notified. 16 Vietnamese Frazier inserted this shift. documented in this [...] at baseline, patient presenting from nursing facility wherepatient is at the memory unit, per ER note patient was getting dressed and had both legs and pants and she stood up and fell landed on her left side, x-ray was obtained and showed left hip fracture so patient was transferred to our facility, in the ER patient was evaluated, Ortho were consulted andpatient get admitted for further evaluation and treatment. Allergy No Known Allergies Medication list (Not in a hospital admission) No current facility-administered medications on file prior to encounter. Current Outpatient Medications on File Prior to Encounter Medication Sig Dispense Refill ??? Cholecalciferol (VITAMIN D3) 50 MCG (1999) Tab Take 2,000 Units by mouth daily. [...] file Gets together: Not on file Attends temple service: Not on file Active member of [...] No results for input(s): PH, PCO2, PO2, [id number], BICARBWB, BASEDEFICIT, BASEEXCESS in the [id number] hours. Imagining & Other Studies Xr Chest Portable Result Date: 02/16/2020 IMPRESSION: No acute chest disease identified. Results for orders placed or performed during the hospital encounter of 02/16/20 ECG [address] [facility] [facility] [address] [place] [address] Test Date: 2020-02-16 Pat Name: DIANE KLINE Department: Room: [place] [address] Gender: Female Feed Adviser: FIOR : 1950 Requested By: SEGUN DEVINE Order Number: [id number] Reading MD: Measurements Intervals [place] Rate: 72 P: 81 TX: 211 QRS: 72 QRSD: 86 T: 79 [...] femoral neck fracture. She lives in a longterm. History is obtained from her daughter, Kg. Patient has dementia and is nonverbal. She is able to walk and, in fact, they have had trouble getting her to stop walking. This is improved somewhat as she has been transition to a memory care unit. She fell yesterday while at the longterm. Past Medical History: Diagnosis Date ??? Atherosclerosis [...] file Gets together: Not on file Attends temple service: Not on file Active member of [...] on regular diet with finger foods at [facility]. ANGE JOHN RN documented in this encounter OR Notes * Op Note - Garfield Pepper MD - 02/18/2020 12:00 AM CDT SURGEON: Garfield Pepper MD CRYSTAL INSPECTOR: JON Connor PREOPERATIVE DIAGNOSIS: Left femoral neck [...] transitioned to recovery room in stable condition. #[id number] /NTS * Brief Op Note - Garfield Pepper MD - 02/17/2020 4:03 PM CDT ARTHROPLASTY HIP ROMEO ANTERIOR APPROACH Procedure Note Diane Kline 02/16/2020 - 02/17/2020 1525 Procedure(s) (LRB): ARTHROPLASTY HIP ROMEO ANTERIOR APPROACH (Left) Surgeon(s): Garfield Pepper MD Staff: Appointment Clerk: JON Doll; JON Ramos Relief Circulating Nurse: Peg Woods RN Circulating Nurse 1: Madeline Delgadillo RN Scrub Person 1: Obdulio Cruz, MATERIALS CLERK Scrub Person 2: Tony Hart CST Anesthesia: Spinal Anesthesiologist: Eros Sterling MD; Consuelo Coronado MD CHAUFFEUR: Sharon Coronado CRNA; Brandy Arteaga CRNA Pre-Op [...] Fall Left hip fracture per [place] from [place] History of Present Illness The patient is a very pleasant 69-year-old female examined the emergency department. She presents today with left hip pain. The patient is nonverbal at baseline and presents from a long-term care facility. According to longterm staff, the patient was getting dressed and [...] ??? Dementia (CMS/HCC) ??? Glaucoma ??? Seizures (CMS/[facility]) PAST SURGICAL HISTORY: No past surgical history [...] encounter of 02/16/20 ECG 12 lead Narrative [address] Test Date: 2020-02-16 Pat Name: DIANE KLINE Department: Room: [facility] Gender: Female Feed Adviser: FIOR : 1950 Requested By: SEGUN DEVINE Order Number: [id number] Reading MD: Yazan Watkins Measurements Intervals [place] Rate: 72 P: 81 TX: 211 QRS: 72 QRSD: 86 T: 79 [...] HIP LAT LT Final Result by User, [id number] (02/16 1700) Examination: AP pelvis and left [...] HIP LT 1V Final Result by User, [id number] (02/16 2074) Examination: Intraoperative fluoroscopy Exam date/time: 02/17/2020 3:46 [...] OR 2 VIEWS Final Result by User, [id number] (02/16 2224) Examination: XR PELVIS 1 OR 2 [...] HIP LT 2V Final Result by User, [id number] (02/15 2209) Examination: XR HIP LT 2V [...] XR CHEST PORTABLE Final Result by User, [email or web address] (02/15 2110) Examination: XR CHEST PORTABLE Exam [...] Impression Hip fx, left, closed, initial encounter ([facility]) (Primary) Disposition: Admit Segun Devine MD 02/20/20 0559 * Marlys Mireles RN - 02/16/2020 8:42 PM CDT Bed: 09 Expected date: Expected time: Means of arrival: Comments: [id number] * Grecia Hamm RN - 02/16/2020 8:35 PM CDT EMS from [facility], Pt fell this morning, pt was getting [...] BASIC METABOLIC PANEL (02/19/2020 5:31 AM CDT) GLUCOSE 77 70 - 99 MG/DL 02/19/2020 6:24 AM CDT [facility] BUN 12 7 - 18 MG/DL 02/19/2020 6:24 AM CDT [facility] CREATININE S/P/B 0.63 0.55 - 1.02 MG/DL 02/19/2020 6:24 AM CDT [facility] SODIUM S/P/B 139 136 - 145 MMOL/L 02/19/2020 6:24 AM CDT [facility] POTASSIUM S/P/B 4.1 3.5 - 5.1 MMOL/L 02/19/2020 6:24 AM CDT [facility] CHLORIDE S/P/B 110(H) 100 - 108 MMOL/L 02/19/2020 6:24 AM CDT [facility] CO2 27.3 21 - 32 MMOL/L 02/19/2020 6:24 AM CDT [facility] CALCIUM S/P/B 8.9 8.5 - 10.1 MG/DL 02/19/2020 6:24 AM CDT [facility] ANION GAP 1.7(L) 5 - 15 MMOL/L 02/19/2020 6:24 AM CDT [facility] BUN CREATININE RATIO 19.0 6 - 02/19/2020 6:24 AM CDT [facility] EGFR NON-AFR. AMER. >90 >90 ML/MIN/1.7 3 M2 02/19/2020 6:24 AM CDT [facility] EGFR AFR. AMER. >90 >90 ML/MIN/1.7 3 M2 02/19/2020 6:24 AM T [facility] Comment: NOTE: eGFR is not calculated for patients <18 years of age. This is an estimated GFR (CKD EPI) and should not be used for calculating drug doses. 02/19/2020 5:31 AM CDT us Tramaine Gonzalez MD LABORATORY Final Result [facility] [address] [place] [address], [place] [phone] * (ABNORMAL) CBC W/DIFF AUTOMATED (02/19/2020 5:31 AM CDT) [facility] WBC 8.5 4.5 - 11.0 x10'3/uL 02/19/2020 5:54 AM CDT [facility] RBC 3.56(L) 4.20 - 5.40 x10'6/uL 02/19/2020 5:54 AM CDT [facility] HGB 11.2(L) 12.0 - 16.0 G/DL 02/19/2020 5:54 AM CDT [facility] HCT 33.6(L) 38.0 - 48.0 % 02/19/2020 5:54 AM CDT [facility] MCV 94.4(H) 80.0 - 94.0 FL 02/19/2020 5:54 AM CDT [facility] MCH 31.5(H) 27.0 - 31.0 PG 02/19/2020 5:54 AM CDT [facility] MCHC 33.3 32.0 - 36.0 G/DL 02/19/2020 5:54 AM CDT [facility] RDW 13.2 11.5 - 14.5 % 02/19/2020 5:54 AM CDT [facility] PLT 172 130 - 400 x10'3/uL 02/19/2020 5:54 AM CDT [facility] MPV 10.4 9.3 - 12.2 FL 02/19/2020 5:54 AM CDT [facility] DIFFERENTIAL TYPE AUTOMATED DIFFERENTIAL 02/19/2020 5:54 AM CDT [facility] NEUTROPHILS % 71.7 % 02/19/2020 5:54 AM CDT [facility] LYMPHOCYTES % 12.4 % 02/19/2020 5:54 AM CDT [facility] MONOCYTES % 14.7 % 02/19/2020 5:54 AM CDT [facility] EOSINOPHILS 0.4 % 02/19/2020 5:54 AM CDT [facility] BASOPHILS 0.2 % 02/19/2020 5:54 AM CDT [facility] IMMATURE GRANS % 0.6 % 02/19/20 20 5:54 AM CDT [facility] ABS. NEUTROPHILS TOTAL 6.08 1.80 - 7.70 x10'3/uL 02/19/2020 5:54 AM CDT [facility] ABS. LYMPHOCYTES 1.05 1.00 - 4.80 x10'3/uL 02/19/2020 5:54 AM CDT [facility] ABS. MONOCYTES 1.25(H) 0.24 - 0.86 x10'3/uL 02/19/2020 5:54 AM CDT [facility] ABS. EOSINOPHILS 0.03(L) 0.04 - 0.36 x10'3/uL 02/19/2020 5:54 AM CDT [facility] ABS. BASOPHILS 0.02 0.01 - 0.08 x10'3/uL 02/19/2020 5:54 AM CDT [facility] ABS. IMMATURE GRANULOCYTES 0.05 0.00 - 0.49 x10'3/uL 02/19/2020 5:54 AM CDT [facility] 02/19/2020 5:31 AM CDT us Tramaine Gonzalez MD LABORATORY Final Result [facility] [address] [place] [address], [place] [phone] * (ABNORMAL) BASIC METABOLIC PANEL (02/18/2020 9:23 AM CDT) [facility] GLUCOSE 102(H) 70 - 99 MG/DL 02/18/2020 10:26 AM T [facility] BUN 12 7 - 18 MG/DL 02/18/2020 10:26 AM T [facility] CREATININE S/P/B 0.90 0.55 - 1.02 MG/DL 02/18/2020 10:26 AM T [facility] SODIUM S/P/B 136 136 - 145 MMOL/L 02/18/2020 10:26 AM T [facility] POTASSIUM S/P/B 4.3 3.5 - 5.1 MMOL/L 02/18/2020 10:26 AM T [facility] CHLORIDE S/P/B 109(H) 100 - 108 MMOL/L 02/18/2020 10:26 AM T [facility] CO2 22.0 21 - 32 MMOL/L 02/18/2020 10:26 AM T [facility] CALCIUM S/P/B 9.1 8.5 - 10.1 MG/DL 02/18/2020 10:26 AM [facility] ANION GAP 5.0 5 - 15 MMOL/L 02/18/2020 10:26 AM T [facility] BUN CREATININE RATIO 13.4 6 - 26 02/18/2020 10:26 AM T [facility] EGFR NON-AFR. AMER. 66(L) >90 ML/MIN/1.7 3 M2 02/18/2020 10:26 AM T [facility] EGFR AFR. AMER. 76(L) >90 ML/MIN/1.7 3 M2 02/18/2020 10:26 AM [facility] Comment: NOTE: eGFR is not calculated for patients <18 years of age. This is an estimated GFR (CKD EPI) and should not be used for calculating drug doses. 02/18/2020 9:23 AM CDT Tramaine Gonzalez MD LABORATORY Final Result [facility] [address] [place] [address], [place] [phone] * (ABNORMAL) CBC W/DIFF AUTOMATED (02/18/2020 9:23 AM CDT) Pathologist [facility] WBC 11.6(H) 4.5 - 11.0 x10'3/uL 02/18/2020 11:53 AM CDT [facility] RBC 3.83(L) 4.20 - 5.40 x10'6/uL 02/18/2020 11:53 AM CDT [facility] HGB 11.8(L) 12.0 - 16.0 G/DL 02/18/2020 11:53 AM CDT [facility] HCT 36.8(L) 38.0 - 48.0 % 02/18/2020 11:53 AM CDT [facility] MCV 96.1(H) 80.0 - 94.0 FL 02/18/2020 11:53 AM CDT [facility] MCH 30.8 27.0 - 31.0 PG 02/18/2020 11:53 AM CDT [facility] MCHC 32.1 32.0 - 36.0 G/DL 02/18/2020 11:53 AM CDT [facility] RDW 13.2 11.5 - 14.5 % 02/18/2020 11:53 AM CDT [facility] PLT 210 130 - 400 x10'3/uL 02/18/2020 11:53 AM CDT [facility] MPV 10.7 9.3 - 12.2 FL 02/18/2020 11:53 AM CDT [facility] DIFFERENTIAL TYPE AUTOMATED DIFFERENTIAL 02/18/2020 11:53 AM CDT [facility] NEUTROPHILS % 81.5 % 02/18/2020 11:53 AM CDT [facility] LYMPHOCYTES % 9.1 % 02/18/2020 11:53 AM T [facility] MONOCYTES % 9.0 % 02/18/2020 11:53 AM CDT [facility] EOSINOPHILS 0.0 % 02/18/2020 11:53 AM CDT [facility] BASOPHILS 0.1 % 02/18/2020 11:53 AM T [facility] IMMATURE GRANS % 0.3 % 02/18/20 20 11:53 AM T [facility] ABS. NEUTROPHILS TOTAL 9.44(H) 1.80 - 7.70 x10'3/uL 02/18/2020 11:53 AM T [facility] ABS. LYMPHOCYTES 1.05 1.00 - 4.80 x10'3/uL 02/18/2020 11:53 AM [facility] ABS. MONOCYTES 1.04(H) 0.24 - 0.86 x10'3/uL 02/18/2020 11:53 AM [facility] ABS. EOSINOPHILS 0.00(L) 0.04 - 0.36 x10'3/uL 02/18/2020 11:53 AM T [facility] ABS. BASOPHILS 0.01 0.01 - 0.08 x10'3/uL 02/18/2020 11:53 AM [facility] ABS. IMMATURE GRANULOCYTES 0.03 0.00 - 0.49 x10'3/uL 02/18/2020 11:53 AM [facility] 02/18/2020 9:23 AM CDT Tramaine Gonzalez MD LABORATORY Final Result [facility] [address] [place] [address], [place] [phone] * XR PEL W HIP LAT LT [...] surgical control and localization of operative procedure. Garfield Pepper MD IMAGES ONLY Final Result * TYPE & SCREEN (02/17/2020 7:33 AM CDT) ABO/RH B POSITIVE 02/17/2020 8:50 AM CDT [facility] ANTIBODY SCREEN NEGATIVE 02/17/2020 8:50 AM CDT [facility] SAMPLE EXPIRATION 02/20/2020,2 359 02/17/2020 8:50 AM CDT [facility] 02/17/2020 7:33 AM CDT us Garfield Pepper MD BLOOD BANK TEST ORDERABLES F inal Result [facility] [address] [place] [address], [place] [phone] * (ABNORMAL) BASIC METABOLIC PANEL (02/17/2020 4:40 AM CDT) GLUCOSE 143(H) 70 - 99 MG/DL 02/17/2020 5:25 AM CDT [facility] BUN 14 7 - 18 MG/DL 02/17/2020 5:25 AM CDT [facility] CREATININE S/P/B 0.83 0.55 - 1.02 MG/DL 02/17/2020 5:25 AM CDT [facility] SODIUM S/P/B 137 136 - 145 MMOL/L 02/17/2020 5:25 AM CDT [facility] POTASSIUM S/P/B 3.9 3.5 - 5.1 MMOL/L 02/17/2020 5:25 AM CDT [facility] CHLORIDE S/P/B 107 100 - 108 MMOL/L 02/17/2020 5:25 AM CDT [facility] CO2 23.7 21 - 32 MMOL/L 02/17/2020 5:25 AM CDT [facility] CALCIUM S/P/B 9.5 8.5 - 10.1 MG/DL 02/17/2020 5:25 AM CDT [facility] ANION GAP 6.3 5 - 15 MMOL/L 02/17/2020 5:25 AM CDT [facility] BUN CREATININE RATIO 16.9 6 - 26 02/17/2020 5:25 AM CDT [facility] [facility] EGFR NON-AFR. AMER. 72(L) >90 ML/MIN/1.7 3 M2 02/17/2020 5:25 AM CDT [facility] EGFR AFR. AMER. 84(L) >90 ML/MIN/1.7 3 M2 02/17/2020 5:25 AM CDT [facility] Comment: NOTE: eGFR is not calculated for patients <18 years of age. This is an estimated GFR (CKD EPI) and should not be used for calculating drug doses. 02/17/2020 4:40 AM CDT Asha Eckert MD LABORATORY Final Resul t [facility] [address] [place] [address], [place] [phone] * MAGNESIUM (02/17/2020 4:40 AM CDT) MAGNESIUM 1.8 1.8 - 2.4 MG/DL 02/17/2020 5:25 AM CDT [facility] 02/17/2020 4:40 AM CDT Asha Eckert MD LABORATORY Final Resul t [facility] [address] [place] [address], [place] [phone] * PROTHROMBIN TIME, VENOUS (02/17/2020 4:40 AM CDT) PROTIME 11.2 9.6 - 12.2 SEC 02/17/2020 5:31 AM CDT [facility] INR 1.0 02/17/2020 5:31 AM CDT [facility] Comment: Recommended INR Therapeutic Goals: ??2.0-3.0 Routine Therapy ??2.5-3.5 Mechanical Prosthetic Valves (High Risk) ??3.0-4.0 Acute UT (to prevent Systemic Embolism) The INR is used only for patients on stable oral anticoagulant therapy. It makes no significant contribution to the diagnosis or treatment of patients whose Protime is prolonged for other reasons. 02/17/2020 4:40 AM CDT us Asha Eckert MD LABORATORY Final Resul t [facility] [address] [id number], * (ABNORMAL) CBC W/DIFF AUTOMATED (02/17/2020 4:40 AM CDT) WBC 11.5(H) 4.5 - 11.0 x10'3/uL 02/17/2020 6:48 AM CDT [facility] RBC 3.86(L) 4.20 - 5.40 x10'6/uL 02/17/2020 6:48 AM CDT [facility] HGB 11.8(L) 12.0 - 16.0 G/DL 02/17/2020 6:48 AM CDT [facility] HCT 35.9(L) 38.0 - 48.0 % 02/17/2020 6:48 AM CDT [facility] MCV 93.0 80.0 - 94.0 FL 02/17/2020 6:48 AM CDT [facility] MCH 30.6 27.0 - 31.0 PG 02/17/2020 6:48 AM CDT [facility] MCHC 32.9 32.0 - 36.0 G/DL 02/17/2020 6:48 AM CDT [facility] RDW 12.8 11.5 - 14.5 % 02/17/2020 6:48 AM CDT [facility] PLT 239 130 - 400 x10'3/uL 02/17/2020 6:48 AM CDT [facility] MPV 10.0 9.3 - 12.2 FL 02/17/2020 6:48 AM CDT [facility] DIFFERENTIAL TYPE AUTOMATED DIFFERENTIAL 02/17/2020 6:48 AM CDT [facility] NEUTROPHILS % 82.3 % 02/17/2020 6:48 AM CDT [facility] LYMPHOCYTES % 6.6 % 02/17/2020 6:48 AM CDT [facility] MONOCYTES % 10.6 % 02/17/2020 6:48 AM CDT [facility] EOSINOPHILS 0.0 % 02/17/2020 6:48 AM CDT [facility] BASOPHILS 0.2 % 02/17/2020 6:48 AM CDT [facility] IMMATURE GRANS % 0.3 % 02/17/20 20 6:48 AM CDT [facility] ABS. NEUTROPHILS TOTAL 9.43(H) 1.80 - 7.70 x10'3/uL 02/17/2020 6:48 AM CDT [facility] ABS. LYMPHOCYTES 0.76(L) 1.00 - 4.80 x10'3/uL 02/17/2020 6:48 AM CDT [facility] ABS. MONOCYTES 1.21(H) 0.24 - 0.86 x10'3/uL 02/17/2020 6:48 AM CDT [facility] ABS. EOSINOPHILS 0.00(L) 0.04 - 0.36 x10'3/uL 02/17/2020 6:48 AM CDT [facility] ABS. BASOPHILS 0.02 0.01 - 0.08 x10'3/uL 02/17/2020 6:48 AM CDT [facility] ABS. IMMATURE GRANULOCYTES 0.04 0.00 - 0.49 x10'3/uL 02/17/2020 6:48 AM CDT [facility] 02/17/2020 4:40 AM CDT us Asha Eckert MD LABORATORY Final Resul t [facility] [address] [place] [address], [place] [phone] * XR PELVIS 1 OR 2 VIEWS [...] By: Flash Guerrero MD, 02/16/2020 10:06 PM us Segun Devine MD GENERAL IMAGING Final Result * ECG 12 lead (02/16/2020 9:09 PM CDT) 02/16/2020 9:09 PM CDT Narrative [facility] RAD - 02/16/2020 10:25 PM CDT ?[facility] ? [address] [place] ? Test Date: ?2020-02-16 Pat Name: ? DIANE KLINE ? Department: ? Room: ? [facility] Gender: ? Female ? Feed Adviser: ?? VB : ?1950 ? Requested By: SEGUN DEVINE Order Number: [id number] ? Reading MD: ?? Yazan Watkins ? Measurements Intervals ?[place] ? Rate: ? 72 ? P: ?81 TX: ? 211 ?QRS: ?72 QRSD: ? 86 ? T: ?79 QT: ? 406 ? QTc: ?445 ? Interpretive Statements SINUS RHYTHM WITH FIRST DEGREE AV BLOCK Compared to ECG 2019 21:09:40 First degree AV block now present Other ischemic changes, not STEMI Segun Devine M.D. CRITICAL ALERT ISSUED ON 02-16-2020 21:15:40 Procedure Note Yazan Watkins MD - 02/16/2020 [facility] [place] Test Date: 2020-02-16 Pat Name: DIANE KLINE Department: Room: [facility] Gender: Female Feed Adviser: VB : 1950 Requested By: SEGUN DEVINE Order Number: [id number] Reading MD: Yazan Watkins Measurements Intervals [place] Rate: 72 P: 81 TX: 211 QRS: 72 QRSD: 86 T: 79 QT: 406 QTc: 445 Interpretive Statements SINUS RHYTHM WITH FIRST DEGREE AV BLOCK Compared to ECG 2019 21:09:40 First degree AV block now present Other ischemic changes, not STEMI Segun Devine M.D. CRITICAL ALERT ISSUED ON 02-16-2020 21:15:40 us Segun Devine MD ECG ORDERABLES Final Result Performing Organization Address City/State/[facility] Co de Phone Number [facility] ([facility]) RAD * XR CHEST PORTABLE (02/16/2020 9:03 PM CDT) Anatomical Region Laterality Modality Chest Fluoroscopy 02/16/2020 9:06 PM CDT Impressions 02/16/2020 9:09 PM CDT [...] - 37.6 SEC 02/16/2020 9:57 PM CDT [facility] 02/16/2020 8:53 PM CDT us Segun Devine MD LABORATORY Final Result Performing Organization Address [facility] Co de Phone Number [facility] [address] [place] [address], [place] [phone] * PROTIME/INR, VENOUS (02/16/2020 8:53 PM CDT) PROTIME 11.3 9.6 - 12.2 SEC 02/16/2020 9:57 PM CDT [facility] INR 1.0 02/16/2020 9:57 PM CDT [facility] Comment: Recommended INR Therapeutic Goals: ??2.0-3.0 Routine Therapy ??2.5-3.5 Mechanical Prosthetic Valves (High Risk) ??3.0-4.0 Acute UT (to prevent Systemic Embolism) The INR is used only for patients on stable oral anticoagulant therapy. It makes no significant contribution to the diagnosis or treatment of patients whose Protime is prolonged for other reasons. 02/16/2020 8:53 PM CDT us Segun Devine MD LABORATORY Final Result [facility] [address] [place] [address], * (ABNORMAL) CBC W/DIFF AUTOMATED (02/16/2020 8:53 PM CDT) WBC 13.8(H) 4.5 - 11.0 x10'3/uL 02/16/2020 9:33 PM CDT [facility] RBC 4.13(L) 4.20 - 5.40 x10'6/uL 02/16/2020 9:33 PM CDT [facility] HGB 12.8 12.0 - 16.0 G/DL 02/16/2020 9:33 PM CDT [facility] HCT 39.0 38.0 - 48.0 % 02/16/2020 9:33 PM CDT [facility] MCV 94.4(H) 80.0 - 94.0 FL 02/16/2020 9:33 PM CDT [facility] MCH 31.0 27.0 - 31.0 PG 02/16/2020 9:33 PM CDT [facility] MCHC 32.8 32.0 - 36.0 G/DL 02/16/2020 9:33 PM CDT [facility] RDW 12.7 11.5 - 14.5 % 02/16/2020 9:33 PM CDT [facility] PLT 249 130 - 400 x10'3/uL 02/16/2020 9:33 PM CDT [facility] MPV 10.3 9.3 - 12.2 FL 02/16/2020 9:33 PM CDT [facility] DIFFERENTIAL TYPE AUTOMATED DIFFERENTIAL 02/16/2020 9:33 PM CDT [facility] NEUTROPHILS % 86.5 % 02/16/2020 9:33 PM CDT [facility] LYMPHOCYTES % 5.3 % 02/16/2020 9:33 PM CDT [facility] MONOCYTES % 7.5 % 02/16/2020 9:33 PM CDT [facility] EOSINOPHILS 0.1 % 02/16/2020 9:33 PM CDT [facility] BASOPHILS 0.1 % 02/16/2020 9:33 PM CDT [facility] IMMATURE GRANS % 0.5 % 02/16/20 20 9:33 PM CDT [facility] ABS. NEUTROPHILS TOTAL 11.93(H) 1.80 - 7.70 x10'3/uL 02/16/2020 9:33 PM CDT [facility] ABS. LYMPHOCYTES 0.73(L) 1.00 - 4.80 x10'3/uL 02/16/2020 9:33 PM CDT [facility] ABS. MONOCYTES 1.03(H) 0.24 - 0.86 x10'3/uL 02/16/2020 9:33 PM CDT [facility] ABS. EOSINOPHILS 0.01(L) 0.04 - 0.36 x10'3/uL 02/16/2020 9:33 PM CDT [facility] ABS. BASOPHILS 0.02 0.01 - 0.08 x10'3/uL 02/16/2020 9:33 PM CDT [facility] ABS. IMMATURE GRANULOCYTES 0.07 0.00 - 0.49 x10'3/uL 02/16/2020 9:33 PM CDT [facility] 02/16/2020 8:53 PM CDT us Segun Devine MD LABORATORY Final Result [facility] [address] [place] [address], [place] [phone] * (ABNORMAL) COMPREHENSIVE METABOLIC PANEL (02/16/2020 8:53 PM CDT) [facility] GLUCOSE 146(H) 70 - 99 MG/DL 02/16/2020 9:55 PM CDT [facility] BUN 14 7 - 18 MG/DL 02/16/2020 9:55 PM CDT [facility] CREATININE S/P/B 0.82 0.55 - 1.02 MG/DL 02/16/2020 9:55 PM CDT [facility] SODIUM S/P/B 139 136 - 145 MMOL/L 02/16/2020 9:55 PM CDT [facility] POTASSIUM S/P/B 4.0 3.5 - 5.1 MMOL/L 02/16/2020 9:55 PM CDT [facility] Comment:SLIGHT HEMOLYSIS, RE SULT MAY BE AFFECTED. CHLORIDE S/P/B 107 100 - 108 MMOL/L 02/16/2020 9:55 PM CDT [facility] CO2 26.0 21 - 32 MMOL/L 02/16/2020 9:55 PM CDT [facility] CALCIUM S/P/B 9.6 8.5 - 10.1 MG/DL 02/16/2020 9:55 PM CDT [facility] BILIRUBIN TOTAL S/P/B 0.4 0.2 - 1.2 MG/DL 02/16/2020 9:55 PM CDT [facility] Comment: THIS ASSAY IS NOT RECOMMENDED FOR PATIENTS UNDERGOING TREATMENT WITH ELTROMBOPAG DUE TO THE POTENTIAL FOR FALSELY ELEVATED RESULTS. TOTAL PROTEIN S/P/B 7.6 6.4 - 8.2 G/DL 02/16/2020 9:55 PM CDT [facility] ALBUMIN S/P/B 3.9 3.4 - 5.0 G/DL 02/16/2020 9:55 PM CDT [facility] AST 24 15 - 37 U/L 02/16/2020 9:55 PM CDT [facility] Comment:SLIGHT HEMOLYSIS, RE SULT MAY BE AFFECTED. ALT 18 14 - 55 U/L 02/16/2020 9:55 PM CDT [facility] ALKALINE PHOSPHATASE S/P/B 88 50 - 136 U/L 02/16/2020 9:55 PM CDT [facility] ANION GAP 6.0 5 - 15 MMOL/L 02/16/2020 9:55 PM CDT [facility] BUN CREATININE RATIO 17.0 6 - 26 02/16/2020 9:55 PM CDT [facility] A/G RATIO 1.1 1.0 - 2.0 RATIO 02/16/2020 9:55 PM CDT [facility] EGFR NON-AFR. AMER. 74(L) >90 ML/MIN/1.7 3 M2 02/16/2020 9:55 PM CDT [facility] EGFR AFR. AMER. 85(L) >90 ML/MIN/1.7 3 M2 02/16/2020 9:55 PM CDT [facility] Comment: NOTE: eGFR is not calculated for patients <18 years of age. This is an estimated GFR (CKD EPI) and should not be used for calculating drug doses. 02/16/2020 8:53 PM CDT us Segun Devine MD LABORATORY Final Result [facility] [address] [place] [address], [place] [phone] documented in this encounter Visit Diagnoses Diagnosis Hip fracture ([facility])- Primary Closed fracture of unspecified part of neck of femur Hip fx, left, closed, initial encounter ([facility]) Closed fracture of left hip, initial encounter ([facility]) documented in this encounter Administered Medications Inactive Administered Medications - up to 3 most recent administrations Medication Order MAR Action Action Date Dose Rate Site 0.9 % NaCl with KCl 20 mEq infusion at 75 mL/hr, Intravenous, Continuous, Starting on Fri02/17/20 at 1215, Until 02/19/20 at 2108 New [...] Given 02/16/2020 11:56 PM CDT 650 mg ceFAZolin (ANCEF) 2 g in sodium chloride 0.9 % 100 mL IVPB 2 g, Intravenous, at 200 mL/hr, Every 8 hours, 2 doses, First dose on Yara 02/17/20 at 2200, Last dose on Fri02/18/20 at 0600Indications:Closed fracture of left hip, initial encounter ([facility]) New 02/18/2020 6:24 AM CDT 2 g 200 mL/hr New 02/17/2020 10:41 PM CDT 2 g 200 mL/hr divalproex DR sprinkle (DEPAKOTE SPRINKLE) capsule 125 [...] (PEPCID) tablet 20 mg 20 mg, Oral, Every 12 hours scheduled (2 times per day), First dose on Fri02/16/20 at 2330, Until Discontinued Given 02/16/2020 11:57 PM CDT 20 mg famotidine (PEPCID) tablet 20 mg 20 mg, Oral, Daily, First dose (after last modification) on Fri02/17/20 at 0900, Until Discontinued, Renally adjusted for CrCl <50ml/min Given 02/19/2020 8:13 AM CDT 20 mg Given 02/18/2020 8:55 AM CDT 20 mg ketorolac (TORADOL) injection 15 mg 15 mg, Intravenous, Every 6 hours PRN, Moderate pain (Scale 4 - 7), Starting on Fri02/17/20 at 1901, Until Fri02/19/20 at 2108, For IV administration, give over [...] at 200 mL/hr, Once, 1 dose, On Fri02/17/20 at 1500, preop only - in OR 1351 (OCT Hold - Provider: User Epic - Reason: Unreviewed Transfer Orders)1357 (New Bag - Provider: Brandy Arteaga CRNA)1400 (Bolus - Provider: Brandy Arteaga CRNA)1415 (Infusion Stop Time - Provider: Brandy Arteaga CRNA)1500 (Automatically Held - Provider: User Epic)1619 (OCT Unhold - Provider: User Epic) ceFAZolin [...] RN) 0813 (Given - Provider: Arminda Dove RN)1600 (Canceled Entry - Provider: Automatic Discharge Provider [...] Metcalf RN)1351 (OCT Hold - Provider: User roundCorner - Reason: Unreviewed Transfer Orders)1619 (OCT Unhold - Provider: User roundCorner) 0855 (See Alternative - Provider: Arminda Dove RN) 0813 (See Alternative - Provider: Arminda Dove RN) famotidine (PEPCID) tablet 20 mg(Linked Group 1) 20 mg, Oral, Daily, First dose (after last modification) on Fri02/17/20 at 0900, Until Discontinued, Renally adjusted for CrCl <50ml/min 0947 (See Alternative - Provider: Honey Metcalf RN)1351 (OCT Hold - Provider: User roundCorner - Reason: Unreviewed Transfer Orders)1619 (OCT Unhold - Provider: User roundCorner) 0855 (Given - Provider: Arminda Dove RN) 0813 (Given - Provider: Arminda Dove RN) memantine (NAMENDA) tablet 10 mg 10 mg, Oral, 2 times daily, First dose on Fri02/16/20 at 2330, Until Discontinued 0832 (Not Given - Provider: Honey Metcalf RN - Reason: NPO)1351 ([facility] Hold - Provider: User Epic - Reason: Unreviewed Transfer Orders)1619 ([facility] Unhold - Provider: User Epic)2200 (Given - [...] Provider: Honey Metcalf RN - Reason: NPO)1351 ([facility] Hold - Provider: User Epic - Reason: Unreviewed Transfer Orders)1619 ([facility] Unhold - Provider: User Epic)2200 (Given - [...] only - just prior to incision 1351 ([facility] Hold - Provider: User Epic - Reason: Unreviewed Transfer Orders)1500 (Automatically Held - Provider: User Epic)1619 ([facility] Unhold - Provider: User Epic) Continuous Medication [...] 0542 (Infusion Stop Time - Provider: Misti Barger RN)0543 (New Bag - Provider: Misti Barger RN)1942 (New Bag - Provider: Arminda Dove RN) PRN Medication Order 02/17/2020 02/18/2020 02/19/2020 acetaminophen (TYLENOL) tablet 650 mg 650 mg, Oral, Every 4 hours PRN, Mild pain (Scale 1 - 3), Headaches, Fever, Starting on 02/16/20 at 2306, Until 02/19/20 at 2108, Maximum dose of acetaminophen is 4000 mg from all sources in 24 hours. 1351 (OCT Hold - Provider: User Epic - Reason: Unreviewed Transfer Orders)161 (OCT Unhold - Provider: User Epic) 0543 (Given - Provider: Misti Barger RN)1019 (Given - Provider: Arminda Dove, TRACIE) ketorolac (TORADOL) injection 15 mg 15 mg, Intravenous, Every 6 hours PRN, Moderate pain (Scale 4 - 7), Starting on Yara 02/17/20 at 1901, Until 02/19/20 at 2108, For IV administration, give over 15 seconds. 1604 (Given - Provider: Arminda Dove, TRAICE) ondansetron (ZOFRAN) injection 4 mg 4 mg, Intravenous, Every 8 hours PRN, Nausea, Vomiting, Starting on 02/16/20 at 2306, Until 02/19/20 at 2108, IV push over 2-5 minutes. 1351 (OCT Hold - Provider: User Epic - Reason: Unreviewed Transfer Orders)161 (OCT Unhold - Provider: User Epic) Linked [...] <50ml/min documented in this encounter Care Teams Ceramics Technician Relationship Specialty Start Date End Date Ramirez Gibson MD PCP - General FAMILY PRACTICE 03/08/19 documented as of this encounter
--- OUTSIDE RECORDS SUMMARY | 2024-08-11 01:39 | XMS_ITS | Encounter Summary ---
Author Organization [facility] Address [address] [place] [address]. [place], [place] [address] [place] [address] Care Team Providers Care Informatics Spec Name Role Phone Chuck Gibson MD Primary Care Provider [phone] Reason for Visit * Auth/Cert Specialty Diagnoses / Procedures Referred By Contac t Referred To Contact Diagnoses Hip fx, left, closed, initial encounter ([facility]) Hip fracture ([facility]) Procedures NA Referral ID Status Reason Start Date Expiration Date Visits Re quested Visits Authorized [id number] 1 1 Encounter Details Date Type Department Care Team (Late st Contact Info) Description 02/17/2020 1:51 PM CDT Anesthesia Event [facility] [place] [address] Eros Sterling MD [address] [place] [id number] Anesthesia Record Procedure Summary Procedure Name Responsible Anesthesiologist Anesthesia Start Time Anesthesia Stop Time ARTHROPLASTY HIP ROMEO ANTERIOR APPROACH (Left: Hip) Eros Sterling MD 02/17/20 1351 02/17/20 1623 Events Date Time Event Comment 02/17/2020 1131 AN ROCK CONTRACTOR Prepped 1339 1339 AN Anesthesia Prepped 1351 An Start Patient ID and consent checked and patient reassessed. 1352 An Start Data 1405 Block Start 1408 An Block 1409 An Induction 1409 Face Mask Applied 1410 Anesthesia Ready 1606 An Emergence 1610 an stop data 1623 Post Anesthetic Care Handoff I completed my handoff to the receiving nurse during which we: 1. Identified the patient 2. Identified the responsible provider 3. Reviewed the pertinent medical history 4. Discussed the surgical course 5. Reviewed intra-op anesthesia management and issues during anesthesia 6. Set expectations for post-procedure period 7. Allowed opportunity for questions and acknowledgement of understanding. 1623 An Stop Meds Name Total fentaNYL (SUBLIMAZE) 100 mcg/2 mL inject ion 50 mcg lidocaine (PF) (XYLOCAINE) 2% injection 100 mg propofol (DIPRIVAN) 200 mg/20 mL injecti on 25 mg BUpivacaine 0.75%-dextrose 8.25% intrath ecal injection 1.4 mL tranexamic acid (CYKLOKAPRON) injection 1,000 mg ceFAZolin (ANCEF) 2 g in sodium chloride 0.9 % 100 mL IVPB 4 g propofol (DIPRIVAN) 1000 mg/100 mL infus ion 128.52 mg dexamethasone (DECADRON) injection 4 mg EPINEPHrine 0.1 mg/mL injection 0.1 mg lactated ringers infusion 550 mL * Agents Name O2 N2O Air * Blood No blood administrations on file. Lines, Drains, and Airways Type Details Placement Removal Peripheral IV Placement Date: 01/24 12/12; Placed Outside of This Facility?: No; Size: 22 G; Orientation: Left; Location: Hand; Local Anesthetic: None; Inserted By: EMS; Insertion attempts: 1; Ultrasound-guided Placement?: No; Patient Tolerance: Tolerated well; Removal Date: 02/18/20; Removal Time: 1999; Removal Reason: Other (IV from ambulance) 02/16/20 by Grecia Hamm RN 02/18/201999 by Tiff Tucker RN Peripheral IV Placement Date: 01/24 12/12; Placement Time: 2051; Size: 20 G; Orientation: Left, Medial; Location: Antecubital; Site Prep: Chlorhexidine; Inserted By: EMS STUDENT; Insertion attempts: 2; Ultrasound-guided Placement?: No; Patient Tolerance: Tolerated well; Removal Date: 02/02/23; Removal Time: 2152; Removal Reason: D/C'd Prior to This Admission 02/16/202051 by Anabel Holliday RN 02/02/232152 by Bridget Pruitt RN Frazier Catheter 02/17/20; 0145; No; Obstruction - Urinary retention/Bladder outlet obstruction, Immobilization - Due to unstable fracture; 1; Hand hygiene performed, Site cleansed with sterile antiseptic, Sterile gloves, drape and lubricant used, Catheter inserted using aseptic technique, Frazier care post catheter insertion, Anchoring device applied, Drainage bag secured below level of bladder, Closed system maintained; Stat lock; Latex; 16 Fr.; Drain/Catheter Damaged 02/17/20 0145 by Misti Barger RN 02/17/20 1413 by Madeline Delgadillo RN Supraglottic Airway Placement Date: 01/24 01/11; Placement Time: 1409; Airway Device: Facemask; Breath Sounds:Clear bilaterally; Breath Sound:Clear; Placement Verified By: Capnography, Auscultation, Chest Rise; Removal Date: 02/02/23; Removal Time: 2152; Removal Person: ROCK CONTRACTOR; Removal Reason: End of Case 02/17/20 1410 by Brandy Arteaga, ROCK CONTRACTOR 02/02/232152 by Bridget Pruitt RN Frazier Catheter 02/17/20; 1415; No; I & O - Strict I&O or Critically ill requiring I&O Q1-2hrs; 1; Hand hygiene performed, Site cleansed with sterile antiseptic, Sterile gloves, drape and lubricant used, Catheter inserted using aseptic technique, Frazier care post catheter insertion, Anchoring device applied, Drainage bag secured below level of bladder, Closed system maintained; Stat lock; Latex; 14 Fr.; D/C'd Prior to This Admission 02/17/20 141 by Madeline Delgadillo RN 02/02/232152 by Bridget Pruitt RN Surgical/Incision 02/17/20; 1540; Surg ical Wound; Hip; Left; SUTURE, DERMABOND, 4X4, TEGADERM; 02/19/20; 210702/17/20 1540 by Peg Woods RN 02/19/202107 by Automatic Discharge Provider documented in this encounter Social History Tobacco [...] PM CDT documented as of this encounter Functional Status [...] John RN Active documented in this encounter OR Notes * Anesthesia Postprocedure Evaluation - Jaylan Rapp CRNA - 02/18/2020 9:36 AM CDT Anesthesia Post-op Note Diane Kline Procedure(s): ARTHROPLASTY HIP ROMEO ANTERIOR APPROACH (Left Hip) Anesthesia type: spinal Vitals: 02/18/20 0430 BP: 135/76 Vitals: 02/18/20 0430 Pulse: 120 Vitals: 02/18/20 0430 Resp: 24 Vitals: 02/18/20 0900 Temp: 37.2 ??C Vitals: 02/18/20 0430 SpO2: 99% Patient Location: Inpatient Unit Level of Consciousness: awake, alert and oriented Pain Management: adequate analgesia Airway Patency: patent Respiratory Status: acceptable Cardiovascular Status: acceptable and stable Post-Op Nausea: none Postoperative Hydration: euvolemic Complications: no anesthesia complication Comments: Blood pressure 135/76, pulse 120, temperature 37.2 ??C, temperature source Axillary, resp. rate 24, height 5' 4 (1.626 m), weight 47.6 kg (104 lb 15 oz), SpO2 99 %. * Anesthesia Postprocedure Evaluation - Eros Sterling MD - 02/17/2020 5:06 PM CDT Anesthesia Post-op Note Diane Kline Procedure(s): ARTHROPLASTY HIP ROMEO ANTERIOR APPROACH (Left Hip) Anesthesia type: spinal Vitals: 02/17/20 1700 BP: 126/72 Vitals: 02/17/20 1700 Pulse: 87 Vitals: 02/17/20 1700 Resp: 15 Vitals: 02/17/20 1619 Temp: 36.5 ??C Vitals: 02/17/20 1700 SpO2: 94% Anesthesia Post Evaluation * Anesthesia Procedure Notes - Consuelo Coronado MD - 02/17/2020 2:18 PM CDTAssociated Order(s): Spinal Block Spinal Block Date/Time: 02/17/2020 2:08 PM Patient location during procedure: OR Reason for block: primary anesthetic Staffing Anesthesiology Provider: Consuelo Coronado MD Performed by: anesthesiologist Preanesthetic Checklist Completed: patient identified, site marked, surgical consent, pre-op evaluation, timeout performed,IV checked, risks and benefits discussed and monitors and equipment checked Spinal Block Patient position: right lateral decubitus Prep: patient draped and chlorhexidine Patient monitoring: equipment monitor phototypesetting, continuous pulse oximetry and blood pressure Approach: midline Ultrasound-guided Placement: No Location: L4-5 L3-4 Attempts: 1, Dose: 2 mL Needle Needle type: Pencil tip Needle gauge: 24 G Needle length: 10 cm Needle attempts: 1 Assessment Sensory level: T10 Events: negative paresthesia, negative aspiration, positive free flow CSF and patient tolerated well Additional Notes Lot # [id number] Exp 2020-06-24 * Anesthesia Procedure Notes - Brandy Arteaga CRNA - 02/17/2020 2:17 PM CDT Associated Order(s): Spinal Block Spinal Block * Anesthesia Preprocedure Evaluation - Consuelo Coronado MD - 02/17/2020 12:37 PM CDT Anesthesia ROS/MED History Reviewed: Patient summary , Family history anesthesia, Anesthesia history , Medications , Labs , Unchecked boxes are not applicable Pre-Anesthetic State: alert, awake and responds appropriately no history of anesthetic complications (no prior history of anesthesia) Pulmonary (+) smoker (quit) Cardiovascular neg cardio ROS Exercise tolerance:good Neuro/Psych (+) psychiatric problem (on depakote for behavioural issues), dementia(-) no seizures Comments: blind GI/Hepatic/Renal neg GI/hepatic/renal ROS (-) GERD Endo/Other neg endo/other ROS GENERAL COMMENTS History reviewed. No pertinent surgical history. Past Medical History: No date: Atherosclerosis Comment: BLE No date: Blind No date: Cataract No date: Dementia (CMS/HCC) No date: Ex-smoker No date: Falls No date: Glaucoma No date: Hallucinations No date: Nonverbal No date: Seizures (CMS/HCC) No date: Vitamin D deficiency No date: Wandering Physical Exam Anesthesia Plan ASA 2 Intravenous Induction Anesthesia type: spinal Discussed potential risks of Spinal Anesthesia with supplementary deep sedation//general anesthesia, including but not limited to low back tenderness or bruising, post-dural puncture headache, nerve injury, corneal abrasion, visual impairment or visual loss, mouth injury, dental damage, sore throat, hoarseness, esophageal injury, awareness under anesthesia, nerve injury due to positioning, aspiration, pneumonia, stroke, cardiac event, adverse drug reactions and . SAB/MAC Informed Consent Anesthetic plan and risks discussed with patient of whom consent was obtained. . documented in this encounter Plan of Treatment Not on file documented as of this encounter Procedures Procedure Name Priority Date/Time Associated Diagnosis Comments AN SPINAL Routine 02/17/2020 2:18 PM CDT AN SPINAL Routine 02/17/2020 2:17 PM CDT documented in this encounter Results * AN SPINAL (02/17/2020 2:18 PM CDT) Narrative Consuelo Alberto MD - 02/17/2020 2:18 PM CDT Consuelo Coronado MD ? 02/17/2020 ??2:29 PM Spinal Block Date/Time: 02/17/2020 2:08 PM Patient location during procedure: OR Reason for block: primary anesthetic Staffing Anesthesiology Provider: Consuelo Coronado MD Performed by: anesthesiologist Preanesthetic Checklist Completed: patient identified, site marked, surgical consent, pre-op evaluation, timeout performed, IV checked, risks and benefits discussed and monitors and equipment checked Spinal Block Patient position: right lateral decubitus Prep: patient draped and chlorhexidine Patient monitoring: equipment monitor phototypesetting, continuous pulse oximetry and blood pressure Approach: midline Ultrasound-guided Placement: ??No Location: L4-5 L3-4 Attempts: 1, Dose: ??2 mL Needle Needle type: Pencil tip Needle gauge: 24 G Needle length: 10 cm Needle attempts: 1 Assessment Sensory level: T10 Events: negative paresthesia, negative aspiration, positive free flow CSF and patient tolerated well Additional Notes Lot # ??[id number] Exp ??2020-06-24 us Consuelo Coronado MD [place] ANESTHESIA Edite d Result - Final * AN SPINAL (02/17/2020 2:17 PM CDT) Narrative Brandy Arteaga CRNA - 02/17/2020 2:17 PM CDT Brandy Arteaga CRNA ? 02/17/2020 ??2:18 PM Spinal Block Consuelo Coronado MD [place] ANESTHESIA Final Result documented in this encounter Visit Diagnoses Not on filedocumented in this encounter Administered Medications Inactive Administered Medications - up to 3 most recent administrations Medication Order MAR Action Action Date Dose Rate Site BUpivacaine 0.75% in dextrose 8.25% (intrathecal) (SENSORCAINE) 0.75-8.25 % injection Intrathecal, PRN, Starting on Yara 02/17/20 at 1408, Until Yara 02/17/20 at 1623, Anesthesia Intra-Op Given 02/17/2020 2:08 PM CDT 1.4 mLs ceFAZolin (ANCEF) 2 g in sodium chloride 0.9 % 100 mL IVPB 2 g, Intravenous, at 200 mL/hr, Once, 1 dose, On Yara 02/17/20 at 1500, preop only - in OR Bolus 02/17/2020 2:00 PM CDT 2 g New Bag 02/17/2020 1:57 PM CDT 2 g dexamethasone (DECADRON) injection PRN, Starting on Yara 02/17/20 at 1431, Until Yara 02/17/20 at 1623, Anesthesia Intra-Op Given 02/17/2020 2:31 PM CDT 4 m g EPINEPHrine (ADRENALIN) 1 MG/10ML injection PRN, Starting on Yara 02/17/20 at 1405, Until Yara 02/17/20 at 1623, Anesthesia Intra-Op Given 02/17/2020 2:05 PM CDT 0.1 mg fentaNYL (SUBLIMAZE) injection PRN, Starting on Yara 02/17/20 at 1519, Until Yara 02/17/20 at 1623, Anesthesia Intra-Op Given 02/17/2020 3:24 PM CDT 25 mcg Given 02/17/2020 3:19 PM CDT 25 mcg lactated ringers infusion Continuous PRN, Starting on Yara 02/17/20 at 1345, Until Yara 02/17/20 at 1623, Anesthesia Intra-Op New Bag 02/17/2020 1:45 PM CDT lidocaine (PF) (XYLOCAINE) 2 % injection Intravenous, PRN, Starting on Yara 02/17/20 at 1412, Until Yara 02/17/20 at 1623, Anesthesia Intra-Op Given 02/17/2020 2:12 PM CDT 100 mg propofol (DIPRIVAN) infusion Continuous PRN, Starting on Yara 02/17/20 at 1413, Until Yara 02/17/20 at 1623, Anesthesia Intra-Op New Bag 02/17/2020 2:13 PM CDT 25 mcg/kg/min 7.14 mL/hr propofol (DIPRIVAN) IV bolus Intravenous, PRN, Starting on Yara 02/17/20 at 1405, Until Yara 02/17/20 at 1623, Anesthesia Intra-Op Given 02/17/2020 2:05 PM CDT 25 mg tranexamic acid (CYKLOKAPRON) injection Intravenous, PRN, Starting on Yara 02/17/20 at 1400, Until Yara 02/17/20 at 1623, Anesthesia Intra-Op Given 02/17/2020 2:00 PM CDT 1,000 mg documented in this encounter Care Teams Informatics Spec Relationship Specialty Start Date End Date Chuck Gibson MD PCP - General FAMILY PRACTICE 03/08/19 documented as of this encounter
--- OUTSIDE RECORDS SUMMARY | 2024-08-11 01:39 | XMS_ITS | Encounter Summary ---
Author Organization [facility] Address [address] [place] [address]. [place] [id number] Care Team Providers Care Syrup Blender Name Role Phone Chuck Gibson MD Primary Care Provider [phone] Encounter Details Date Type Department Care Team (Latest Contact Info) Description 02/16/2020 Travel Social History Tobacco Use Types Packs/Day Years [...] documented as of this encounter Functional Status documented as of this encounter Mental Status * Question Answer Entry Date Author Status Because of a physical, mental, or emotional condition, do you have serious difficulty concentrating, remembering, or making decisions? Yes 02/16/2020 11:58 PM CDT Ange John RN Active documented in this encounter Plan of Treatment Not on file documented as of this encounter Visit Diagnoses Not on filedocumented in this encounter Care Teams Syrup Blender Relationship Specialty Start Date End Date Chuck Gibson MD PCP - General FAMILY PRACTICE 03/08/19 documented as of this encounter
--- OUTSIDE RECORDS SUMMARY | 2024-08-11 05:10 | XMS_ITS | Encounter Summary ---
Author Organization [facility] Address [address] [place] [address]. [place], [place] [address] [place] [address] Care Team Providers Care Charm Filter Operator Helper Name Role Phone Chuck Gibson MD Primary Care Provider [phone] Reason for Visit * Auth/Cert Specialty Diagnoses / Procedures Referred By Contac t Referred To Contact Diagnoses Hip fx, left, closed, initial encounter ([facility]) Hip fracture ([facility]) Procedures NA Referral ID Status Reason Start Date Expiration Date Visits Re quested Visits Authorized [id number] 1 1 Encounter Details Date Type Department Care Team (Late st Contact Info) Description 02/17/2020 1:51 PM CDT Anesthesia Event [facility] [place] [address] Eros Sterling MD [address] [place] [id number] Anesthesia Record Procedure Summary Procedure Name Responsible Anesthesiologist Anesthesia Start Time Anesthesia Stop Time ARTHROPLASTY HIP ROMEO ANTERIOR APPROACH (Left: Hip) Eros Sterling MD 02/17/20 1351 02/17/20 1623 Events Date Time Event Comment 02/17/2020 1131 AN FIBERGLASS AUTO BODY REPAIRER Prepped 1339 1339 AN Anesthesia Prepped 1351 [...] Date: 02/02/23; Removal Time: 2152; Removal Person: FIBERGLASS AUTO BODY REPAIRER; Removal Reason: End of Case 02/17/20 1410 by Brandy Arteaga, FIBERGLASS AUTO BODY REPAIRER 02/02/232152 by Bridget Pruitt RN Frazier Catheter [...] Prep: patient draped and chlorhexidine Patient monitoring: traffic monitor specialist, continuous pulse oximetry and blood pressure Approach: midline Ultrasound-guided Placement: No Location: L4-5 L3-4 Attempts: 1, Dose: 2 mL Needle Needle type: Pencil tip Needle gauge: 24 G Needle length: 10 cm Needle attempts: 1 Assessment Sensory level: T10 Events: negative paresthesia, negative aspiration, positive free flow CSF and patient tolerated well Additional Notes Lot # [id number] Exp 2020-06-24 * Anesthesia Procedure Notes - [...] Prep: patient draped and chlorhexidine Patient monitoring: traffic monitor specialist, continuous pulse oximetry and blood pressure Approach: midline Ultrasound-guided Placement: ??No Location: L4-5 L3-4 Attempts: 1, Dose: ??2 mL Needle Needle type: Pencil tip Needle gauge: 24 G Needle length: 10 cm Needle attempts: 1 Assessment Sensory level: T10 Events: negative paresthesia, negative aspiration, positive free flow CSF and patient tolerated well Additional Notes Lot # ??[id number] Exp ??2020-06-24 us Consuelo Coronado MD [place] ANESTHESIA Edite d Result - Final * AN SPINAL (02/17/2020 2:17 PM CDT) Narrative Brandy Arteaga CRNA - 02/17/2020 2:17 PM CDT Brandy Arteaga CRNA ? 02/17/2020 ??2:18 PM Spinal Block Consuelo Coronado MD MA ANESTHESIA Final Result documented in this encounter [...] mg documented in this encounter Care Teams Charm Filter Operator Helper Relationship Specialty Start Date End Date Chuck Gibson MD PCP - General FAMILY PRACTICE 03/08/19 documented as of this encounter
--- OUTSIDE RECORDS SUMMARY | 2024-08-11 05:10 | XMS_ITS | Encounter Summary ---
Author Organization [facility] Address [address] [place] [address]. [place] [phone] Care Team Providers Care Mortuary Beautician Name Role Phone Chuck Gibson MD Primary Care Provider [phone] Encounter Details Date Type Department Care Team [...] on filedocumented in this encounter Care Teams Mortuary Beautician Relationship Specialty Start Date End Date Chuck Gibson MD PCP - General FAMILY PRACTICE 03/08/19 documented as of this encounter
--- OUTSIDE RECORDS SUMMARY | 2024-08-11 05:10 | XMS_ITS | Encounter Summary ---
Author Organization [facility] Address [address] [place] [address]. [place], [place] [id number] [place] [address] Care Team Providers Care Hoisting Machine Operator Name Role Phone Chuck Gibson MD Primary Care Provider [phone] Reason for Visit * Reason Comments Image (SCAN) Encounter Details Date Type Department Care Team (Late st Contact Info) Description 05/08/2020 Scan [facility] [place] [address] Scanned, Documents Image (SCAN) Social History Tobacco [...] on filedocumented in this encounter Care Teams Hoisting Machine Operator Relationship Specialty Start Date End Date Chuck Gibson MD PCP - General FAMILY PRACTICE 03/08/19 documented as of this encounter
--- OUTSIDE RECORDS SUMMARY | 2024-08-11 05:10 | XMS_ITS | Encounter Summary ---
Author Organization [facility] Address [address] [place] [address]. [place], [place] [id number] [place] [id number] Care Team Providers Care Estimator Jewelry Name Role Phone Ramirez Gibson MD Primary Care Provider [phone] Reason for Visit * Reason Comments Fall Left hip fracture pe r [place] from [place] * Auth/Cert Specialty Diagnoses / Procedures Referred By Contac t Referred To Contact Diagnoses Hip fx, left, closed, initial encounter ([facility]) Hip fracture ([facility]) Procedures NA Referral ID Status Reason Start Date Expiration Date Visits Re quested Visits Authorized [id number] 1 1 Encounter Details Date Type Department Care Team (Late st Contact Info) Description 02/17/2020 3:25 PM CDT - 02/17/2020 5:45 PM CDT Surgery [facility] [place] [address] Garfield Pepper MD [address] [place] [id number] ARTHROPLASTY HIP ROMEO ANTERIOR APPROACH Surgery Details [...] TRAMAINE GONZALEZ MD Hospital Diagnosis: Hip fracture ([facility]) Procedures: 02/17/20 - L hip hemiarthroplasty Discharged Condition: Good Code Status: Full Code Indication for Admission: Chief Complaint Patient presents with ??? Fall Left hip fracture per [place] from [place] History of Present Illness: Diane Kline is [...] of 02/16/20 ECG 12 lead ?? Narrative ?[facility] ?[address], [place] ?Te st Date: ?2020-02-16 Pat Name: ?DIANE BROWN ?Department: ?Room: ?[id number] Gender: ?Female ?Pbx Installer: ?VB : ?1950 ?Requested By: SEGUN PETER Order Number: [id number] ?Reading MD: ?Measurements Intervals ?Zenda ? Rate: ?72 ?P: ?81 FL: ?211 ?QRS: ?72 QRSD: ?86 ?T: ?79 [...] tablet ?? enoxaparin 40 MG/0.4ML Soln Disposition: Longterm Facility Time Spent on Discharge: Greater than [...] CDT PT WAS DC ON THE TO [facility] HAD BEEN PLANNED. THE [...] REQUIRED. PT ANTICIPATED TO HAVE TRAVELED BY [facility] BUT SW WAS NOT IN HOUSE AND DID NOT ARRANGE. NO NEW PRESCREEN REQUIRED TO RETURN TO THE NH. SW HAD LEFT NUMBERS TO CALL REPORT AND FAX DC INSTRUCTIONS. RN AWARE OF PLANS AND SW ACTIONS. NO FURTHER NEEDS NOTED. SW COMPLETE AND CASE CLOSED. 02/22/20 1652 Discharge Planning Support Systems Children Type of Residence senior living Assistance Needed Yes Patient expects to be discharged to: Residential * Beverly Alston PTA - 02/19/2020 12:16 [...] LEFT AT BEDSIDE TO BE SENT TO [place] WITH PATIENT Patient/Family Training Exercise Program x Recommendation PT Recommendation PT during Hospitalization;PT at Longterm Facility Plan PT Treatments/Interventions Therapeutic Exercises;Therapeutic Activities [...] CONFIRMED PLANS FOR PT TO RETURN TO [facility] UPON DC. PT IS FROM THIS FACILITY. PT CAN RETURN ON THE WEEKEND. CALL ALYSE TO NOTIFY OF DC AT [phone] WITH ADMISSIONS. CALL REPORT TO [phone] AND FAX DC INSTRUCTION TO [phone] AND DTR KG AT [phone]. PT INSURED WITH MEDICARE SUCH THAT WITH HER INS AMB OK FOR EITHER [facility] OR [facility]. PER ROUNDS PT IS LIKELY TO BE READY FOR DC ON THE WEEKEND. VERBAL INFORMATION REGARDING IMPORTANT MESSAGE FROM MEDICARE PROVIDED TO PATIENT VENEER MEASURER SLIM PT IS CONFUSED. . EDUCATION PROVIDED AND DTR VERBALIZED UNDERSTANDING AND GAVE VERBAL PERMISSION TO SIGN THE IMM. COPY PLACED INTO THE CHART FOR SCANNING. COPY LEFT IN THE ROOM FOR DTR TO RECEIVE WHEN SHE VISITED LATER TONIGHT. * Tramaine Gonzlaez MD - 02/18/2020 2:23 PM CDT Hospitalist [...] 02/16/20 ECG 12 lead ?? Narrative ?? [facility] Test Date: 2020-02-16 Pat Name: DIANE KLINE Department: Room: [id number] Gender: Female Pbx Installer: FIOR : 1950 Requested By: SEGUN DEVINE Order Number: [id number] Reading MD: Measurements Intervals Zenda Rate: 72 P: 81 FL: 211 QRS: 72 QRSD: 86 T: 79 [...] Recommendation PT Recommendation PT during Hospitalization;PT at Longterm Facility Plan PT Treatments/Interventions Therapeutic Exercises;Therapeutic Activities [...] dry, moves foot up and down Assessment 20-[id number] s/p L hip hemiarthroplasty on 02/16/2020 Plan [...] given the difficulty of transporting the patient. [facility], [address] [address] GARFIELD PEPPER MD Filed Vitals: 02/17/20 2200 [...] remained clean, dry, and intact during shift. REEL MAN notified this RN that patient had a [...] for Falls/Injury Outcome: Not Progressing Informed by [facility] that patient can be impulsive. Patient at [...] Outcome: Progressing Planning to send back to [facility] [place] Problem: Pain control/comfort Goal: Promote pain control/comfort [...] A 69 YR OLD FEMALE ADMITTED FROM [facility] WHERE SHE IS REPORTED TO BE A LONG TERMRESIDENT. PT IS AT BASELINE CONFUSED PER THE NURSING TEAM. PT IS TO SURGERY TODAY FOR A HIP FRACTURE. PT IS UNABLE TO PROVIDE INFORMATION BUT SW WILL FOLLOW UP WITH HER DTR MARISELA KLINE TOMORROW FOLLOWING SURGERY TO CONFIRM INFORMATION OBTAINED FROM STAFF AND REGARDING PLANS FOR RETURN TO THE [place] UP[place] DC. 02/17/20 1616 Referral Data Referral Reason Discharge Planning Source of Information Chart review (STAFF) Patient Information Primary Caregiver ([place] STAFF) Support System Immediate family Baseline ADL's Functional Status Minimum assistance;Moderate assistance Type of Residence senior living Ambulation Assistance Yes Bathing/Grooming Assistance Yes Dressing [...] Plan Support Systems Children Type of Residence senior living Assistance Needed Yes Patient expects to be discharged to: Residential * Tramaine Gonzalez MD - 02/17/2020 11:54 [...] 02/16/20 ECG 12 lead ?? Narrative ?? [facility] Test Date: 2020-02-16 Pat Name: DIANE KLINE Department: Room: [place] [address] Gender: Female Pbx Installer: FIOR : 1950 Requested By: SEGUN DEVINE Order Number: [id number] Reading MD: Measurements Intervals Zenda Rate: 72 P: 81 FL: 211 QRS: 72 QRSD: 86 T: 79 [...] >428 mL in bladder. Physician notified. 16 Romansh Frazier inserted this shift. documented in this encounter H&P Notes * Asha cEkert MD - 02/16/2020 9:46 PM CDT Hospitalist [...] file Gets together: Not on file Attends latter-day service: Not on file Active member of [...] No results for input(s): PH, PCO2, PO2, [id number], BICARBWB, BASEDEFICIT, BASEEXCESS in the [id number] hours. Imagining & Other Studies Xr Chest Portable Result Date: 02/16/2020 IMPRESSION: No acute chest disease identified. Results for orders placed or performed during the hospital encounter of 02/16/20 ECG 12 lead Narrative [address] Test Date: 2020-02-16 Pat Name: DIANE KLINE Department: Room: [place] [address] Gender: Female Pbx Installer: FIOR : 1950 Requested By: SEGUN DEVINE Order Number: [id number] Reading MD: Measurements Intervals Zenda Rate: 72 P: 81 FL: 211 QRS: 72 QRSD: 86 T: 79 [...] femoral neck fracture. She lives in a fci. History is obtained from her daughter, Kg. Patient has dementia and is nonverbal. She is able to walk and, in fact, they have had trouble getting her to stop walking. This is improved somewhat as she has been transition to a memory care unit. She fell yesterday while at the fci. Past Medical History: Diagnosis Date ??? Atherosclerosis [...] file Gets together: Not on file Attends latter-day service: Not on file Active member of [...] on regular diet with finger foods at [facility]. ANGE JOHN RN documented in this encounter OR Notes * Op Note - Garfield Pepper MD - 02/18/2020 12:00 AM CDT SURGEON: Garfield Pepper MD RELIGIOUS RITUAL SLAUGHTERER: JON Connor PREOPERATIVE DIAGNOSIS: Left femoral neck [...] transitioned to recovery room in stable condition. #[id number] /NTS * Brief Op Note - Garfield Pepper MD - 02/17/2020 4:03 PM CDT ARTHROPLASTY HIP ROMEO ANTERIOR APPROACH Procedure Note Diane Kline 02/16/2020 - 02/17/2020 1525 Procedure(s) (LRB): ARTHROPLASTY HIP ROMEO ANTERIOR APPROACH (Left) Surgeon(s): Garfield Pepper MD Staff: Jig Hand: JON Doll; JON Ramos Relief Circulating Nurse: Peg Woods RN Circulating Nurse 1: Madeline Delgadillo RN Scrub Person 1: Obdulio Cruz, REGULATOR TESTER Scrub Person 2: Polo BERTA Hart Anesthesia: Spinal Anesthesiologist: Eros Sterling MD; Consuelo Coronado MD SIGNAL PERSON: Sharon Coronado CRNA; Brandy Arteaga CRNA Pre-Op [...] Fall Left hip fracture per [place] from [place] History of Present Illness The patient is a very pleasant 69-year-old female examined the emergency department. She presents today with left hip pain. The patient is nonverbal at baseline and presents from a long-term care facility. According to fci staff, the patient was getting dressed and [...] of 02/16/20 [address] [facility] Test Date: 2020-02-16 Pat Name: DIANE KLINE Department: Room: [facility] Gender: Female Pbx Installer: FIOR : 1950 Requested By: SEGUN DEVINE Order Number: [id number] Reading MD: Yazan Watkins Measurements Intervals Zenda Rate: 72 P: 81 FL: 211 QRS: 72 QRSD: 86 T: 79 [...] HIP LAT LT Final Result by User, [id number] (02/16 1700) Examination: AP pelvis and left [...] HIP LT 1V Final Result by User, [id number] (02/16 3259) Examination: Intraoperative fluoroscopy Exam date/time: 02/17/2020 3:46 [...] OR 2 VIEWS Final Result by User, [id number] (06/24 2224) Examination: XR PELVIS 1 OR [...] HIP LT 2V Final Result by User, [id number] (02/15 2209) Examination: XR HIP LT 2V [...] XR CHEST PORTABLE Final Result by User, [id number] (02/15 2110) Examination: XR CHEST PORTABLE Exam [...] Impression Hip fx, left, closed, initial encounter ([facility]) (Primary) Disposition: Admit Segun Devine MD 02/20/20 0559 * Marlys Mireles RN - 02/16/2020 8:42 PM CDT Bed: 09 Expected date: Expected time: Means of arrival: Comments: [id number] * Grecia Hamm RN - 02/16/2020 8:35 PM CDT EMS from [facility], Pt fell this morning, pt was getting [...] BASIC METABOLIC PANEL (02/19/2020 5:31 AM CDT) [facility] GLUCOSE 77 70 - 99 MG/DL 02/19/2020 6:[address] [facility] BUN 12 7 - 18 MG/DL 02/19/2020 6:[address] [facility] CREATININE S/P/B 0.63 0.55 - 1.02 MG/DL 02/19/2020 6:[address] [facility] SODIUM S/P/B 139 136 - 145 MMOL/L 02/19/2020 6:[address] [facility] POTASSIUM S/P/B 4.1 3.5 - 5.1 MMOL/L 02/19/2020 6:[address] [facility] CHLORIDE S/P/B 110(H) 100 - 108 MMOL/L 02/19/2020 6:[address] [facility] CO2 27.3 21 - 32 MMOL/L 02/19/2020 6:[address] [facility] CALCIUM S/P/B 8.9 8.5 - 10.1 MG/DL 02/19/2020 6:[address] [facility] ANION GAP 1.7(L) 5 - 15 MMOL/L 02/19/2020 6:[address] [facility] BUN CREATININE RATIO 19.0 6 - 26 02/19/2020 6:[address] [facility] EGFR NON-AFR. AMER. >90 >90 ML/MIN/1.7 3 M2 02/19/2020 6:[address] [facility] EGFR AFR. AMER. >90 >90 ML/MIN/1.7 3 M2 02/19/2020 6:[address] [facility] Comment: NOTE: eGFR is not calculated for patients <18 years of age. This is an estimated GFR (CKD EPI) and should not be used for calculating drug doses. 02/19/2020 5:31 AM CDT us Tramaine Gonzalez MD LABORATORY Final Result [facility] [address] [place] [address], [place] [phone] * (ABNORMAL) CBC W/DIFF AUTOMATED (02/19/2020 5:31 AM CDT) WBC 8.5 4.5 - 11.0 x10'3/uL 02/19/2020 5:[address] [facility] RBC 3.56(L) 4.20 - 5.40 x10'6/uL 02/19/2020 5:[address] [facility] HGB 11.2(L) 12.0 - 16.0 G/DL 02/19/2020 5:[address] [facility] HCT 33.6(L) 38.0 - 48.0 % 02/19/2020 5:[address] [facility] MCV 94.4(H) 80.0 - 94.0 FL 02/19/2020 5:[address] [facility] MCH 31.5(H) 27.0 - 31.0 PG 02/19/2020 5:[address] [facility] MCHC 33.3 32.0 - 36.0 G/DL 02/19/2020 5:[address] [facility] RDW 13.2 11.5 - 14.5 % 02/19/2020 5:[address] [facility] PLT 172 130 - 400 x10'3/uL 02/19/2020 5:[address] [facility] MPV 10.4 9.3 - 12.2 FL 02/19/2020 5:[address] [facility] DIFFERENTIAL TYPE AUTOMATED DIFFERENTIAL 02/19/2020 5:[address] [facility] NEUTROPHILS % 71.7 % 02/19/2020 5:[address] [facility] LYMPHOCYTES % 12.4 % 02/19/2020 5:[address] [facility] MONOCYTES % 14.7 % 02/19/2020 5:[address] [facility] EOSINOPHILS 0.4 % 02/19/2020 5:[address] [facility] BASOPHILS 0.2 % 02/19/2020 5:[address] [facility] IMMATURE GRANS % 0.6 % 02/19/20 20 5:[address] [facility] ABS. NEUTROPHILS TOTAL 6.08 1.80 - 7.70 x10'3/uL 02/19/2020 5:[address] [facility] ABS. LYMPHOCYTES 1.05 1.00 - 4.80 x10'3/uL 02/19/2020 5:[address] [facility] ABS. MONOCYTES 1.25(H) 0.24 - 0.86 x10'3/uL 02/19/2020 5:[address] [facility] ABS. EOSINOPHILS 0.03(L) 0.04 - 0.36 x10'3/uL 02/19/2020 5:[address] [facility] ABS. BASOPHILS 0.02 0.01 - 0.08 x10'3/uL 02/19/2020 5:[address] [facility] ABS. IMMATURE GRANULOCYTES 0.05 0.00 - 0.49 x10'3/uL 02/19/2020 5:[address] [facility] 02/19/2020 5:31 AM CDT us Tramaine Gonzalez MD LABORATORY Final Result [facility] [address] [place] [address], [place] [phone] * (ABNORMAL) BASIC METABOLIC PANEL (02/18/2020 9:23 AM CDT) GLUCOSE 102(H) 70 - 99 MG/DL 02/18/2020 10:[address] [facility] BUN 12 7 - 18 MG/DL 02/18/2020 10:[address] [facility] CREATININE S/P/B 0.90 0.55 - 1.02 MG/DL 02/18/2020 10:[address] [facility] SODIUM S/P/B 136 136 - 145 MMOL/L 02/18/2020 10:[address] [facility] POTASSIUM S/P/B 4.3 3.5 - 5.1 MMOL/L 02/18/2020 10:[address] [facility] CHLORIDE S/P/B 109(H) 100 - 108 MMOL/L 02/18/2020 10:[address] [facility] CO2 22.0 21 - 32 MMOL/L 02/18/2020 10:[address] [facility] CALCIUM S/P/B 9.1 8.5 - 10.1 MG/DL 02/18/2020 10:[address] [facility] ANION GAP 5.0 5 - 15 MMOL/L 02/18/2020 10:[address] [facility] BUN CREATININE RATIO 13.4 6 - 02/18/2020 10:[address] [facility] EGFR NON-AFR. AMER. 66(L) >90 ML/MIN/1.7 3 M2 02/18/2020 10:[address] [facility] EGFR AFR. AMER. 76(L) >90 ML/MIN/1.7 3 M2 02/18/2020 10:[address] [facility] Comment: NOTE: eGFR is not calculated for patients <18 years of age. This is an estimated GFR (CKD EPI) and should not be used for calculating drug doses. 02/18/2020 9:23 AM CDT us Tramaine Gonzalez MD LABORATORY Final Result [facility] [address] [place] [address], [place] [phone] * (ABNORMAL) CBC W/DIFF AUTOMATED (02/18/2020 9:23 AM CDT) WBC 11.6(H) 4.5 - 11.0 x10'3/uL 02/18/2020 11:[address] [facility] RBC 3.83(L) 4.20 - 5.40 x10'6/uL 02/18/2020 11:[address] [facility] HGB 11.8(L) 12.0 - 16.0 G/DL 02/18/2020 11:[address] [facility] HCT 36.8(L) 38.0 - 48.0 % 02/18/2020 11:[address] [facility] MCV 96.1(H) 80.0 - 94.0 FL 02/18/2020 11:[address] [facility] MCH 30.8 27.0 - 31.0 PG 02/18/2020 11:[address] [facility] MCHC 32.1 32.0 - 36.0 G/DL 02/18/2020 11:[address] [facility] RDW 13.2 11.5 - 14.5 % 02/18/2020 11:[address] [facility] PLT 210 130 - 400 x10'3/uL 02/18/2020 11:[address] [facility] MPV 10.7 9.3 - 12.2 FL 02/18/2020 11:[address] [facility] DIFFERENTIAL TYPE AUTOMATED DIFFERENTIAL 02/18/2020 11:[address] [facility] NEUTROPHILS % 81.5 % 02/18/2020 11:[address] [facility] LYMPHOCYTES % 9.1 % 02/18/2020 11:[address] [facility] MONOCYTES % 9.0 % 02/18/2020 11:[address] [facility] EOSINOPHILS 0.0 % 02/18/2020 11:[address] [facility] BASOPHILS 0.1 % 02/18/2020 11:[address] [facility] IMMATURE GRANS % 0.3 % 02/18/20 20 11:[address] [facility] ABS. NEUTROPHILS TOTAL 9.44(H) 1.80 - 7.70 x10'3/uL 02/18/2020 11:[address] [facility] ABS. LYMPHOCYTES 1.05 1.00 - 4.80 x10'3/uL 02/18/2020 11:[address] [facility] ABS. MONOCYTES 1.04(H) 0.24 - 0.86 x10'3/uL 02/18/2020 11:[address] [facility] ABS. EOSINOPHILS 0.00(L) 0.04 - 0.36 x10'3/uL 02/18/2020 11:[address] [facility] ABS. BASOPHILS 0.01 0.01 - 0.08 x10'3/uL 02/18/2020 11:[address] [facility] ABS. IMMATURE GRANULOCYTES 0.03 0.00 - 0.49 x10'3/uL 02/18/2020 11:[address] [facility] 02/18/2020 9:23 AM CDT Tramaine Gonzalez MD LABORATORY Final Result [facility] [address] [place] [address], [place] [phone] * XR PEL W HIP LAT LT [...] ABO/RH B POSITIVE 02/17/2020 8:[address] [facility] ANTIBODY SCREEN NEGATIVE 02/17/2020 8:[address] [facility] SAMPLE EXPIRATION 02/20/2020,2 359 02/17/2020 8:[address] [facility] 02/17/2020 7:33 AM CDT us Garfield Pepper MD BLOOD BANK TEST ORDERABLES F inal Result [facility] [address] [place] [address], [place] [phone] * (ABNORMAL) BASIC METABOLIC PANEL (02/17/2020 4:40 AM CDT) GLUCOSE 143(H) 70 - 99 MG/DL 02/17/2020 5:[address] [facility] BUN 14 7 - 18 MG/DL 02/17/2020 5:[address] [facility] CREATININE S/P/B 0.83 0.55 - 1.02 MG/DL 02/17/2020 5:[address] [facility] SODIUM S/P/B 137 136 - 145 MMOL/L 02/17/2020 5:[address] [facility] POTASSIUM S/P/B 3.9 3.5 - 5.1 MMOL/L 02/17/2020 5:[address] [facility] CHLORIDE S/P/B 107 100 - 108 MMOL/L 02/17/2020 5:[address] [facility] CO2 23.7 21 - 32 MMOL/L 02/17/2020 5:[address] [facility] CALCIUM S/P/B 9.5 8.5 - 10.1 MG/DL 02/17/2020 5:[address] [facility] ANION GAP 6.3 5 - 15 MMOL/L 02/17/2020 5:[address] [facility] BUN CREATININE RATIO 16.9 6 - 26 02/17/2020 5:[address] [facility] EGFR NON-AFR. AMER. 72(L) >90 ML/MIN/1.7 3 M2 02/17/2020 5:[address] [facility] EGFR AFR. AMER. 84(L) >90 ML/MIN/1.7 3 M2 02/17/2020 5:[address] [facility] Comment: NOTE: eGFR is not calculated for patients <18 years of age. This is an estimated GFR (CKD EPI) and should not be used for calculating drug doses. 02/17/2020 4:40 AM CDT us Asha Eckert MD LABORATORY Final Resul t [facility] [address] [place] [address], [place] [phone] * MAGNESIUM (02/17/2020 4:40 AM CDT) MAGNESIUM 1.8 1.8 - 2.4 MG/DL 02/17/2020 5:[address] [facility] 02/17/2020 4:40 AM CDT Asha Eckert MD LABORATORY Final Resul t [facility] [address] [place] [address], [place] [phone] * PROTHROMBIN TIME, VENOUS (02/17/2020 4:40 AM CDT) PROTIME 11.2 9.6 - 12.2 SEC 02/17/2020 5:[address] [facility] INR 1.0 02/17/2020 5:[address] [facility] Comment: Recommended INR Therapeutic Goals: ??2.0-3.0 Routine Therapy ??2.5-3.5 Mechanical Prosthetic Valves (High Risk) ??3.0-4.0 Acute DC (to prevent Systemic Embolism) The INR is used only for patients on stable oral anticoagulant therapy. It makes no significant contribution to the diagnosis or treatment of patients whose Protime is prolonged for other reasons. 02/17/2020 4:40 AM CDT Asha Eckert MD LABORATORY Final Resul t [facility] [address] [place] [address], [place] [phone] * (ABNORMAL) CBC W/DIFF AUTOMATED (02/17/2020 4:40 AM CDT) WBC 11.5(H) 4.5 - 11.0 x10'3/uL 02/17/2020 6:[address] [facility] RBC 3.86(L) 4.20 - 5.40 x10'6/uL 02/17/2020 6:[address] [facility] HGB 11.8(L) 12.0 - 16.0 G/DL 02/17/2020 6:[address] [facility] HCT 35.9(L) 38.0 - 48.0 % 02/17/2020 6:[address] [facility] MCV 93.0 80.0 - 94.0 FL 02/17/2020 6:[address] [facility] MCH 30.6 27.0 - 31.0 PG 02/17/2020 6:[address] [facility] MCHC 32.9 32.0 - 36.0 G/DL 02/17/2020 6:[address] [facility] RDW 12.8 11.5 - 14.5 % 02/17/2020 6:[address] [facility] PLT 239 130 - 400 x10'3/uL 02/17/2020 6:[address] [facility] MPV 10.0 9.3 - 12.2 FL 02/17/2020 6:[address] [facility] DIFFERENTIAL TYPE AUTOMATED DIFFERENTIAL 02/17/2020 6:[address] [facility] NEUTROPHILS % 82.3 % 02/17/2020 6:[address] [facility] LYMPHOCYTES % 6.6 % 02/17/2020 6:[address] [facility] MONOCYTES % 10.6 % 02/17/2020 6:[address] [facility] EOSINOPHILS 0.0 % 02/17/2020 6:[address] [facility] BASOPHILS 0.2 % 02/17/2020 6:[address] [facility] IMMATURE GRANS % 0.3 % 02/17/20 6:[address] [facility] ABS. NEUTROPHILS TOTAL 9.43(H) 1.80 - 7.70 x10'3/uL 02/17/2020 6:[address] [facility] ABS. LYMPHOCYTES 0.76(L) 1.00 - 4.80 x10'3/uL 02/17/2020 6:[address] [facility] ABS. MONOCYTES 1.21(H) 0.24 - 0.86 x10'3/uL 02/17/2020 6:[address] [facility] ABS. EOSINOPHILS 0.00(L) 0.04 - 0.36 x10'3/uL 02/17/2020 6:[address] [facility] ABS. BASOPHILS 0.02 0.01 - 0.08 x10'3/uL 02/17/2020 6:[address] [facility] ABS. IMMATURE GRANULOCYTES 0.04 0.00 - 0.49 x10'3/uL 02/17/2020 6:[address] [facility] 02/17/2020 4:40 AM CDT Asha Eckert MD LABORATORY Final Resul t [facility] [address] [place] [address], [place] [phone] * XR PELVIS 1 OR 2 VIEWS [...] PM CDT) 02/16/2020 9:09 PM CDT Narrative [facility] - 02/16/2020 10:25 PM CDT ?[facility] ? [address], [place] ? Test Date: ?2020-02-16 Pat Name: ? DIANE KLINE ? Department: ? Room: ? [facility] Gender: ? Female ? Pbx Installer: ?? VB : ?1950 ? Requested By: SEGUN PETER Order Number: [id number] ? Reading MD: ?? Yazan Hushion ? Measurements Intervals ?Zenda ? Rate: ? 72 ? P: ?81 FL: ? 211 ?QRS: ?72 QRSD: ? 86 ? T: ?79 QT: ? 406 ? QTc: ?445 ? Interpretive Statements SINUS RHYTHM WITH FIRST DEGREE AV BLOCK Compared to ECG 2019 21:09:40 First degree AV block now present Other ischemic changes, not STEMI Segun Devine M.D. CRITICAL ALERT ISSUED ON 02-16-2020 21:15:40 Procedure Note Yazan Watkins MD - 02/16/[address] [facility] [address] Test Date: 2020-02-16 Pat Name: DIANE KLINE Department: Room: [facility] Gender: Female Pbx Installer: FIOR : 1950 Requested By: SEGUN DEVINE Order Number: [id number] Reading MD: Yazan Watkins Measurements Intervals [place] Rate: 72 P: 81 FL: 211 QRS: 72 QRSD: 86 T: 79 QT: 406 QTc: 445 Interpretive Statements SINUS RHYTHM WITH FIRST DEGREE AV BLOCK Compared to ECG 2019 21:09:40 First degree AV block now present Other ischemic changes, not STEMI Segun Devine M.D. CRITICAL ALERT ISSUED ON 02-16-2020 21:15:40 us Segun Devine MD ECG ORDERABLES Final Result [facility] RAD * XR CHEST PORTABLE [...] - 37.6 SEC 02/16/2020 9:[address] [facility] 02/16/2020 8:53 PM CDT us Segun Devine MD LABORATORY Final Result [facility] [address] [place] [address], [place] [phone] * PROTIME/INR, VENOUS (02/16/2020 8:53 PM CDT) [facility] PROTIME 11.3 9.6 - 12.2 SEC 02/16/2020 9:[address] [facility] INR 1.0 02/16/2020 9:[address] [facility] Comment: Recommended INR Therapeutic Goals: ??2.0-3.0 Routine Therapy ??2.5-3.5 Mechanical Prosthetic Valves (High Risk) ??3.0-4.0 Acute DC (to prevent Systemic Embolism) The INR is used only for patients on stable oral anticoagulant therapy. It makes no significant contribution to the diagnosis or treatment of patients whose Protime is prolonged for other reasons. 02/16/2020 8:53 PM CDT Segun Devine MD LABORATORY Final Result [facility] [address] [id number], * (ABNORMAL) CBC W/DIFF AUTOMATED (02/16/2020 8:53 PM CDT) [facility] WBC 13.8(H) 4.5 - 11.0 x10'3/uL 02/16/2020 9:[address] [facility] RBC 4.13(L) 4.20 - 5.40 x10'6/uL 02/16/2020 9:[address] [facility] HGB 12.8 12.0 - 16.0 G/DL 02/16/2020 9:[address] [facility] HCT 39.0 38.0 - 48.0 % 02/16/2020 9:[address] [facility] MCV 94.4(H) 80.0 - 94.0 FL 02/16/2020 9:[address] [facility] MCH 31.0 27.0 - 31.0 PG 02/16/2020 9:[address] [facility] MCHC 32.8 32.0 - 36.0 G/DL 02/16/2020 9:[address] [facility] RDW 12.7 11.5 - 14.5 % 02/16/2020 9:[address] [facility] PLT 249 130 - 400 x10'3/uL 02/16/2020 9:[address] [facility] MPV 10.3 9.3 - 12.2 FL 02/16/2020 9:[address] [facility] DIFFERENTIAL TYPE AUTOMATED DIFFERENTIAL 02/16/2020 9:[address] [facility] NEUTROPHILS % 86.5 % 02/16/2020 9:[address] [facility] LYMPHOCYTES % 5.3 % 02/16/2020 9:[address] [facility] MONOCYTES % 7.5 % 02/16/2020 9:[address] [facility] EOSINOPHILS 0.1 % 02/16/2020 9:[address] [facility] BASOPHILS 0.1 % 02/16/2020 9:[address] [facility] IMMATURE GRANS % 0.5 % 02/16/20 20 9:[address] [facility] ABS. NEUTROPHILS TOTAL 11.93(H) 1.80 - 7.70 x10'3/uL 02/16/2020 9:[address] [facility] ABS. LYMPHOCYTES 0.73(L) 1.00 - 4.80 x10'3/uL 02/16/2020 9:[address] [facility] ABS. MONOCYTES 1.03(H) 0.24 - 0.86 x10'3/uL 02/16/2020 9:[address] [facility] ABS. EOSINOPHILS 0.01(L) 0.04 - 0.36 x10'3/uL 02/16/2020 9:[address] [facility] ABS. BASOPHILS 0.02 0.01 - 0.08 x10'3/uL 02/16/2020 9:[address] [facility] ABS. IMMATURE GRANULOCYTES 0.07 0.00 - 0.49 x10'3/uL 02/16/2020 9:[address] [facility] 02/16/2020 8:53 PM CDT us Segun Devine MD LABORATORY Final Result [facility] [address] [place] [id number], * (ABNORMAL) COMPREHENSIVE METABOLIC PANEL (02/16/2020 8:53 PM CDT) GLUCOSE 146(H) 70 - 99 MG/DL 02/16/2020 9:[address] [facility] BUN 14 7 - 18 MG/DL 02/16/2020 9:[address] [facility] CREATININE S/P/B 0.82 0.55 - 1.02 MG/DL 02/16/2020 9:[address] [facility] SODIUM S/P/B 139 136 - 145 MMOL/L 02/16/2020 9:[address] [facility] POTASSIUM S/P/B 4.0 3.5 - 5.1 MMOL/L 02/16/2020 9:[address] [facility] Comment:SLIGHT HEMOLYSIS, RE SULT MAY BE AFFECTED. CHLORIDE S/P/B 107 100 - 108 MMOL/L 02/16/2020 9:[address] [facility] CO2 26.0 21 - 32 MMOL/L 02/16/2020 9:[address] [facility] CALCIUM S/P/B 9.6 8.5 - 10.1 MG/DL 02/16/2020 9:[address] [facility] BILIRUBIN TOTAL S/P/B 0.4 0.2 - 1.2 MG/DL 02/16/2020 9:[address] [facility] Comment: THIS ASSAY IS NOT RECOMMENDED FOR PATIENTS UNDERGOING TREATMENT WITH ELTROMBOPAG DUE TO THE POTENTIAL FOR FALSELY ELEVATED RESULTS. TOTAL PROTEIN S/P/B 7.6 6.4 - 8.2 G/DL 02/16/2020 9:[address] [facility] ALBUMIN S/P/B 3.9 3.4 - 5.0 G/DL 02/16/2020 9:[address] [facility] AST 24 15 - 37 U/L 02/16/2020 9:[address] [facility] Comment:SLIGHT HEMOLYSIS, RE SULT MAY BE AFFECTED. ALT 18 14 - 55 U/L 02/16/2020 9:[address] [facility] ALKALINE PHOSPHATASE S/P/B 88 50 - 136 U/L 02/16/2020 9:[address] [facility] ANION GAP 6.0 5 - 15 MMOL/L 02/16/2020 9:[address] [facility] BUN CREATININE RATIO 17.0 6 - 26 02/16/2020 9:[address] [facility] A/G RATIO 1.1 1.0 - 2.0 RATIO 02/16/2020 9:55 PM [facility] EGFR NON-AFR. AMER. 74(L) >90 ML/MIN/1.7 3 M2 02/16/2020 9:[address] [facility] EGFR AFR. AMER. 85(L) >90 ML/MIN/1.7 3 M2 02/16/2020 9:55 PM CDT [facility] Comment: NOTE: eGFR is not calculated for patients <18 years of age. This is an estimated GFR (CKD EPI) and should not be used for calculating drug doses. 02/16/2020 8:53 PM CDT Segun Devine MD LABORATORY Final Result [facility] [address] [place] [address], [place] [phone] documented in this encounter Visit Diagnoses Not [...] Arteaga CRNA)1500 (Automatically Held - Provider: Adriel Martines)1619 (OCT Unhold - Provider: User Epic) ceFAZolin [...] Metcalf RN)1351 (OCT Hold - Provider: User Recorrido - Reason: Unreviewed Transfer Orders)1619 (OCT Unhold - Provider: User Recorrido) 0855 (See Alternative - Provider: Arminda Dove RN) 0813 (See Alternative - Provider: Arminda Dove RN) famotidine (PEPCID) tablet 20 mg(Linked Group 1) 20 mg, Oral, Daily, First dose (after last modification) on Fri02/17/20 at 0900, Until Discontinued, Renally adjusted for CrCl <50ml/min 0947 (See Alternative - Provider: Honey Metcalf RN)1351 (OCT Hold - Provider: User Recorrido - Reason: Unreviewed Transfer Orders)1619 (OCT Unhold - Provider: User Recorrido) 0855 (Given - Provider: Arminda Dove RN) [...] Provider: Honey Metcalf RN - Reason: NPO)1351 ([facility] Hold - Provider: User Epic - Reason: Unreviewed Transfer Orders)1619 ([facility] Unhold - Provider: User Epic)2200 (Given - [...] only - just prior to incision 1351 ([facility] Hold - Provider: User Epic - Reason: [...] Misti Barger, RN)1942 (New Bag - Provider: Arminad Dove, TRACIE) PRN Medication Order 02/17/2020 02/18/2020 [...] <50ml/min documented in this encounter Care Teams Estimator Jewelry Relationship Specialty Start Date End Date Ramirez Gibson MD PCP - General FAMILY PRACTICE 03/08/19 documented as of this encounter
--- OUTSIDE RECORDS SUMMARY | 2024-08-11 05:10 | XMS_ITS | Clinical Summary ---
Author Organization [facility] Address [facility]. [place], [place] [id number] [place] [id number] Care Team Providers Care Case Preparer And Liner Name Role Phone Chuck Gibson MD Primary Care Provider [phone] Allergies No known active allergies Medications Cholecalciferol [...] Problem Noted Date Diagnosed Date Hip fracture ([facility]) 02/16/2020 Social History Tobacco Use Types Packs/Day [...] this topic Medical Devices Implanted Type Area Rolling Machine Tender Device Identifier Shelf Expiration Date Model / Serial / Lot Depuy Articul/Bahman Self Centering Bipolar Head Implanted:Qty: 1 on 02/17/2020 by Garfield Canseco MD at [facility] Hip Components Left: Hip [employer] 09/24/2024 1035-47-0 00 / / [id number] Depuy Articul/Bahman Femoral Head Implanted:Qty: 1 on 02/17/2020 by Garfield Canseco MD at [facility] Hip Components Left: Hip [employer] 08/24/2024 1365-11-0 00 / / [id number] Depuy Femoral Stem [employer] Hip Prosthesis Cementless Implanted:Qty: 1 on 02/17/2020 by Garfield Canseco MD at [facility] Hip Components Left: Hip [employer] 09/24/2029 1010-11-0 60 / / [id number] Procedures Procedure Name Priority Date/Time Associated Diagnosis Comments HEPATITIS PANEL,ACUTE Routine 02/02/2023 2:56 AM CDT from Last 3 Months or Most Recently Relevant to Health Maintenance Results * HEPATITIS PANEL,ACUTE (02/02/2023 2:56 AM CDT) HEPATITIS B SURFACE AG NON-REACTI VE NON-REACTI VE 02/03/2023 3:43 AM CDT [facility] HEP B CORE IGM NON-REACTI VE NON-REACTI VE 02/03/2023 4:10 AM CDT [facility] HAV IGM NON-REACTI VE NON-REACTI VE 02/03/2023 4:10 AM CDT [facility] HEPATITIS C AB NON-REACTI VE NON-REACTI VE 02/03/2023 4:10 AM CDT [facility] 02/02/2023 2:56 AM CDT us Del Tang MD,PHD LABORATORY Final Resu lt [facility] [address] [place] [address], from Last 3 Months or Most Recently Relevant to Health Maintenance Additional Health Concerns Infection Onset Date Last Indicated ESBL - Extended Spectrum Bet a-lactamase Comment:02/02/23 +ESBL Urine 02/02/2023 02/02/2023 Insurance MEDICARE MEDICAID Advance Directives Documents on File Type Date Recorded Patient Scale Adjuster Expl anation Advance Directives and Living Will 02/03/2023 2:25 PM Advance Directives and Living Will 02/20/2020 11:12 AM 06/27/18 POA FOR HEALTHCARE Advance Directives and Living Will 02/20/2020 11:10 AM 09/29/19 POLST FORM * Full Code (Latest Code Status on File) Date Activated Date Inactivated Comments 02/16/2020 11:06 PM 02/19/2020 9:13 PM Care Teams Case Preparer And Liner Relationship Specialty Start Date End Date Chuck Gibson MD PCP - General FAMILY PRACTICE 03/08/19
--- OUTSIDE RECORDS SUMMARY | 2024-08-11 05:10 | XMS_ITS | Encounter Summary ---
Author Organization [facility] Address [address] [place] [address]. [place], [place] [address] [place] [id number] Care Team Providers Care Fagot Maker Name Role Phone Ramirez Gibson MD Primary Care Provider [phone] Reason for Referral * (Routine) - Canceled Specialty Diagnoses / Procedures Referred By Contac t Referred To Contact Procedures PT eval and treat Garfield Pepper MD Phone: tel: fax: Referral ID Status Reason Start Date Expiration Date V isits Requested Visits Authorized [id number] Canceled 02/17/2020 03/18/2021 1 1 * Surgical (Routine) - Closed Specialty Diagnoses / Procedures Referred By Contac t Referred To Contact Procedures Case request operating room: ARTHROPLASTY HIP ROMEO Garfield Pepper MD Phone: tel: fax: Referral ID Status Reason Start Date Expiration Date Visits Re quested Visits Authorized [id number] Closed 02/17/2020 03/18/2021 1 1 Reason for Visit * Reason Comments Fall Left hip fracture pe r [place]ays from [place] * Auth/Cert Specialty Diagnoses / Procedures Referred By Contac t Referred To Contact Diagnoses Hip fx, left, closed, initial encounter (CMS/HCC HHS/HCC) Hip fracture (CMS/[facility]) Procedures NA Referral ID Status Reason Start Date Expiration Date Visits Re quested Visits Authorized [id number] 1 1 Encounter Details Date Type Department Care Team (Late st Contact Info) Description 02/16/2020 8:42 PM CDT - 02/19/2020 7:00 PM CDT Hospital Encounter [facility] Med/Surg 3rd Floor [facility] [place] [address] Segun Devine MD 1 [facility] [place] [address] Asha Eckert MD 1 [place] [address] [phone] (Work) Tramaine Gonzalez MD ONE [facility] [place] [address] [phone] (Work) Fall (Left hip fracture per [place]ays from [place]) Discharge Disposition: [facility] Facility Social History Tobacco Use Types Packs/Day [...] TRAMAINE GONZALEZ MD Hospital Diagnosis: Hip fracture ([facility]) Procedures: 02/17/20 - L hip hemiarthroplasty Discharged Condition: Good Code Status: Full Code Indication for Admission: Chief Complaint Patient presents with ??? Fall Left hip fracture per [place] from [place] History of Present Illness: Diane Kline is [...] of 02/16/20 ECG 12 lead ?? Narrative ?[place] ?[address] [place] ?Te st Date: ?2020-02-16 Pat Name: ?DIANE BROWN ?Department: ?Room: ?[id number] Gender: ?Female ?Coronary Clinical Specialist: ?VB : ?1950 ?Requested By: SEGUN PETER Order Number: [id number] ?Reading MD: ?Measurements Intervals ?[place] ? Rate: ?72 ?P: ?81 NM: ?211 ?QRS: ?72 QRSD: ?86 ?T: ?79 [...] tablet ?? enoxaparin 40 MG/0.4ML Soln Disposition: [facility] Facility Time Spent on Discharge: Greater than [...] CDT PT WAS DC ON THE TO [facility] AND REHAB HAD BEEN PLANNED. THE NH [...] REQUIRED. PT ANTICIPATED TO HAVE TRAVELED BY [facility] BUT SW WAS NOT IN HOUSE AND DID NOT ARRANGE. NO NEW PRESCREEN REQUIRED TO RETURN TO THE NH. SW HAD LEFT NUMBERS TO CALL REPORT AND FAX DC INSTRUCTIONS. RN AWARE OF PLANS AND SW ACTIONS. NO FURTHER NEEDS NOTED. SW COMPLETE AND CASE CLOSED. 02/22/20 1482 Discharge Planning Support Systems Children Type of Residence skilled nursing Assistance Needed Yes Patient expects to be discharged to: Jail * Beverly Alston PTA - 02/19/2020 12:16 PM CDT 02/19/20 7001 Therapy Visit Ordering Provider Ajith Clayton Room [...] Recommendation PT Recommendation PT during Hospitalization;PT at [facility] Facility Plan PT Treatments/Interventions Therapeutic Exercises;Therapeutic Activities [...] CONFIRMED PLANS FOR PT TO RETURN TO [facility] UPON DC. PT IS FROM THIS FACILITY. PT CAN RETURN ON THE WEEKEND. CALL ALYSE TO NOTIFY OF DC AT [phone] WITH ADMISSIONS. CALL REPORT TO [phone] AND FAX DC INSTRUCTION TO [phone] AND DTR KG AT [phone]. PT INSURED WITH MEDICARE SUCH THAT WITH HER INS AMB OK FOR EITHER [facility] OR [facility]. PER ROUNDS PT IS LIKELY TO BE READY FOR DC ON THE WEEKEND. VERBAL INFORMATION REGARDING IMPORTANT MESSAGE FROM MEDICARE PROVIDED TO PATIENT SPORTS OFFICIAL SLIM PT IS CONFUSED. . EDUCATION PROVIDED [...] with KCl 20 mEq 75 mL/hr (02/18/20 7052) PRN Meds: acetaminophen, ketorolac, ondansetron Labs: Recent [...] ECG 12 lead ?? Narrative ?? [facility] Test Date: 2020-02-16 Pat Name: DIANE KLINE Department: Room: [place] [address] Gender: Female Coronary Clinical Specialist: FIOR : 1950 Requested By: SEGUN DEVINE Order Number: [id number] Reading MD: Measurements Intervals [place] Rate: 72 P: 81 NM: 211 QRS: 72 QRSD: 86 T: 79 [...] Home Living Type of Home Other (Comment) ([place] - [facility] CARE) Prior Function Fall History [...] LEFT AT BEDSIDE TO BE SENT TO [place] WITH PATIENT Patient/Family Training Bed Mobility X [...] Recommendation PT Recommendation PT during Hospitalization;PT at [facility] Facility Plan PT Treatments/Interventions Therapeutic Exercises;Therapeutic Activities [...] dry, moves foot up and down Assessment 81-[id number]-bcutvxpsu s/p L hip hemiarthroplasty on 02/16/2020 Plan [...] given the difficulty of transporting the patient. [facility], [place] [address] [place] [address] GARFIELD PEPPER MD Filed Vitals: 02/17/20219902/17/20 2337 [...] remained clean, dry, and intact during shift. HIGH SCHOOL GUIDANCE COUNSELOR notified this RN that patient had a [...] for Falls/Injury Outcome: Not Progressing Informed by [facility] that patient can be impulsive. Patient [...] Outcome: Progressing Planning to send back to [facility] [place] Problem: Pain control/comfort Goal: Promote pain control/comfort Outcome: Progressing Patient appears to be resting comfortably this shift. Dr. Gonzalez notified that patient clenches herjaw shut and will not swallow food or pills. SBP has risen to the 160's. Patient's daughter, Kg, is requesting IVP toradol if needed. Dr. Gonzalez has agreed to this. HONEY METCALF RN * Yarelis Kaylin Nation, [facility] [place] - 02/17/2020 4:18 PM CDT PT IS A 69 YR OLD FEMALE ADMITTED FROM [facility] WHERE SHE IS REPORTED TO BE A LONG TERMRESIDENT. PT IS AT BASELINE CONFUSED PER THE NURSING TEAM. PT IS TO SURGERY TODAY FOR A HIP FRACTURE. PT IS UNABLE TO PROVIDE INFORMATION BUT SW WILL FOLLOW UP WITH HER DTR MARISELA KLINE TOMORROW FOLLOWING SURGERY TO CONFIRM INFORMATION OBTAINED FROM STAFF AND REGARDING PLANS FOR RETURN TO THE [place] UPON [place]. 02/17/20 9124 Referral Data Referral Reason Discharge Planning Source of Information Chart review (STAFF) Patient Information Primary Caregiver ([place] STAFF) Support System Immediate family Baseline ADL's Functional Status Minimum assistance;Moderate assistance Type of Residence skilled nursing Ambulation Assistance Yes Bathing/Grooming Assistance Yes Dressing [...] Plan Support Systems Children Type of Residence skilled nursing Assistance Needed Yes Patient expects to be discharged to: Jail * Tramaine Gonzalez MD - 02/17/2020 11:54 [...] 12 lead ?? Narrative ?? [facility] [address] Test Date: 2020-02-16 Pat Name: DIANE KLINE Department: Room: [id number] Gender: Female Coronary Clinical Specialist: FIOR : 1950 Requested By: SEGUN DEVINE Order Number: [id number] Reading MD: Measurements Intervals [place] Rate: 72 P: 81 NM: 211 QRS: 72 QRSD: 86 T: 79 [...] >428 mL in bladder. Physician notified. 16 Syriac Frazier inserted this shift. documented in this [...] file Gets together: Not on file Attends religion service: Not on file Active member of [...] No results for input(s): PH, PCO2, PO2, E1HDUCOSRQHL, BICARBWB, BASEDEFICIT, BASEEXCESS in the [id number] hours. Imagining & Other Studies Xr Chest Portable Result Date: 02/16/2020 IMPRESSION: No acute chest disease identified. Results for orders placed or performed during the hospital encounter of 02/16/20 ECG [address] [facility] [address] [place] [address] Test Date: 2020-02-16 Pat Name: DIANE KLINE Department: Room: [place] [address] Gender: Female Coronary Clinical Specialist: FIOR : 1950 Requested By: SEGUN DEVINE Order Number: [id number] Reading MD: Measurements Intervals [place] Rate: 72 P: 81 NM: 211 QRS: 72 QRSD: 86 T: 79 [...] femoral neck fracture. She lives in a long-term. History is obtained from her daughter, Kg. Patient has dementia and is nonverbal. She is able to walk and, in fact, they have had trouble getting her to stop walking. This is improved somewhat as she has been transition to a memory care unit. She fell yesterday while at the long-term. Past Medical History: Diagnosis Date ??? Atherosclerosis [...] file Gets together: Not on file Attends religion service: Not on file Active member of [...] on regular diet with finger foods at [facility]. ANGE JOHN RN documented in this encounter OR Notes * Op Note - Garfield Pepper MD - 02/18/2020 12:00 AM CDT SURGEON: Garfield Pepper MD SHOE STAINER: JON Connor PREOPERATIVE DIAGNOSIS: Left femoral neck [...] transitioned to recovery room in stable condition. #[id number] /NTS * Brief Op Note - Garfield Pepper MD - 02/17/2020 4:03 PM CDT ARTHROPLASTY HIP ROMEO ANTERIOR APPROACH Procedure Note Diane Kline 02/16/2020 - 02/17/2020 1525 Procedure(s) (LRB): ARTHROPLASTY HIP ROMEO ANTERIOR APPROACH (Left) Surgeon(s): Garfield Pepper MD Staff: Study Manager: JON Doll; JON Ramos Relief Circulating Nurse: Peg Woods RN Circulating Nurse 1: Madeline Delgadillo RN Scrub Person 1: Obdulio Cruz, MEDICAL COLLECTIONS Scrub Person 2: Tony Hart CST Anesthesia: Spinal Anesthesiologist: Eros Sterling MD; Consuelo Coronado MD CHIEF AIRPORT GUIDE: Sharon Coronado CRNA; Brandy Arteaga CRNA Pre-Op [...] Fall Left hip fracture per [place]ays from [place] History of Present Illness The patient is a very pleasant 69-year-old female examined the emergency department. She presents today with left hip pain. The patient is nonverbal at baseline and presents from a long-term care facility. According to long-term staff, the patient was getting dressed and [...] ??? Dementia (CMS/HCC) ??? Glaucoma ??? Seizures (CMS/[facility]) PAST SURGICAL HISTORY: No past surgical history [...] encounter of 02/16/20 ECG 12 lead Narrative [address] Test Date: 2020-02-16 Pat Name: DIANE KLINE Department: Room: [facility] Gender: Female Coronary Clinical Specialist: FIOR : 1950 Requested By: SEGUN DEVINE Order Number: [id number] Reading MD: Yazan Watkins Measurements Intervals [place] Rate: 72 P: 81 NM: 211 QRS: 72 QRSD: 86 T: 79 [...] HIP LAT LT Final Result by User, [id number] (02/16 1700) Examination: AP pelvis and left [...] HIP LT 1V Final Result by User, [email or web address] (02/16 6189) Examination: Intraoperative fluoroscopy Exam date/time: 02/17/2020 3:46 [...] OR 2 VIEWS Final Result by User, [email or web address] (02/16 2224) Examination: XR PELVIS 1 OR [...] HIP LT 2V Final Result by User, [email or web address] (02/15 2209) Examination: XR HIP LT 2V [...] XR CHEST PORTABLE Final Result by User, [email or web address] (02/15 2110) Examination: XR CHEST PORTABLE Exam [...] Impression Hip fx, left, closed, initial encounter ([facility]) (Primary) Disposition: Admit Segun Devine MD 02/20/20 0559 * Marlys Mireles RN - 02/16/2020 8:42 PM CDT Bed: 09 Expected date: Expected time: Means of arrival: Comments: [id number] * Grecia Hamm RN - 02/16/2020 8:35 PM CDT EMS from [facility], Pt fell this morning, pt [...] - 99 MG/DL 02/19/2020 6:24 AM CDT [facility] BUN 12 7 - 18 MG/DL 02/19/2020 6:24 AM CDT [facility] CREATININE S/P/B 0.63 0.55 - 1.02 MG/DL 02/19/2020 6:24 AM CDT [facility] SODIUM S/P/B 139 136 - 145 MMOL/L 02/19/2020 6:24 AM CDT [facility] POTASSIUM S/P/B 4.1 3.5 - 5.1 MMOL/L 02/19/2020 6:24 AM CDT [facility] CHLORIDE S/P/B 110(H) 100 - 108 MMOL/L 02/19/2020 6:24 AM CDT [facility] CO2 27.3 21 - 32 MMOL/L 02/19/2020 6:24 AM CDT [facility] CALCIUM S/P/B 8.9 8.5 - 10.1 MG/DL 02/19/2020 6:24 AM CDT [facility] ANION GAP 1.7(L) 5 - 15 MMOL/L 02/19/2020 6:24 AM CDT [facility] BUN CREATININE RATIO 19.0 6 - 02/19/2020 6:24 AM CDT [facility] EGFR NON-AFR. AMER. >90 >90 ML/MIN/1.7 3 M2 02/19/2020 6:24 AM CDT [facility] EGFR AFR. AMER. >90 >90 ML/MIN/1.7 3 M2 02/19/2020 6:24 AM T [facility] Comment: NOTE: eGFR is not calculated for patients <18 years of age. This is an estimated GFR (CKD EPI) and should not be used for calculating drug doses. 02/19/2020 5:31 AM CDT us Tramaine Gonzalez MD LABORATORY Final Result [facility] [address] [place] [address], [place] [phone] * (ABNORMAL) CBC W/DIFF AUTOMATED (02/19/2020 5:31 AM CDT) [facility] WBC 8.5 4.5 - 11.0 x10'3/uL 02/19/2020 5:54 AM CDT [facility] RBC 3.56(L) 4.20 - 5.40 x10'6/uL 02/19/2020 5:54 AM CDT [facility] HGB 11.2(L) 12.0 - 16.0 G/DL 02/19/2020 5:54 AM CDT [facility] HCT 33.6(L) 38.0 - 48.0 % 02/19/2020 5:54 AM CDT [facility] MCV 94.4(H) 80.0 - 94.0 FL 02/19/2020 5:54 AM CDT [facility] MCH 31.5(H) 27.0 - 31.0 PG 02/19/2020 5:54 AM CDT [facility] MCHC 33.3 32.0 - 36.0 G/DL 02/19/2020 5:54 AM CDT [facility] RDW 13.2 11.5 - 14.5 % 02/19/2020 5:54 AM CDT [facility] PLT 172 130 - 400 x10'3/uL 02/19/2020 5:54 AM CDT [facility] MPV 10.4 9.3 - 12.2 FL 02/19/2020 5:54 AM CDT [facility] DIFFERENTIAL TYPE AUTOMATED DIFFERENTIAL 02/19/2020 5:54 AM CDT [facility] NEUTROPHILS % 71.7 % 02/19/2020 5:54 AM CDT [facility] LYMPHOCYTES % 12.4 % 02/19/2020 5:54 AM CDT [facility] MONOCYTES % 14.7 % 02/19/2020 5:54 AM CDT [facility] EOSINOPHILS 0.4 % 02/19/2020 5:54 AM CDT [facility] BASOPHILS 0.2 % 02/19/2020 5:54 AM CDT [facility] IMMATURE GRANS % 0.6 % 02/19/20 20 5:54 AM CDT [facility] ABS. NEUTROPHILS TOTAL 6.08 1.80 - 7.70 x10'3/uL 02/19/2020 5:54 AM CDT [facility] ABS. LYMPHOCYTES 1.05 1.00 - 4.80 x10'3/uL 02/19/2020 5:54 AM CDT [facility] ABS. MONOCYTES 1.25(H) 0.24 - 0.86 x10'3/uL 02/19/2020 5:54 AM CDT [facility] ABS. EOSINOPHILS 0.03(L) 0.04 - 0.36 x10'3/uL 02/19/2020 5:54 AM CDT [facility] ABS. BASOPHILS 0.02 0.01 - 0.08 x10'3/uL 02/19/2020 5:54 AM CDT [facility] ABS. IMMATURE GRANULOCYTES 0.05 0.00 - 0.49 x10'3/uL 02/19/2020 5:54 AM CDT [facility] 02/19/2020 5:31 AM CDT us Tramaine Gonzalez MD LABORATORY Final Result [facility] [address] [place] [address], [place] [phone] * (ABNORMAL) BASIC METABOLIC PANEL (02/18/2020 9:23 AM CDT) [facility] GLUCOSE 102(H) 70 - 99 MG/DL 02/18/2020 10:26 AM T [facility] BUN 12 7 - 18 MG/DL 02/18/2020 10:26 AM T [facility] CREATININE S/P/B 0.90 0.55 - 1.02 MG/DL 02/18/2020 10:26 AM T [facility] SODIUM S/P/B 136 136 - 145 MMOL/L 02/18/2020 10:26 AM T [facility] POTASSIUM S/P/B 4.3 3.5 - 5.1 MMOL/L 02/18/2020 10:26 AM T [facility] CHLORIDE S/P/B 109(H) 100 - 108 MMOL/L 02/18/2020 10:26 AM T [facility] CO2 22.0 21 - 32 MMOL/L 02/18/2020 10:26 AM T [facility] CALCIUM S/P/B 9.1 8.5 - 10.1 MG/DL 02/18/2020 10:26 AM [facility] ANION GAP 5.0 5 - 15 MMOL/L 02/18/2020 10:26 AM T [facility] BUN CREATININE RATIO 13.4 6 - 26 02/18/2020 10:26 AM T [facility] EGFR NON-AFR. AMER. 66(L) >90 ML/MIN/1.7 3 M2 02/18/2020 10:26 AM T [facility] EGFR AFR. AMER. 76(L) >90 ML/MIN/1.7 3 M2 02/18/2020 10:26 AM [facility] Comment: NOTE: eGFR is not calculated for patients <18 years of age. This is an estimated GFR (CKD EPI) and should not be used for calculating drug doses. 02/18/2020 9:23 AM CDT Tramaine Gonzalez MD LABORATORY Final Result [facility] [address] [place] [address], [place] [phone] * (ABNORMAL) CBC W/DIFF AUTOMATED (02/18/2020 9:23 AM CDT) Pathologist [facility] WBC 11.6(H) 4.5 - 11.0 x10'3/uL 02/18/2020 11:53 AM CDT [facility] RBC 3.83(L) 4.20 - 5.40 x10'6/uL 02/18/2020 11:53 AM CDT [facility] HGB 11.8(L) 12.0 - 16.0 G/DL 02/18/2020 11:53 AM CDT [facility] HCT 36.8(L) 38.0 - 48.0 % 02/18/2020 11:53 AM CDT [facility] MCV 96.1(H) 80.0 - 94.0 FL 02/18/2020 11:53 AM CDT [facility] MCH 30.8 27.0 - 31.0 PG 02/18/2020 11:53 AM CDT [facility] MCHC 32.1 32.0 - 36.0 G/DL 02/18/2020 11:53 AM CDT [facility] RDW 13.2 11.5 - 14.5 % 02/18/2020 11:53 AM CDT [facility] PLT 210 130 - 400 x10'3/uL 02/18/2020 11:53 AM CDT [facility] MPV 10.7 9.3 - 12.2 FL 02/18/2020 11:53 AM CDT [facility] DIFFERENTIAL TYPE AUTOMATED DIFFERENTIAL 02/18/2020 11:53 AM CDT [facility] NEUTROPHILS % 81.5 % 02/18/2020 11:53 AM CDT [facility] LYMPHOCYTES % 9.1 % 02/18/2020 11:53 AM T [facility] MONOCYTES % 9.0 % 02/18/2020 11:53 AM CDT [facility] EOSINOPHILS 0.0 % 02/18/2020 11:53 AM CDT [facility] BASOPHILS 0.1 % 02/18/2020 11:53 AM T [facility] IMMATURE GRANS % 0.3 % 02/18/20 20 11:53 AM T [facility] ABS. NEUTROPHILS TOTAL 9.44(H) 1.80 - 7.70 x10'3/uL 02/18/2020 11:53 AM T [facility] ABS. LYMPHOCYTES 1.05 1.00 - 4.80 x10'3/uL 02/18/2020 11:53 AM [facility] ABS. MONOCYTES 1.04(H) 0.24 - 0.86 x10'3/uL 02/18/2020 11:53 AM [facility] ABS. EOSINOPHILS 0.00(L) 0.04 - 0.36 x10'3/uL 02/18/2020 11:53 AM T [facility] ABS. BASOPHILS 0.01 0.01 - 0.08 x10'3/uL 02/18/2020 11:53 AM [facility] ABS. IMMATURE GRANULOCYTES 0.03 0.00 - 0.49 x10'3/uL 02/18/2020 11:53 AM [facility] 02/18/2020 9:23 AM CDT Tramaine Gonzalez MD LABORATORY Final Result [facility] [address] [place] [address], [place] [phone] * XR PEL W HIP LAT LT [...] ABO/RH B POSITIVE 02/17/2020 8:50 AM CDT [facility] ANTIBODY SCREEN NEGATIVE 02/17/2020 8:50 AM CDT [facility] SAMPLE EXPIRATION 02/20/2020,2 359 02/17/2020 8:50 AM CDT [facility] 02/17/2020 7:33 AM CDT us Garfield Pepper MD BLOOD BANK TEST ORDERABLES F inal Result [facility] [address] [place] [address], [place] [phone] * (ABNORMAL) BASIC METABOLIC PANEL (02/17/2020 4:40 AM CDT) GLUCOSE 143(H) 70 - 99 MG/DL 02/17/2020 5:25 AM CDT [facility] BUN 14 7 - 18 MG/DL 02/17/2020 5:25 AM CDT [facility] CREATININE S/P/B 0.83 0.55 - 1.02 MG/DL 02/17/2020 5:25 AM CDT [facility] SODIUM S/P/B 137 136 - 145 MMOL/L 02/17/2020 5:25 AM CDT [facility] POTASSIUM S/P/B 3.9 3.5 - 5.1 MMOL/L 02/17/2020 5:25 AM CDT [facility] CHLORIDE S/P/B 107 100 - 108 MMOL/L 02/17/2020 5:25 AM CDT [facility] CO2 23.7 21 - 32 MMOL/L 02/17/2020 5:25 AM CDT [facility] CALCIUM S/P/B 9.5 8.5 - 10.1 MG/DL 02/17/2020 5:25 AM CDT [facility] ANION GAP 6.3 5 - 15 MMOL/L 02/17/2020 5:25 AM CDT [facility] BUN CREATININE RATIO 16.9 6 - 26 02/17/2020 5:25 AM CDT [facility] EGFR NON-AFR. AMER. 72(L) >90 ML/MIN/1.7 3 M2 02/17/2020 5:25 AM CDT [facility] EGFR AFR. AMER. 84(L) >90 ML/MIN/1.7 3 M2 02/17/2020 5:25 AM CDT [facility] Comment: NOTE: eGFR is not calculated for patients <18 years of age. This is an estimated GFR (CKD EPI) and should not be used for calculating drug doses. 02/17/2020 4:40 AM CDT Asha Eckert MD LABORATORY Final Resul t [facility] [address] [place] [address], [place] [phone] * MAGNESIUM (02/17/2020 4:40 AM CDT) MAGNESIUM 1.8 1.8 - 2.4 MG/DL 02/17/2020 5:25 AM CDT [facility] 02/17/2020 4:40 AM CDT Asha Eckert MD LABORATORY Final Resul t [facility] [address] [place] [address], [place] [phone] * PROTHROMBIN TIME, VENOUS (02/17/2020 4:40 AM CDT) PROTIME 11.2 9.6 - 12.2 SEC 02/17/2020 5:31 AM CDT [facility] INR 1.0 02/17/2020 5:31 AM CDT [facility] Comment: Recommended INR Therapeutic Goals: ??2.0-3.0 Routine Therapy ??2.5-3.5 Mechanical Prosthetic Valves (High Risk) ??3.0-4.0 Acute SC (to prevent Systemic Embolism) The INR is used only for patients on stable oral anticoagulant therapy. It makes no significant contribution to the diagnosis or treatment of patients whose Protime is prolonged for other reasons. 02/17/2020 4:40 AM CDT us Asha Eckert MD LABORATORY Final Resul t [facility] [address] [place] [address], * (ABNORMAL) CBC W/DIFF AUTOMATED (02/17/2020 4:40 AM CDT) WBC 11.5(H) 4.5 - 11.0 x10'3/uL 02/17/2020 6:48 AM CDT [facility] RBC 3.86(L) 4.20 - 5.40 x10'6/uL 02/17/2020 6:48 AM CDT [facility] HGB 11.8(L) 12.0 - 16.0 G/DL 02/17/2020 6:48 AM CDT [facility] HCT 35.9(L) 38.0 - 48.0 % 02/17/2020 6:48 AM CDT [facility] MCV 93.0 80.0 - 94.0 FL 02/17/2020 6:48 AM CDT [facility] MCH 30.6 27.0 - 31.0 PG 02/17/2020 6:48 AM CDT [facility] MCHC 32.9 32.0 - 36.0 G/DL 02/17/2020 6:48 AM CDT [facility] RDW 12.8 11.5 - 14.5 % 02/17/2020 6:48 AM CDT [facility] PLT 239 130 - 400 x10'3/uL 02/17/2020 6:48 AM CDT [facility] MPV 10.0 9.3 - 12.2 FL 02/17/2020 6:48 AM CDT [facility] DIFFERENTIAL TYPE AUTOMATED DIFFERENTIAL 02/17/2020 6:48 AM CDT [facility] NEUTROPHILS % 82.3 % 02/17/2020 6:48 AM CDT [facility] LYMPHOCYTES % 6.6 % 02/17/2020 6:48 AM CDT [facility] MONOCYTES % 10.6 % 02/17/2020 6:48 AM CDT [facility] EOSINOPHILS 0.0 % 02/17/2020 6:48 AM CDT [facility] BASOPHILS 0.2 % 02/17/2020 6:48 AM CDT [facility] IMMATURE GRANS % 0.3 % 02/17/20 20 6:48 AM CDT [facility] ABS. NEUTROPHILS TOTAL 9.43(H) 1.80 - 7.70 x10'3/uL 02/17/2020 6:48 AM CDT [facility] ABS. LYMPHOCYTES 0.76(L) 1.00 - 4.80 x10'3/uL 02/17/2020 6:48 AM CDT [facility] ABS. MONOCYTES 1.21(H) 0.24 - 0.86 x10'3/uL 02/17/2020 6:48 AM CDT [facility] ABS. EOSINOPHILS 0.00(L) 0.04 - 0.36 x10'3/uL 02/17/2020 6:48 AM CDT [facility] ABS. BASOPHILS 0.02 0.01 - 0.08 x10'3/uL 02/17/2020 6:48 AM CDT [facility] ABS. IMMATURE GRANULOCYTES 0.04 0.00 - 0.49 x10'3/uL 02/17/2020 6:48 AM CDT [facility] 02/17/2020 4:40 AM CDT us Asha Eckert MD LABORATORY Final Resul t [facility] [address] [place] [address], [place] [phone] * XR PELVIS 1 OR 2 VIEWS [...] PM CDT) 02/16/2020 9:09 PM CDT Narrative [facility] ([place]) RAD - 02/16/2020 10:25 PM CDT ?[facility] ? [address] [place] ? Test Date: ?2020-02-16 Pat Name: ? DIANE KLINE ? Department: ? Room: ? OOED Gender: ? Female ? Coronary Clinical Specialist: ?? VB : ?1950 ? Requested By: SEGUN DEVINE Order Number: [id number] ? Reading MD: ?? Yazan Watkins ? Measurements Intervals ?[place] ? Rate: ? 72 ? P: ?81 NM: ? 211 ?QRS: ?72 QRSD: ? 86 ? T: ?79 QT: ? 406 ? QTc: ?445 ? Interpretive Statements SINUS RHYTHM WITH FIRST DEGREE AV BLOCK Compared to ECG 2019 21:09:40 First degree AV block now present Other ischemic changes, not STEMI Segun Devine M.D. CRITICAL ALERT ISSUED ON 02-16-2020 21:15:40 Procedure Note Yazan Watkins MD - 02/16/2020 [facility] [place] [place] Test Date: 2020-02-16 Pat Name: DIANE KLINE Department: Room: [facility] Gender: Female Coronary Clinical Specialist: VB : 1950 Requested By: SEGUN DEVINE Order Number: [id number] Reading MD: Yazan Watkins Measurements Intervals [place] Rate: 72 P: 81 NM: 211 QRS: 72 QRSD: 86 T: 79 QT: 406 QTc: 445 Interpretive Statements SINUS RHYTHM WITH FIRST DEGREE AV BLOCK Compared to ECG 2019 21:09:40 First degree AV block now present Other ischemic changes, not STEMI Segun Devine M.D. CRITICAL ALERT ISSUED ON 02-16-2020 21:15:40 us Segun Devine MD ECG ORDERABLES Final Result Performing Organization Address City/State/[facility] Co de Phone Number [facility] RAD * XR CHEST PORTABLE (02/16/2020 9:03 [...] - 37.6 SEC 02/16/2020 9:57 PM CDT [facility] 02/16/2020 8:53 PM CDT us Segun Devine MD LABORATORY Final Result Performing Organization Address [facility] Co de Phone Number [facility] [address] [place] [address], [place] [phone] * PROTIME/INR, VENOUS (02/16/2020 8:53 PM CDT) PROTIME 11.3 9.6 - 12.2 SEC 02/16/2020 9:57 PM CDT [facility] INR 1.0 02/16/2020 9:57 PM CDT [facility] Comment: Recommended INR Therapeutic Goals: ??2.0-3.0 Routine Therapy ??2.5-3.5 Mechanical Prosthetic Valves (High Risk) ??3.0-4.0 Acute SC (to prevent Systemic Embolism) The INR is used only for patients on stable oral anticoagulant therapy. It makes no significant contribution to the diagnosis or treatment of patients whose Protime is prolonged for other reasons. 02/16/2020 8:53 PM CDT us Segun Devine MD LABORATORY Final Result [facility] [address] [place] [address], * (ABNORMAL) CBC W/DIFF AUTOMATED (02/16/2020 8:53 PM CDT) WBC 13.8(H) 4.5 - 11.0 x10'3/uL 02/16/2020 9:33 PM CDT [facility] RBC 4.13(L) 4.20 - 5.40 x10'6/uL 02/16/2020 9:33 PM CDT [facility] HGB 12.8 12.0 - 16.0 G/DL 02/16/2020 9:33 PM CDT [facility] HCT 39.0 38.0 - 48.0 % 02/16/2020 9:33 PM CDT [facility] MCV 94.4(H) 80.0 - 94.0 FL 02/16/2020 9:33 PM CDT [facility] MCH 31.0 27.0 - 31.0 PG 02/16/2020 9:33 PM CDT [facility] MCHC 32.8 32.0 - 36.0 G/DL 02/16/2020 9:33 PM CDT [facility] RDW 12.7 11.5 - 14.5 % 02/16/2020 9:33 PM CDT [facility] PLT 249 130 - 400 x10'3/uL 02/16/2020 9:33 PM CDT [facility] MPV 10.3 9.3 - 12.2 FL 02/16/2020 9:33 PM CDT [facility] DIFFERENTIAL TYPE AUTOMATED DIFFERENTIAL 02/16/2020 9:33 PM CDT [facility] NEUTROPHILS % 86.5 % 02/16/2020 9:33 PM CDT [facility] LYMPHOCYTES % 5.3 % 02/16/2020 9:33 PM CDT [facility] MONOCYTES % 7.5 % 02/16/2020 9:33 PM CDT [facility] EOSINOPHILS 0.1 % 02/16/2020 9:33 PM CDT [facility] BASOPHILS 0.1 % 02/16/2020 9:33 PM CDT [facility] IMMATURE GRANS % 0.5 % 02/16/20 20 9:33 PM CDT [facility] ABS. NEUTROPHILS TOTAL 11.93(H) 1.80 - 7.70 x10'3/uL 02/16/2020 9:33 PM CDT [facility] ABS. LYMPHOCYTES 0.73(L) 1.00 - 4.80 x10'3/uL 02/16/2020 9:33 PM CDT [facility] ABS. MONOCYTES 1.03(H) 0.24 - 0.86 x10'3/uL 02/16/2020 9:33 PM CDT [facility] ABS. EOSINOPHILS 0.01(L) 0.04 - 0.36 x10'3/uL 02/16/2020 9:33 PM CDT [facility] ABS. BASOPHILS 0.02 0.01 - 0.08 x10'3/uL 02/16/2020 9:33 PM CDT [facility] ABS. IMMATURE GRANULOCYTES 0.07 0.00 - 0.49 x10'3/uL 02/16/2020 9:33 PM CDT [facility] 02/16/2020 8:53 PM CDT us Segun Devine MD LABORATORY Final Result [facility] [address] [place] [address], [place] [phone] * (ABNORMAL) COMPREHENSIVE METABOLIC PANEL (02/16/2020 8:53 PM CDT) [facility] GLUCOSE 146(H) 70 - 99 MG/DL 02/16/2020 9:55 PM CDT [facility] BUN 14 7 - 18 MG/DL 02/16/2020 9:55 PM CDT [facility] CREATININE S/P/B 0.82 0.55 - 1.02 MG/DL 02/16/2020 9:55 PM CDT [facility] SODIUM S/P/B 139 136 - 145 MMOL/L 02/16/2020 9:55 PM CDT [facility] POTASSIUM S/P/B 4.0 3.5 - 5.1 MMOL/L 02/16/2020 9:55 PM CDT [facility] Comment:SLIGHT HEMOLYSIS, RE SULT MAY BE AFFECTED. CHLORIDE S/P/B 107 100 - 108 MMOL/L 02/16/2020 9:55 PM CDT [facility] CO2 26.0 21 - 32 MMOL/L 02/16/2020 9:55 PM CDT [facility] CALCIUM S/P/B 9.6 8.5 - 10.1 MG/DL 02/16/2020 9:55 PM CDT [facility] BILIRUBIN TOTAL S/P/B 0.4 0.2 - 1.2 MG/DL 02/16/2020 9:55 PM CDT [facility] Comment: THIS ASSAY IS NOT RECOMMENDED FOR PATIENTS UNDERGOING TREATMENT WITH ELTROMBOPAG DUE TO THE POTENTIAL FOR FALSELY ELEVATED RESULTS. TOTAL PROTEIN S/P/B 7.6 6.4 - 8.2 G/DL 02/16/2020 9:55 PM CDT [facility] ALBUMIN S/P/B 3.9 3.4 - 5.0 G/DL 02/16/2020 9:55 PM CDT [facility] AST 24 15 - 37 U/L 02/16/2020 9:55 PM CDT [facility] Comment:SLIGHT HEMOLYSIS, RE SULT MAY BE AFFECTED. ALT 18 14 - 55 U/L 02/16/2020 9:55 PM CDT [facility] ALKALINE PHOSPHATASE S/P/B 88 50 - 136 U/L 02/16/2020 9:55 PM CDT [facility] ANION GAP 6.0 5 - 15 MMOL/L 02/16/2020 9:55 PM CDT [facility] BUN CREATININE RATIO 17.0 6 - 26 02/16/2020 9:55 PM CDT [facility] A/G RATIO 1.1 1.0 - 2.0 RATIO 02/16/2020 9:55 PM CDT [facility] EGFR NON-AFR. AMER. 74(L) >90 ML/MIN/1.7 3 M2 02/16/2020 9:55 PM CDT [facility] EGFR AFR. AMER. 85(L) >90 ML/MIN/1.7 3 M2 02/16/2020 9:55 PM CDT [facility] Comment: NOTE: eGFR is not calculated for patients <18 years of age. This is an estimated GFR (CKD EPI) and should not be used for calculating drug doses. 02/16/2020 8:53 PM CDT us Segun Devine MD LABORATORY Final Result [facility] [address] [place] [address], [place] [phone] documented in this encounter Visit Diagnoses Diagnosis Hip fracture ([facility])- Primary Closed fracture of unspecified part of neck of femur Hip fx, left, closed, initial encounter ([facility]) Closed fracture of left hip, initial encounter ([facility]) documented in this encounter Administered Medications Inactive [...] 0600Indications:Closed fracture of left hip, initial encounter ([facility]) New 02/18/2020 6:24 AM CDT 2 g [...] posterolateral abdominal wall. 1603 (Given - Provider: Amrinda Dove RN) 0813 (Given - Provider: Arminda Dove RN) famotidine (PEPCID) injection 20 mg(Linked Group 1) 20 mg, Intravenous, Daily, First dose (after last modification) on Fri02/17/20 at 0900, Until Discontinued, Give if unable to take PO. Renally adjusted for CrCl <50ml/min IV Push over 2 minutes 0947 (Given - Provider: Honey Metcalf RN)1351 (OCT Hold - Provider: User eBoox - Reason: Unreviewed Transfer Orders)1619 (OCT Unhold - Provider: User eBoox) 0855 (See Alternative - Provider: Arminda Dove RN) 0813 (See Alternative - Provider: Arminda Dove RN) famotidine (PEPCID) tablet 20 mg(Linked Group 1) 20 mg, Oral, Daily, First dose (after last modification) on Fri02/17/20 at 0900, Until Discontinued, Renally adjusted for CrCl <50ml/min 0947 (See Alternative - Provider: Honey Metcalf RN)1351 (OCT Hold - Provider: User eBoox - Reason: Unreviewed Transfer Orders)1619 (OCT Unhold - Provider: User eBoox) 0855 (Given - Provider: Arminda Dove RN) 0813 (Given - Provider: Arminda oDve RN) memantine (NAMENDA) tablet 10 mg 10 mg, Oral, 2 times daily, First dose on Fri02/16/20 at 2330, Until Discontinued 0832 (Not Given - Provider: Honey Metcalf RN - Reason: NPO)1351 ([facility] Hold - Provider: User Epic - Reason: Unreviewed Transfer Orders)1619 ([facility] Unhold - Provider: User Epic)2200 (Given [...] Provider: Honey Metcalf RN - Reason: NPO)1351 ([facility] Hold - Provider: User Epic - Reason: Unreviewed Transfer Orders)1619 ([facility] Unhold - Provider: User Epic)2200 (Given [...] only - just prior to incision 1351 ([facility] Hold - Provider: User Epic - Reason: Unreviewed Transfer Orders)1500 (Automatically Held - Provider: User Epic)1619 ([facility] Unhold - Provider: User Epic) Continuous [...] <50ml/min documented in this encounter Care Teams Fagot Maker Relationship Specialty Start Date End Date Ramirez Gibson MD PCP - General FAMILY PRACTICE 03/08/19 documented as of this encounter
--- OUTSIDE RECORDS SUMMARY | 2024-08-11 05:10 | XMS_ITS | Encounter Summary ---
Author Organization [facility] Address [address] [place] [address]. [place], [place] [address] [place] [id number] Care Team Providers Care Science Instructor Name Role Phone Ramirez Gibson MD Primary Care Provider Reason for Referral * Imaging (Emergency) - Closed Specialty Diagnoses / Procedures Referred By Contac t Referred To Contact RADIOLOGY Procedures CT CERV SPINE WO CON Dragan Cullen PA [address] [place] [address] Phone: tel: fax: Referral ID Status Reason Start Date Expiration Date Visits Re quested Visits Authorized [id number] Closed 2019 04/08/2020 1 1 * Imaging (Emergency) - Closed Specialty Diagnoses / Procedures Referred By Contac t Referred To Contact RADIOLOGY Procedures CT HEAD WO CON Dragan Cullen PA [address] [address] Phone: tel: fax: Referral ID Status Reason Start Date Expiration Date Visits Re quested Visits Authorized [id number] Closed 2019 04/08/2020 1 1 Reason for Visit * Reason Comments Fall Encounter Details Date Type Department Care Team (Late st Contact Info) Description 2019 7:37 PM CDT - 2019 11:56 PM CDT Emergency [facility] Emergency [facility] [place] [address] Fall Discharge Disposition: Home or Self Care [...] Care Everywhere. * Foot Fracture Discharge Instructions (Citizen Of [place]) documented in this encounter Medications at Time of Discharge traMADol (ULTRAM) 50 MG tablet Take 1 tablet (50 mg total) by mouth every 8 (eight) hours as needed for Pain. 20 tablet 2019 03/18/2019 documented as of this encounter ED Notes * Rosalina Ruiz RN - 2019 10:39 PM CDT GRAIN BUYER at bedside updating family * Aurora Ortiz [...] encounter of 03/08/19 ECG 12 lead Narrative [address] Test Date: 2019 Pat Name: DIANE KLINE Department: Room: 4 Gender: Claim Clinician: : 1950 Requested By: DRAGAN CULLEN Order Number: [id number] Reading MD: Corey Larry Measurements Intervals [place] Rate: 84 P: 68 MI: 151 QRS: 71 QRSD: 97 T: 58 [...] CLEAN CATCH COLOR YELLOW TRANSPARENCY CLOUDY Specific Media (U) 1.021 1.001 - 1.030 U PH 6.0 5.0 - 9.0 LEUKOCYTE ESTERASE NEGATIVE NEGATIVE NITRITES NEGATIVE NEGATIVE PROTEIN, URINE NEGATIVE <30 MG/DL URINE GLUCOSE NEGATIVE NEGATIVE MG/DL U KETONES NEGATIVE NEGATIVE MG/DL UROBILINOGEN NEGATIVE NEGATIVE MG/DL Urine Bilirubin NEGATIVE NEGATIVE MG/DL BLOOD NEGATIVE NEGATIVE CULTURE & SENSITIVITY INDICATED? CULTURE IS NOT INDICATED IMAGING STUDIES XR FOOT LT 3V Final Result by User, [id number] (03/08 1944) Exam: Left foot x-ray No comparison INDICATION: Fell today, pain. TECHNIQUE: 3 views FINDINGS: Mild bunion changes of the first metatarsal head. Other than the calcaneus, no fracture or malalignment. There is a vertical nondisplaced fracture through the mid calcaneus. IMPRESSION: Calcaneal fracture. Interpreted By: Oli Murrell MD, 2019 7:41 PM XR ANKLE LT 2V Final Result by User, [id number] (03/08 1942) Exam: Left ankle x-ray No [...] XR CHEST PORTABLE Final Result by User, [id number] (03/08 1939) Exam: Chest x-ray No comparison INDICATION: Fell today. TECHNIQUE: One view FINDINGS: Heart size and pulmonary vessels are within normal limits. Lungs are clear. No interstitial edema, pleural fluid, or pneumothorax. No acute bone findings. Mild scoliosis. IMPRESSION: No acute findings. Interpreted By: Oli Murrell MD, 2019 7:[address] CERV SPINE WO CON Final Result by User, [id number] (03/08 1936) EXAM: CT CERV SPINE WO [...] HEAD WO CON Final Result by User, [id number] (03/08 1930) EXAM: CT HEAD WO CON [...] and unable to answer any of this GRAIN BUYER's question Physical exam unremarkable but left foot [...] Ua. [SK] 2333 UA normal. D/w with head housekeeper for possible [facility] transfer, but states dementia along do not meet the criteria. Daughter states pt has appt w/ senior citizen service appt tomorrow for possible shelter placement tomorrow. [SK] ED Course User Index [SK] Nicol-Bebeto Ortiz NP Pt presents to ED c/o fall and left foot injury per daughter. Daughter states worsening dementia inpt and concern for serious self injury. I was concern for possible infection (UTI), but lab and imaging study all negative, but left calcaneus fx. D/w ortho and walking boot ordered. D/w hospitalist and head housekeeper for possible admission for placement, but was told pt did not meet the admission criteria. Then daughter states appt w/ senior service tomorrow 9am for possible ferry terminal agent nursing care placement. Otherwise pt stable for [...] JAYASHREE Phan - 2019 6:[address] [facility] [place] [place] EMERGENCY DEPARTMENT ENCOUNTER Medical Screening Examination [...] URINE CLEAN CATCH 2019 9:32 PM CDT [facility] COLOR (U) YELLOW 2019 11:03 PM CDT [facility] TRANSPARENCY CLOUDY 2019 11:03 PM CDT [facility] SPECIFIC GRAVITY (U) 1.021 1.001 - 1.030 2019 11:03 PM CDT [facility] U PH 6.0 5.0 - 9.0 2019 11:03 PM CDT [facility] LEUKOCYTES (U) NEGATIVE NEGATIVE 2019 11:03 PM CDT [facility] NITRITES NEGATIVE NEGATIVE 2019 11:03 PM CDT [facility] PROTEIN (U) NEGATIVE <30 MG/DL 2019 11:03 PM CDT [facility] URINE GLUCOSE NEGATIVE NEGATIVE MG/DL 2019 11:03 PM CDT [facility] KETONES MG/DL (U) NEGATIVE NEGATIVE MG/DL 2019 11:03 PM CDT [facility] UROBILINOGEN NEGATIVE NEGATIVE MG/DL 2019 11:03 PM T [facility] BILIRUBIN (U) NEGATIVE NEGATIVE MG/DL 2019 11:03 PM CDT [facility] BLOOD (U) NEGATIVE NEGATIVE 2019 11:03 PM CDT [facility] CULTURE & SENSITIVITY INDICATED? CULTURE IS NOT INDICATED 2019 11:03 PM T [facility] URINE SPECIMEN OBTAINED BY CLEAN CATCH PROCEDURE / Unknown 2019 9:33 PM CDT us Dragan BLANC URINE ORDERABLES Final Resu lt [facility] [address] [place] [address], * ECG 12 lead (2019 9:09 PM CDT) 2019 9:09 PM CDT Narrative [facility] ([place]) RAD - 03/09/2019 1:02 AM CDT [facility] ? [address] ? Test Date: ?2019 Pat Name: ? DIANE KLINE ? Department: ? Room: ? 4 Gender: ?Claim Clinician: ?? sk : ?1950 ? Requested By: DRAGAN CULLEN Order Number: [id number] ? Reading MD: ?? Corey Larry ? Measurements Intervals ?[place] ? Rate: ? 84 ? P: ?68 MI: ? 151 ?QRS: ?71 QRSD: ? 97 ? T: ?58 QT: ? 350 ? QTc: ?416 ? Interpretive Statements SINUS RHYTHM No previous ECG available for comparison Obdulio Durant M.D. No ischemic changes Procedure Note Corey Larry MD - 03/09/[address] [place] Test Date: 2019 Pat Name: DIANE KLINE Department: Room: 4 Gender: Claim Clinician: elyssa : 1950 Requested By: DRAGAN CULLEN Order Number: [id number] Reading MD: Corey Larry Measurements Intervals [place] Rate: 84 P: 68 MI: 151 QRS: 71 QRSD: 97 T: 58 QT: 350 QTc: 416 Interpretive Statements SINUS RHYTHM No previous ECG available for comparison Obdulio Durant M.D. No ischemic changes us Dragan BLANC ECG ORDERABLES Final Resul t [facility] * TROPONIN, QUANT (2019 7:47 PM CDT) TROPONIN I <0.015 <0.045 ng/mL. 2019 8:26 PM CDT [facility] Comment: HIGH DOSES OF BIOTIN MAY INTERFERE WITH THIS TEST RESULT. CORRELATION TO CLINICAL HISTORY AND PRESENTATION RECOMMENDED. 2019 7:47 PM CDT us Dragan Cullen PA LABORATORY Final Resul t [facility] [address] [place] [address], [place] [phone] * (ABNORMAL) COMPREHENSIVE METABOLIC PANEL (2019 7:47 PM CDT) Pathologist [facility] GLUCOSE 96 70 - 99 MG/DL 2019 8:26 PM CDT [facility] BUN 11 7 - 18 MG/DL 2019 8:26 PM CDT [facility] CREATININE S/P/B 0.97 0.55 - 1.02 MG/DL 2019 8:26 PM CDT [facility] SODIUM S/P/B 142 136 - 145 MMOL/L 2019 8:26 PM CDT [facility] POTASSIUM S/P/B 3.1(L) 3.5 - 5.1 MMOL/L 2019 8:26 PM CDT [facility] CHLORIDE S/P/B 109(H) 100 - 108 MMOL/L 2019 8:26 PM CDT [facility] CO2 24.1 21 - 32 MMOL/L 2019 8:26 PM CDT [facility] CALCIUM S/P/B 10.7(H) 8.5 - 10.1 MG/DL 2019 8:26 PM T [facility] BILIRUBIN TOTAL S/P/B 0.6 0.2 - 1.2 MG/DL 2019 8:26 PM [facility] TOTAL PROTEIN S/P/B 7.9 6.4 - 8.2 G/DL 2019 8:26 PM T [facility] ALBUMIN S/P/B 4.4 3.4 - 5.0 G/DL 2019 8:26 PM T [facility] AST 18 15 - 37 U/L 2019 8:26 PM [facility] ALT 18 14 - 55 U/L 2019 8:26 PM T [facility] ALKALINE PHOSPHATASE S/P/B 76 50 - 136 U/L 2019 8:26 PM T [facility] ANION GAP 8.9 5 - 15 MMOL/L 2019 8:26 PM [facility] BUN CREATININE RATIO 11.4 6 - 26 2019 8:26 PM [facility] A/G RATIO 1.3 1.0 - 2.0 RATIO 2019 8:26 PM [facility] EGFR NON-AFR. AMER. 60(L) >90 ML/MIN/1.7 3 M2 2019 8:26 PM [facility] EGFR AFR. AMER. 70(L) >90 ML/MIN/1.7 3 M2 2019 8:26 PM [facility] Comment: NOTE: eGFR is not calculated for patients <18 years of age. This is an estimated GFR (CKD EPI) and should not be used for calculating drug doses. 2019 7:47 PM CDT Dragan BLANC LABORATORY Final Resul t [facility] [address] [place] [address], [place] [phone] * (ABNORMAL) CBC W/DIFF AUTOMATED (2019 7:47 PM CDT) WBC 13.5(H) 4.5 - 11.0 x10'3/uL 2019 7:57 PM CDT [facility] RBC 4.06(L) 4.20 - 5.40 x10'6/uL 2019 7:57 PM CDT [facility] HGB 12.4 12.0 - 16.0 G/DL 2019 7:57 PM CDT [facility] HCT 37.9(L) 38.0 - 48.0 % 2019 7:57 PM CDT [facility] MCV 93.3 81.0 - 99.0 FL 2019 7:57 PM CDT [facility] MCH 30.5 27.0 - 31.0 PG 2019 7:57 PM CDT [facility] MCHC 32.7 32.0 - 36.0 G/DL 2019 7:57 PM CDT [facility] RDW 12.8 11.5 - 14.5 % 2019 7:57 PM CDT [facility] PLT 235 130 - 400 x10'3/uL 2019 7:57 PM CDT [facility] MPV 10.0 9.3 - 12.2 FL 2019 7:57 PM CDT [facility] DIFFERENTIAL TYPE AUTOMATED DIFFERENTIAL 2019 7:57 PM CDT [facility] NEUTROPHILS % 76.8 % 2019 7:57 PM CDT [facility] LYMPHOCYTES % 12.0 % 2019 7:57 PM CDT [facility] MONOCYTES % 8.9 % 2019 7:57 PM CDT [facility] EOSINOPHILS 1.5 % 2019 7:57 PM CDT [facility] BASOPHILS 0.4 % 2019 7:57 PM CDT [facility] IMMATURE GRANS % 0.4 % 03/08/20 19 7:57 PM CDT [facility] ABS. NEUTROPHILS TOTAL 10.39(H) 1.80 - 7.70 x10'3/uL 2019 7:57 PM CDT [facility] ABS. LYMPHOCYTES 1.63 1.00 - 4.80 x10'3/uL 2019 7:57 PM CDT [facility] ABS. MONOCYTES 1.21(H) 0.24 - 0.86 x10'3/uL 2019 7:57 PM CDT [facility] ABS. EOSINOPHILS 0.20 0.04 - 0.36 x10'3/uL 2019 7:57 PM CDT [facility] ABS. BASOPHILS 0.05 0.01 - 0.08 x10'3/uL 2019 7:57 PM CDT [facility] ABS. IMMATURE GRANULOCYTES 0.06 0.00 - 0.49 x10'3/uL 2019 7:57 PM T [facility] 2019 7:47 PM CDT us Dragan BLANC LABORATORY Final Resul t [facility] [address] [place] [address], * XR ANKLE LT 2V (2019 7:28 [...] RN) documented in this encounter Care Teams Science Instructor Relationship Specialty Start Date End Date Ramirez Gibson MD PCP - General FAMILY PRACTICE 03/08/19 documented as of this encounter
--- OUTSIDE RECORDS SUMMARY | 2024-08-11 05:10 | XMS_ITS | Encounter Summary ---
Author Organization [facility] Address [address] [place] [address]. [place] [address] Care Team Providers Care Pad Machine Feeder Name Role Phone Chuck Gibson MD Primary Care Provider [phone] Reason for Referral * Imaging (Emergency) - Closed Specialty Diagnoses / Procedures Referred By Contac t Referred To Contact RADIOLOGY Procedures CT HEAD WO Del Veliz MD,PHD [address] [place] [address] Phone: tel: fax: Referral ID Status Reason Start Date Expiration Date Visits Re quested Visits Authorized [id number] Closed 02/02/2023 02/03/2024 1 1 * Imaging (Urgent) - Closed Specialty Diagnoses / Procedures Referred By Contac t Referred To Contact RADIOLOGY Procedures CT CHEST+ABD+PEL WO Del Veliz MD,PHD [address] [place] [address] Phone: tel: fax: Referral ID Status Reason Start Date Expiration Date Visits Re quested Visits Authorized [id number] Closed 02/02/2023 02/03/2024 1 1 Reason for Visit * Reason Comments Abnormal Lab Results Encounter Details Date Type Department Care Team (Late st Contact Info) Description 02/02/2023 9:32 PM CDT - 02/03/2023 7:02 AM CDT Emergency [facility] [place] [address] Del Tang MD,PHD [address] [place] [id number] Abnormal Lab Results Discharge Disposition: Retirement Care Social History Tobacco Use Types Packs/Day [...] * Urinary Tract Infection Discharge Instructions, Adult (Kittitian) * Constipation Discharge Instructions, Adult (Kittitian) documented in this encounter Medications at Time [...] AM CDT Report called to L[facility] at [facility]. * Bridget Pruitt RN - 02/03/2023 4:10 AM CDT [facility] will transport patient to assisted. ETA [id number] * Del Tang MD,PHD - [...] CHEST+ABD+PEL WO CON Final Result by User, [email or web address] (02/02 3354) INDICATION: Elevated sodium level and white count. [...] HEAD WO CON Final Result by User, [email or web address] (02/02 2310) Date: 02/02/2023 10:36 PM Exam: [...] By: Obdulio Rolon MD, 02/02/2023 10:59 PM ED Course [...] is not hypoxic I interpreted the patient's night monitor as showing a sinus rhythm and [...] determining a disposition: The patient is a assisted resident where ongoing medical care and assistance [...] 9:34 PM CDT Pt to ED from [facility] for elevated sodium level and wbc count. shelter staff said pt has had decreased appetite [...] - 2.0 MMOL/L 02/03/2023 3:23 AM CDT [facility] 02/03/2023 2:56 AM CDT Del Tang MD,PHD LABORATORY Final Resu lt [facility] [address] [place] [address], [place] [phone] * CULTURE, BACTERIA, BLOOD (02/03/2023 1:02 AM CDT) SPEC DESCRIPTION BLOOD 02/03/2023 12:26 AM CDT [facility] SPECIAL REQUESTS NO SPECIAL REQUEST 02/03/2023 12:26 AM CDT [facility] CULTURE RESULT NO GROWTH 5 DAYS 02/08/2023 8:39 AM CDT [facility] BLOOD SPECIMEN OBTAINED FOR BLOOD CULTURE / Unknown 02/03/2023 1:02 AM CDT 02/03/2023 1:06 AM CDT Del Tang MD,PHD MICROBIOLOGY - GENERAL ORD ERABLES Final Result [facility] [address] [place] [address], [place] [phone] * (ABNORMAL) LACTIC ACID (02/03/2023 1:02 AM CDT) LACTIC ACID VENOUS 2.3(H) 0.4 - 2.0 MMOL/L 02/03/2023 1:27 AM CDT [facility] Comment: BPM CALLED CRITICAL RESULTS AT [id number] TO AND READ BACK BY DIANA GALLO RN 02/03/2023 1:02 AM CDT Del Tang MD,PHD LABORATORY Final Resu lt [facility] [address] [place] [address], [place] [phone] * CULTURE, BACTERIA, BLOOD (02/03/2023 1:00 AM CDT) SPEC DESCRIPTION BLOOD 02/03/2023 12:26 AM CDT [facility] SPECIAL REQUESTS NO SPECIAL REQUEST 02/03/2023 12:26 AM CDT [facility] CULTURE RESULT NO GROWTH 5 DAYS 02/08/2023 8:39 AM CDT [facility] BLOOD SPECIMEN OBTAINED FOR BLOOD CULTURE / Unknown 02/03/2023 1:00 AM CDT 02/03/2023 1:06 AM CDT Del Tang MD,PHD MICROBIOLOGY - GENERAL ORD ERABLES Final Result Performing Organization Address City/State/[facility] Co de Phone Number [facility] [address] [place] [address], [place] [phone] * (ABNORMAL) CULTURE URINE (02/02/2023 11:54 PM CDT) SPEC DESCRIPTION URINE STRAIGHT CATH 02/03/2023 12:15 AM CDT [facility] SPECIAL REQUESTS NO SPECIAL REQUEST 02/03/2023 12:15 AM CDT [facility] CULTURE RESULT >100,000 COL/ML ESCHERICHIA COLI PROBABLE EXTENDED SPECTRUM BETA LACTAMASE CLINICAL NURSE REVIEWER (A) 02/05/2023 8:27 AM CDT [facility] URINE SPECIMEN OBTAINED BY SINGLE CATHETERIZATION [...] MICROBIOLOGY - GENERAL ORD ERABLES Final Result [facility] [address] [place] [id number], * (ABNORMAL) URINALYSIS (02/02/2023 11:54 PM CDT) SPECIMEN TYPE URINE STRAIGHT CATH 02/02/2023 11:54 PM CDT [facility] COLOR (U) YELLOW 02/03/2023 12:14 AM CDT [facility] TRANSPARENCY TURBID 02/03/2023 12:14 AM CDT [facility] SPECIFIC GRAVITY (U) 1.026 1.001 - 1.030 02/03/2023 12:14 AM CDT [facility] U PH 5.5 5.0 - 9.0 02/03/2023 12:14 AM CDT [facility] LEUKOCYTES (U) 250(A) NEGATIVE 02/03/2023 12:14 AM CDT [facility] NITRITES 2+(A) NEGATIVE 02/03/2023 12:14 AM CDT [facility] PROTEIN (U) 70(H) <30 MG/DL 02/03/2023 12:14 AM CDT [facility] URINE GLUCOSE NORMAL NORMAL MG/DL 02/03/2023 12:14 AM CDT [facility] KETONES MG/DL (U) TRACE(A) NEGATIVE MG/DL 02/03/2023 12:14 AM CDT [facility] UROBILINOGEN NORMAL NORMAL MG/DL 02/03/2023 12:14 AM CDT [facility] BILIRUBIN (U) NEGATIVE NEGATIVE MG/DL 02/03/2023 12:14 AM CDT [facility] BLOOD (U) 1+(A) NEGATIVE 02/03/2023 12:14 AM CDT [facility] CULTURE & SENSITIVITY INDICATED? SPECIMEN SETUP FOR CULTURE 02/03/2023 12:14 AM CDT [facility] MUCUS FEW /LPF 02/03/2023 12:14 AM CDT [facility] WBC/HPF 69(H) <6 /HPF 02/03/2023 12:14 AM CDT [facility] RBC/HPF 4 <6 /HPF 02/03/2023 12:14 AM CDT [facility] BACTERIA (U) MANY(A) NONE /HPF 02/03/2023 12:14 AM CDT [facility] SQUAMOUS EPITHELIALS RARE /HPF 02/03/2023 12:14 AM CDT [facility] URINE, STRAIGHT CATH 02/02/2023 11:54 PM CDT us Del Tang MD,PHD URINE ORDERABLES Final Res ult [facility] [address] [place] [address], [place] [phone] * CT HEAD WO CON (02/02/2023 10:53 [...] - 30.0 MCG/ML 02/02/2023 10:45 PM CDT [facility] Comment: ?THERAPEUTIC: 10-30 ?TOXIC: >200 02/02/2023 9:5 5 PM CDT Del aTng MD,PHD LABORATORY Final Resu lt Performing Organization Address City/State/[facility] Co de Phone Number [facility] [address] [place] [address], * VALPROIC ACID (02/02/2023 9:55 PM CDT) VALPROIC ACID 63.9 50 - 100 MCG/ML 02/02/2023 10:46 PM CDT [facility] Comment: ?THERAPEUTIC: 50-100 ?TOXIC: >150 DOSE UNKNOWN LAST DOSE 02/02/2023 10:31 PM CDT [facility] 02/02/2023 9:55 PM CDT Del Tang MD,PHD LABORATORY Final Resu lt Performing Organization Address [facility] Co de Phone Number [facility] [address] [place] [address], * PROCALCITONIN (PCT) (02/02/2023 9:55 PM CDT) Procalcitonin 0.12 <0.5 NG/ML 02/02/2023 10:38 PM CDT [facility] 02/02/2023 9:55 PM CDT us Del Tang MD,PHD LABORATORY Final Resu lt Performing Organization Address City/[facility]/ZIP Co de Phone Number [facility] [address] [place] [address], [place] [phone] * (ABNORMAL) COMPREHENSIVE METABOLIC PANEL (02/02/2023 9:55 PM CDT) [facility] GLUCOSE 112(H) 70 - 99 MG/DL 02/02/2023 10:21 PM CDT [facility] BUN 19(H) 7 - 18 MG/DL 02/02/2023 10:21 PM CDT [facility] CREATININE S/P/B 0.75 0.55 - 1.02 MG/DL 02/02/2023 10:21 PM CDT [facility] SODIUM S/P/B 145 136 - 145 MMOL/L 02/02/2023 10:21 PM CDT [facility] POTASSIUM S/P/B 4.5 3.5 - 5.1 MMOL/L 02/02/2023 10:21 PM CDT [facility] Comment:SLIGHT HEMOLYSIS, RE SULT MAY BE AFFECTED. CHLORIDE S/P/B 114(H) 100 - 108 MMOL/L 02/02/2023 10:21 PM CDT [facility] CO2 28.8 21 - 32 MMOL/L 02/02/2023 10:21 PM CDT [facility] CALCIUM S/P/B 10.7(H) 8.5 - 10.1 MG/DL 02/02/2023 10:21 PM CDT [facility] BILIRUBIN TOTAL S/P/B 0.8 0.2 - 1.2 MG/DL 02/02/2023 10:21 PM CDT [facility] Comment: THIS ASSAY IS NOT RECOMMENDED FOR PATIENTS UNDERGOING TREATMENT WITH ELTROMBOPAG DUE TO THE POTENTIAL FOR FALSELY ELEVATED RESULTS. TOTAL PROTEIN S/P/B 8.1 6.4 - 8.2 G/DL 02/02/2023 10:21 PM CDT [facility] ALBUMIN S/P/B 2.9(L) 3.4 - 5.0 G/DL 02/02/2023 10:21 PM CDT [facility] AST 55(H) 15 - 37 U/L 02/02/2023 10:21 PM CDT [facility] Comment:SLIGHT HEMOLYSIS, RE SULT MAY BE AFFECTED. ALT 59(H) 14 - 55 U/L 02/02/2023 10:21 PM CDT [facility] ALKALINE PHOSPHATASE S/P/B 103 50 - 136 U/L 02/02/2023 10:21 PM CDT [facility] ANION GAP 2.2(L) 5 - 15 MMOL/L 02/02/2023 10:21 PM CDT [facility] BUN CREATININE RATIO 25.4 6 - 26 02/02/2023 10:21 PM CDT [facility] A/G RATIO 0.6(L) 1.0 - 2.0 RATIO 02/02/2023 10:21 PM T [facility] GFR ESTIMATE 85(L) >90 ML/MIN/1.7 3 M2 02/02/2023 10:21 PM CDT [facility] Comment: NOTE: eGFR is not calculated for patients <18 years of age. This is an estimated GFR calculation using the new CKD EPI creatinine equation without race and so does not require a correction factor for race. This estimated GFR should not be used for calculating drug doses. 02/02/2023 9:55 PM CDT us Del Tang MD,PHD LABORATORY Final Resu lt [facility] [address] [place] [address], [place] [phone] * (ABNORMAL) CBC W/DIFF AUTOMATED (02/02/2023 9:55 PM CDT) WBC 12.2(H) 4.5 - 11.0 x10'3/uL 02/02/2023 10:07 PM CDT [facility] RBC 4.01(L) 4.20 - 5.40 x10'6/uL 02/02/2023 10:07 PM CDT [facility] HGB 12.4 12.0 - 16.0 G/DL 02/02/2023 10:07 PM CDT [facility] HCT 39.4 38.0 - 48.0 % 02/02/2023 10:07 PM CDT [facility] MCV 98.3 81.0 - 99.0 FL 02/02/2023 10:07 PM CDT [facility] MCH 30.9 27.0 - 31.0 PG 02/02/2023 10:07 PM CDT [facility] MCHC 31.5(L) 32.0 - 36.0 G/DL 02/02/2023 10:07 PM CDT [facility] RDW 14.2 11.5 - 14.5 % 02/02/2023 10:07 PM CDT [facility] PLT 342 130 - 400 x10'3/uL 02/02/2023 10:07 PM CDT [facility] MPV 11.1 9.3 - 12.2 FL 02/02/2023 10:07 PM CDT [facility] DIFFERENTIAL TYPE MANUAL DIFFERENTIAL 02/02/2023 10:29 PM CDT [facility] SEG NEUTROPHILS 73 % 10:29 PM CDT [facility] LYMPHOCYTES 11 % 02/02/2023 10:29 PM CDT [facility] MONOCYTES 16 % 02/02/2023 10:29 PM CDT [facility] ABS. NEUTROPHILS CALCULATED 8.91(H) 1.80 - 7.70 x10'3/uL 02/02/2023 10:29 PM CDT [facility] ABS.LYMPHOCYTES CALCULATED 1.34 1.00 - 4.80 x10'3/uL 02/02/2023 10:29 PM CDT [facility] ABS. MONOCYTES CALCULATED 1.95(H) 0.24 - 0.86 x10'3/uL 02/02/2023 10:29 PM CDT [facility] RBC MORPHOLOGY SLIDE REVIEWED 2022 10:29 PM CDT [facility] POIKLO 1+ 02/02/2023 10:29 PM CDT [facility] PLT EST. ADEQUATE 02/02/2023 10:29 PM CDT [facility] 02/02/2023 9:55 PM CDT Del Tang MD,PHD LABORATORY Final Resu lt [facility] [address] [place] [id number], * CORONAVIRUS (COVID-19) INFLUENZA A & B ANTIGEN IA PANEL (02/02/2023 10:39 AM CDT) Pathologist [facility] CORONAVIRUS ANTIGEN IA NEGATIVE NEGATIVE 02/03/2023 12:19 AM CDT [facility] Comment: NEGATIVE RESULTS SHOULD BE TREATED [...] A NEGATIVE NEGATIVE 02/03/2023 12:19 AM CDT [facility] INFLUENZA B NEGATIVE NEGATIVE 02/03/2023 12:19 AM CDT [facility] Comment: Interpretation: Negative for Influenza A [...] SPECIMEN TYPE NASAL 02/02/2023 11:54 PM CDT [facility] NASAL STRUCTURE / Unknown 02/02/2023 10:39 AM CDT us Del Tang MD,PHD MICROBIOLOGY - GENERAL ORD ERABLES Final Result Performing Organization Address [facility]/ZIP Co de Phone Number [facility] [address] [place], [place] [address], [place] [phone] * HEPATITIS PANEL,ACUTE (02/02/2023 2:56 AM CDT) HEPATITIS B SURFACE AG NON-REACTI VE NON-REACTI VE 02/03/2023 3:43 AM CDT [facility] HEP B CORE IGM NON-REACTI VE NON-REACTI VE 02/03/2023 4:10 AM CDT [facility] HAV IGM NON-REACTI VE NON-REACTI VE 02/03/2023 4:10 AM CDT [facility] HEPATITIS C AB NON-REACTI VE NON-REACTI VE 02/03/2023 4:10 AM CDT [facility] 02/02/2023 2:56 AM CDT us Del Tang MD,PHD LABORATORY Final Resu lt [facility] [address] [place] [address], [place] [phone] documented in this encounter Visit Diagnoses Diagnosis [...] documented as of this encounter Care Teams Pad Machine Feeder Relationship Specialty Start Date End Date Chuck Gibson MD PCP - General FAMILY PRACTICE 03/08/19 documented as of this encounter
== END 2024-08-07 14:47 ==
PROVIDERS: Emergency Provider Emergency Medicine; PCP Internal Medicine
DX: E86.0 Dehydration (principal); T17.928A Food in respiratory tract, part unspecified causing other injury, initial encounter; W44.F3XA Food entering into or through a natural orifice, initial encounter
CPT/HCPCS: 36415; 71045; 80048; 96360; 99283; J7030